=== PATIENT | female | born 1955 | race Caucasian/White ===

== ENCOUNTER → 2022-02-05 | Outpatient (CLI) | payer MEDICARE, OTHER, SELFPAY ==
--- NOTE | 2022-02-05 16:38 | CT_ITS ---
EXAM: CT CHEST WITHOUT INTRAVENOUS CONTRAST CLINICAL INDICATION: COUGH TECHNIQUE: Helically acquired images were obtained of the chest without intravenous contrast. This CT exam was performed using one or more of the following dose reduction techniques: automated exposure control, adjustment of the mA and/or kV according to patient size, and/or use of iterative reconstruction technique. This report was created using [employer] report generation technology. RADIATION DOSE: Total DLP: 237.13 mGy-cm. COMPARISON: None. FINDINGS: LUNGS AND PLEURAL SPACES: Minimal biapical pleuroparenchymal scarring. Linear scarring or atelectasis within the azygous-esophageal recess. No pulmonary interstitial thickening. No patchy pneumonia. Anteriorly within the right middle lobe is a 6 x 3 x 3 mm ovoid circumscribed noncalcified subpleural nodule. HEART: Minimal coronary artery calcification. No significant pericardial effusion. MEDIASTINUM: Unremarkable. No mediastinal adenopathy. Esophagus is unremarkable. No hiatal hernia. THYROID: Visualized thyroid is unremarkable. No thyroid lesions. BONES/JOINTS: No lytic or blastic osseous lesion. Midthoracic degenerative spurring. Multiple thoracic Schmorl''s nodes. Prominent Schmorl''s node or old central compression deformity of the L1 and L2 superior endplates. SOFT TISSUES: Findings of prior bilateral mastectomy. Surgical clips within the right anterior chest wall. VASCULATURE: Minimal fusiform dilatation of the ascending thoracic aorta which measures 3.7 cm in transverse diameter, as can be seen with aortic valvular disease. Aortic arch and descending thoracic aorta are minimally calcific and normal in caliber. LYMPH NODES: No mediastinal adenopathy. No axillary adenopathy. UPPER ABDOMEN: Visualized portions of the liver, gallbladder, pancreas, spleen, adrenal glands and renal upper poles are unremarkable. No pneumoperitoneum is noted. CT/Chest without Contrast IMPRESSION: No pneumonia or findings of bronchitis. 6 x 3 x 3 mm circumscribed noncalcified subpleural nodule in the right middle lobe, probably benign; Fleischner Society Guidelines for low-risk patients recommend follow-up chest CT at 6-12 months. If unchanged consider an additional follow-up CT at 18-24 months. For high-risk patients (smoking history or other known risk factors) initial follow-up chest CT at 6-12 months and if unchanged, 18-24 months. Electronically Signed: Robert Tamayo MD at 3:55 EDT ,
== END | disposition home or self-care (01) ==
LOC: CT 16:36
PROVIDERS: PCP Internal Medicine; Visit Provider Internal Medicine Pulmonary Disease
DX: R05.9 Cough, unspecified (principal); R91.1 Solitary pulmonary nodule
CPT/HCPCS: 71250

== ENCOUNTER 2022-11-11 07:21 | Day surgery (SDC) | payer MEDICARE, SELFPAY ==
[2022-11-11] VITALS (7 sets, daily range): BP systolic 98–115; BP diastolic 68–89; PULSE 63–78; RESP 16–17; TEMP 36.2–36.4; O2SAT 95–100; BMI 19.8
[2022-11-11] MEDS: Lactated Ringers 1,000 ML 15 ML IV (07:46)
--- NOTE | 2022-11-11 08:30 | EGD_PTH ---
PATIENT: MANNY REINOSO LOC: EN U#:[id number] AGE/SX: 67/F ROOM: RE11/11/[address]: Dr. Homero Chou DO : 1955 BED: DIS: 11/11/2022 SPEC #: [id number] RECD: 11/11/22 10:13 STATUS: DELFINA RELang #: [id number] KAHLIL: 11/11/22 08:[address]: Homero Chou DEPT: SURGICAL PATHOLOGY RECD BY: Edwige Henderson ENTERED: 11/11/22 13:02 SP TYPE: EGD BIOPSY OT DR: Dr. Drea Kingston MD Tissues: Esophagus, NOS Procedures: Surgery Specimen Level IV HEADER OPERATION: EGD ([facility] [place], [place]) with PH probe placement, biopsy PRE-OP DIAGNOSIS: GERD TISSUE SUBMITTED: Random esophagus biopsy MICROSCOPIC DIAGNOSIS Esophagus, random biopsy: Fragments of squamous mucosa with minimal chronic inflammation. SJ:diego 11/12/2022 MICROSCOPIC DESCRIPTION Slides are reviewed. GROSS DESCRIPTION Received in fixative is one container labeled with the patient's name and designated random esophagus biopsy. The specimen consists of two irregular fragments of light suarez soft tissue that in aggregate measure 0.6 x 0.3 x 0.1 cm. The specimen is totally submitted in one cassette. / BENJAMIN:diego 11/11/2022 TC:3 CPT: 58129
--- NOTE | 2022-11-11 08:48 | OP.EGD_ITS ---
Patient Name: Izzy Rosenthal Procedure Date: 11/11/2022 8:28 AM Date of : 1955 Age: 67 Procedure: Upper GI endoscopy Indications: Suspected esophageal reflux Providers: Homero Chou DO Referring MD: Homero Chou DO Medicines: Monitored Anesthesia Care Patient Profile: This is a 67 year old female. Refer to note in patient chart for documentation of history and physical. Patient has symptoms of chronic cough. Complications: No immediate complications. Procedure: Pre-Anesthesia Assessment: - Prior to the procedure, a History and Physical was performed, and patient medications and allergies were reviewed. The risks and benefits of the procedure and the sedation options and risks were discussed with the patient. All questions were answered and informed consent was obtained. Patient identification and proposed procedure were verified by the physician in the pre-procedure area. Mental Status Examination: alert and oriented. Respiratory Examination: clear to auscultation. CV Examination: normal. Prophylactic Antibiotics: The patient does not require prophylactic antibiotics. Prior Anticoagulants: The patient has taken no previous anticoagulant or antiplatelet agents. After reviewing the risks and benefits, the patient was deemed in satisfactory condition to undergo the procedure. The anesthesia plan was to use monitored anesthesia care (MAC). Immediately prior to administration of medications, the patient was re-assessed for adequacy to receive sedatives. The heart rate, respiratory rate, oxygen saturations, blood pressure, adequacy of pulmonary ventilation, and response to care were monitored throughout the procedure. The physical status of the patient was re-assessed after the procedure. After obtaining informed consent, the endoscope was passed under direct vision. Throughout the procedure, the patient's blood pressure, pulse, and oxygen saturations were monitored continuously. The gastroscope was introduced through the mouth, and advanced to the second part of duodenum. The upper GI endoscopy was accomplished without difficulty. The patient tolerated the procedure well. Scope In: 8:39:33 AM Scope Out: 8:43:46 AM Total Procedure Duration Time 0 hours 4 minutes 13 seconds Findings: The examined esophagus was normal. Biopsies were obtained from the proximal and distal esophagus with cold forceps for histology of suspected eosinophilic esophagitis. The MCCOLLUM capsule with delivery system was introduced through the mouth and advanced into the esophagus, such that the MCCOLLUM pH capsule was positioned 40 cm from the incisors, which was 6 cm proximal to the GE junction. Suction was applied to the well of the MCCOLLUM pH capsule to suck in the adjacent mucosa of the esophagus using the external vacuum pump set at a minimum vacuum pressure of 550 mmHg for 30 seconds. The MCCOLLUM pH capsule was then deployed by depressing the plunger on top of the handle to advance the locking pin into the mucosa, thereby attaching the capsule to the esophagus. The plunger was then rotated a quarter turn clockwise to release the capsule from the delivery system. The delivery system was then withdrawn. Endoscopy was utilized for probe placement and diagnostic evaluation. The entire examined stomach was normal. A small hiatal hernia was present. The second portion of the duodenum was normal. Impression: - Normal esophagus. Biopsied. - Normal stomach. - Small hiatal hernia. - Normal second portion of the duodenum. - The MCCOLLUM pH capsule was positioned 40 cm from the incisors, which was 6 cm proximal to the GE junction. Recommendation: - Discharge patient to home. - Resume previous diet. - Continue present medications. - Await pathology results. Procedure Code(s): --- Professional --- 45823, Esophagogastroduodenoscopy, flexible, transoral; with biopsy, single or multiple CPT copyright 2017 [employer] [place] [employer]. All rights reserved. The codes documented in this report are preliminary and upon beveler review may be revised to meet current compliance requirements. Homero Chou DO 11/11/2022 8:48:16 AM This report has been signed electronically. Number of Addenda: 0 Note Initiated On: 11/11/2022 8:28 AM
--- NOTE | 2022-11-11 08:49 | OP.CCLET_ITS ---
11/11/2022 Drea Kingston [address] [place] [address] Re : Upper GI endoscopy procedure for Izzy Rosenthal Dear Dr. Kingston This procedure was performed on Friday, November 11, 2022. My impressions and recommendations are as follows: Impressions : - Normal esophagus. Biopsied. - Normal stomach. - Small hiatal hernia. - Normal second portion of the duodenum. - The MCCOLLUM pH capsule was positioned 40 cm from the incisors, which was 6 cm proximal to the GE junction. Recommendations : - Discharge patient to home. - Resume previous diet. - Continue present medications. - Await pathology results. My findings are described in the full procedure note, which is enclosed. If I can be of further assistance, please feel free to contact me at . Sincerely, Homero Chou, 11/11/2022 8:48:16 AM This report has been signed electronically.
--- NOTE | 2022-11-13 09:50 | HP.PCM_ITS ---
History and Physical Date of Admission: 11/11/22 67 F who presents to the office today to establish with GI for chronic cough that began greater than 10 yrs ago. She is referred by [employer] [facility] Dr Thomson for pH probe. Per Dr Sams's note, her Allergies are controlled with Claritin- D, nasacort, astelin, and singulair; no relief of cough with recent pulse of oral steroids; PRASANTH and ESR are normal, they were checked due to concern for possible endobronchial sarcoid; asthma controlled with Breo. She has rectal prolapse, needs surgery for it, but needs to get cough controlled first. She was followed by GI Dr Coto in [place] previously, had EGD and colonoscopy a couple of years ago, treated for the cough with amitriptyline but no relief and she was zombie on it, also tried gabapentin. Taking pantoprazole 20 mg daily, doesn't think it helps with the cough. No dysphagia. No nausea, vomiting. No heartburn or acid reflux. Cough can be worse when the temperature changes. Increased phlegm with milk products. Carbonated drinks cause her to lose her voice. Saw a food rn transition recently, he recommended Creon--no improvement to cough, allergic to tomato, potato, salmon, tuna. [place] and tuna were the only fish/meat that she ate. Follows a mostly plant-based diet due to 's heart health issues. Less bloating on gluten-free diet, but no change in cough. Tends to have lots of gas, even before vegan diet. BMs are good, no diarrhea or constipation, no melena or hematochezia. PMH: breast cancer s/p bilateral mastectomy, allergies, asthma ROS Const Constitutional: No fatigue ENT ENT: No difficulty swallowing Gastro GI: No abdominal pain, belching, bloating, change in bowel habits, change in stool character, coffee ground emesis, constipation, cramping, diarrhea, heartburn, difficulty swallowing, feeling full early, excessive flatus, incontinent of stools, Vomiting blood/hematemesis, Blood in stool, loose stools, Black,tarry stools, nausea/dyspepsia, pain with swallowing, vomiting or other Musc Musculoskeletal: No joint pain Skin Skin: No yellowing of the eye or itchy eyes Psych Psychiatric: No anxiety and No depression Endo Endocrine: No fatigue Aller/Imm Allergy/Immunologic: No itchy eyes Micheal/Lymp Hematologic/Lymphatic: No easy bleeding or easy bruising Exam Const General: cooperative and healthy appearing Nutritional Appearance: average body habitus Orientation: alert, awake and oriented x3 HENMT Head: normal to inspection Eyes Sclera: sclerae normal Resp Effort & Inspection: normal respiratory effort Other: coughed repeatedly when first arrived to appt GI Inspection: normal to inspection Assessment and Plan Assessment and Plan (1) Chronic cough: Status: Chronic Plan: 67 yr old female with chronic dry cough. Allergies and asthma are controlled. Consider EOE. No improvement in cough with PPI, gluten-free, Creon (per rn transition). EGD with Treviño pH probe, she will d/c pantoprazole one wk prior. Could consider esophageal manometry. Records release for GI Dr Coto. F/u 2 wks after EGD. I have examined the patient and the H&P has been reviewed. There are no clinical changes since date of exam.
--- NOTE | 2024-12-06 08:32 | PCM.PRE.AN2 ---
ASA Classification* ASA Classification ASA Classification: 2 Assessment & Plan Anesthesia* Anesthesia Assessment Anesthesia Assessment: Discussed sedation and/or anesthesia options, risks, benefits, and alternatives with patient/parents/legal guardian/POA. Questions invited. The patient/parents/legal guardian/POA seems to understand and agrees to proceed with anesthesia plan. Reviewed the physical assessment, medical history, allergy history and patient home medications list prior to surgery/procedure/anesthetic and documented any changes. Performed airway and anesthesia risk assessments. Anesthesia Type Anesthesia Type: MAC Anesthesia Focused Assessment* Temperature: 97.1 F Pulse Rate: 63 Blood Pressure: 115/76 Respiratory Rate: 16 Pulse Ox: 97 Oxygen Delivery Method: Room Air Airway Assessment Mouth opens: >3 cm Mallampati Score: I Teeth Condition: Intact Neck Range of motion (ROM): Full ROM Labs Anesthesia Preop lab: CBC WBC 4.0 K/mm3 (4.4-11.0) L 11/27/22 10:53 11/27/22 RBC 4.40 M/mm3 (4.2-5.4) 11/27/22 10:53 11/27/22 Hgb 13.5 g/dL (12.0-15.0) 11/27/22 10:53 11/27/22 Hct 41.6 % (37-47) 11/27/22 10:53 11/27/22 Plt Count 246 K/mm3 (150-450) 11/27/22 10:53 11/27/22 CHEMISTRY Potassium 3.7 mmol/L (3.5-5.1) 11/27/22 10:53 11/27/22 Sodium 140 mmol/L (136-145) 11/27/22 10:53 11/27/22 BUN 10 mg/dL (7-18) 11/27/22 10:53 11/27/22 Creatinine 0.95 mg/dL (0.55-1.02) 11/27/22 10:53 11/27/22 Glucose 87 mg/dL (74-106) 11/27/22 10:53 11/27/22 COAG Pre-Assessment Diagnosis/Proposed Procedure Planned Operative Procedure(s): EGD PH PROBE Anesthesia History Anesthesia History - instructional media services technician: Anesthesia History - instructional media services technician Hx Hospitalization No 11/05/22 12:22 Any Problems With Anesthesia Yes: AL[employer]LE [employer] 11/05/22 12:22 Cholinesterase deficiency No 11/05/22 12:22 You/Your Family Experience No 11/05/22 12:22 fever (hyperthermia) with Relationship Recent Exposure to Contagious No 11/11/22 07:44 Disease Does patient have nerve No 11/05/22 12:22 stimulator Patient instructed to have device shut off --Does patient have Pacemaker No 11/11/22 07:44 or ICD? When Was Last Pacemaker Check QUESTION #4 FULL TEXT: You/Your Family Experience fever (hyperthermia) with Anesthesia Last Oral Intake Last Oral intake: Last Oral Intake NPO since 00:00 11/11/22 07:44 Meds taken in AM with sips of No 11/11/22 07:44 water? Meds patient instructed to take am of surgery PONV PONV - instructional media services technician: PONV - instructional media services technician Female Yes 11/05/22 12:22 HX of Motion Sickness No 11/05/22 12:22 HX of N/V After Surgery No 11/05/22 12:22 Non-Smoker Yes 11/05/22 12:22 Duration of Surgery greater No 11/05/22 12:22 than 60 minutes Number of Risk Factors 2 11/05/22 12:22 PONV Score Moderate Risk 11/05/22 12:22 Height & Weight Height & Weight: Anesthesia: Height & Weight Height 5 ft 5 in 11/11/22 07:44 Weight: 54 kg 11/11/22 07:44 Body Mass Index (BMI) 19.8 11/11/22 07:44 Respiratory Assessment Respiratory Assessment - instructional media services technician: Respiratory Tract Infection Hx - instructional media services technician Hx Respiratory Tract Infection No 11/05/22 12:22 STOP Sleep Apnea STOP Sleep Apnea - instructional media services technician: STOP Sleep Apnea - instructional media services technician Hx Hypertension No 11/05/22 12:22 Hx Sleep Apnea No 11/05/22 12:22 CPAP BIPAP Do you snore loudly (louder No 11/05/22 12:22 than talking or can be heard Do you often feel tired/ No 11/05/22 12:22 fatigued/ sleepy during daytime? Has anyone observed you stop No 11/05/22 12:22 breathing during sleep? STOP Results Negative 11/11/22 08:48 QUESTION #5 FULL TEXT : Do you snore loudly (louder than talking or can be heard through closed doors)? 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 Use History - instructional media services technician: Tobacco Use History - instructional media services technician Tobacco Use Smoking Status Never smoker 11/05/22 12:22 Hx Tobacco Use No 11/05/22 12:22 Years Smoking Packs Smoked per Day Smoking Cessation Date was within the last 15 years Hx Smoking Cessation Date Hx Smoking Cessation Counseling Hematologic Medial History Hematologic Hx - instructional media services technician: Hematologic Medical Hx - documentation clerk Hx of Blood Transfusion No 11/05/22 12:22 Hx of Transfusion in last 3 No 11/05/22 12:22 Months Date of Last Transfusion (if within last 3 months) Ever experience any problems No 11/05/22 12:22 with transfusion(s)? Specify any problems Hx of Preganancy in last 3 No 11/05/22 12:22 Months Nurse Filling Out Transfusion DSCHRIBER 11/05/22 12:22 & Questions: Date: 11/05/22 11/05/22 12:22 Time: 12:24 11/05/22 12:22 Patient unable to answer at this time (ie. confused, unrespo /Reproduction History /Reproductive History - instructional media services technician: /Reproductive Hx- instructional media services technician Hx Now No 11/05/22 12:22 Gestational Age (in weeks): EDC: Hx Hx Para Hx Section SAB No 11/05/22 12:22 PFSH Medical History Cancer Easy bruising History of hiatal hernia Asthma History of echocardiogram History of mitral valve prolapse Wears hearing aid Wears contact lenses Wears glasses Post-menopausal Anemia Dietary restriction History of ulceration Rectal prolapse Non-smoker Hx of fracture of wrist HX: breast cancer Osteopenia Chronic cough GERD (gastroesophageal reflux disease) Mild persistent asthma Allergic rhinitis Home Medications ?Medication ?Instructions ?Recorded ?Last Taken ?Type Saccharomyces boulardii 250 mg 5,000 mmu cells PO DAILY 05/05/22 12/04/24 History capsule (Digest Probiotic (S.boulardii)) albuterol sulfate 90 mcg/actuation 1 inh inhalation ONCE PRN 05/05/22 Unknown History aerosol inhaler (ProAir HFA) shortness of breath or wheezing azelastine 137 mcg (0.1 %) nasal 1 spray intranasal BID 05/05/22 12/04/24 History spray calcium-vit D3-ferrous fumarate 1 tab PO DAILY 05/05/22 Unknown History 600 mg-125 unit-18 mg tablet glucosamine sulfate 500 mg tablet 500 mg PO DAILY 05/05/22 Unknown History (Glucosamine) montelukast 10 mg tablet 10 mg PO DAILY 05/05/22 12/04/24 History (Singulair) multivitamin 2 tab PO DAILY 05/05/22 Unknown History pantoprazole 20 mg tablet,delayed 20 mg PO DAILY 05/05/22 12/04/24 History release (Protonix) cholecalciferol (vitamin D3) 25 25 mcg PO DAILY 11/05/22 12/04/24 History mcg (1,000 unit) capsule (Vitamin D3) loratadine-pseudoephedrine ER 10 1 tab PO DAILY 11/05/22 12/04/24 History mg-240 mg tablet,extended [id number] (Claritin-D 24 Hour) triamcinolone acetonide 55 mcg 2 spray intranasal BID 11/05/22 12/04/24 History nasal spray aerosol (Nasacort Allergy) vitamin B12 0.5 mg-folic acid 1 mg 1 tab PO DAILY 11/05/22 12/04/24 History tablet amitriptyline 10 mg tablet 10 mg PO QHS 11/30/24 12/04/24 History fluticasone furoate 200 1 inh inhalation DAILY 11/30/24 12/04/24 History mcg/actuation blister powder for inhalation (Arnuity Ellipta) Allergy/AdvReac Type Severity Reaction Status Date / Time salmon oil AdvReac Intermediate Nausea Verified 12/06/24 06:01 tuna oil AdvReac Intermediate Nausea Verified 12/06/24 06:01 erythromycin base AdvReac Mild Upset Verified 12/06/24 06:01 Stomach tomato AdvReac Mild Upset Verified 12/06/24 06:01 Stomach potato AdvReac Upset Verified 12/06/24 06:01 Stomach Surgical History History of cardiac catheterization History of surgery on wrist History of esophagogastroduodenoscopy (EGD) Hx of colonoscopy H/O bilateral mastectomy Social History Smoking Status: Never smoker Review of Systems (Anesthesia) ROS Narrative System reviewed and no additional complaints, except as documented.
--- NOTE | 2024-12-06 08:35 | PCM.POSTANE2 ---
Anesthesia Postop Eval I Sum Anesthesia Postop Eval I Summary Anesthesia Postop Eval I Summary: Anesthesia Postop Eval I: Assessment Summary Airway patent Spontaneous unlabored respirations Mental status nausea Vomiting Anesthesia Postop Eval I: Fluid Summary Crystalloid volume administer (ml) Colloids volume administered ( ml) Blood Product volume administered (ml) Total IV fluid infused Anesthesia Postop Eval I: Summary Notes Anesthesia Complication Anesthesia Complication Comment: Post-operative progress note Anesthesia: Postop Eval II Evaluation Mental status: Awake and Calm Pain Level: 0 nausea: No Vomiting: No Progress Note Post-operative progress note: Meets discharge criteria Complications Anesthesia Complication: No
== END 2022-11-11 10:24 | disposition home or self-care (01) ==
LOC: EN 07:26 → AC 07:32
PROVIDERS: PCP Internal Medicine; Referring Provider Internal Medicine; Visit Provider Internal Medicine Gastroenterology
PROC: 0DJ08ZZ Inspection of Upper Intestinal Tract, Via Natural or Artificial Opening Endoscopic (ICD-10-PCS; CPT 43235; principal; 2022-11-11 08:25)
DX: R05.3 Chronic cough (principal); K44.9 Diaphragmatic hernia without obstruction or gangrene; J45.30 Mild persistent asthma, uncomplicated; Z79.51 Long term (current) use of inhaled steroids
CPT/HCPCS: 43235; 88305; J7120; J2405

== ENCOUNTER → 2022-11-27 | Outpatient (CLI) | payer MEDICARE, SELFPAY ==
[2022-11-27 11:28] LABS: Absolute Lymphocyte Count 1.33 X10^3/uL (0.83-4.51); Absolute Neutrophil Count 2.3 X10^3/uL (2.0-7.7); Basophil# 0.02 X10^3/uL; Basophil% 0.5 % (0-1); Erythrocyte Sedimentation Rate 3 mm/hr (0-30); Hematocrit 41.6 % (37-47); Hemoglobin 13.5 g/dL (12.0-15.0); Lymphocyte # 1.33 X10^3/ul (0.83-4.51); Lymphocyte % 33.7 % (19-41); Mean Corp Hgb Conc 32.5 g/dL (32-36); Mean Corpuscular Hgb 30.7 pg (27.0-32.0); Mean Corpuscular Volume 94.5 fL (81-99); Mean Platelet Vol. 9.3 fl (6.2-12.0); Monocyte# 0.32 X10^3/uL; Monocyte% 8.1 % (0-10); NRBC Flagged by Analyzer 0 % (0-5); Neutrophil # 2.28 X10^3/uL (2.7-7.7); Neutrophil % 57.7 % (47-70); Platelet Count 246 K/mm3 (150-450); RBC Distribution Width CV 12.8 % (11.6-14.6); RBC Distribution Width SD 44.5 fl (35.1-43.9)
[2022-11-27 11:58] LABS: ALB/GLOB Ratio 1.2 RATIO (0.9-2.4); AST(SGOT) 18 U/L (15-37); Alanine Aminotransfer ALT/SGPT 27 U/L (13-56); Albumin, Serum 3.7 g/dL (3.2-5.0); Alkaline Phosphatase 62 U/L (45-117); Amylase 56 U/L (25-115); Anion Gap 3 (5-15); BUN 10 mg/dL (7-18); BUN/Creat Ratio 10.6 RATIO (10-20); CRP < 2.90 mg/L (0.0-3.0); Calcium,Total 9.7 mg/dL (8.5-10.1); Chloride 106 mmol/L (98-107); Creatinine, Serum 0.95 mg/dL (0.55-1.02); EST Glomerular Filtration Rate 63 mL/min (>60); Est Glom Filt Rate - Afr Amer 76 mL/min (>60); Glucose 87 mg/dL (74-106); Lipase 42 U/L (13-75); Potassium 3.7 mmol/L (3.5-5.1); Protein, Total 6.7 g/dL (6.4-8.2); Sodium Level 140 mmol/L (136-145)
[2022-11-30 16:14] LABS: Anti-Centromere B Ab <0.2 AI (0.0-0.9); Anti-Chromatin <0.2 AI (0.0-0.9); Anti-Jo <0.2 AI (0.0-0.9); Anti-Scleroderma-70 AB <0.2 AI (0.0-0.9); Anti-dsDNA Ab <1 IU/mL (0-9); RNP Ab <0.2 AI (0.0-0.9); SJOGREN'S Anti-SS-A test < 0.2 AI (0.0-0.9); SJOGREN'S Anti-SS-B test < 0.2 AI (0.0-0.9); Smith Ab <0.2 AI (0.0-0.9)
[2022-12-01 15:18] LABS: Angiotensin Convert Enzyme 35 U/L (14-82); Ceruloplasmin 22.9 mg/dL (19.0-39.0); Copper, Serum or Plasma 102 ug/dL (80-158); Cytoplasmic Ab (C-ANCA) <1:20 titer (Neg:<1:20); Endomysial Antibody IgA Negative (Negative); Immunoglobulin A 146 mg/dL (87-352); Immunoglobulin E 16 IU/mL (6-495); Immunoglobulin G 761 mg/dL (586-1602); Immunoglobulin M 106 mg/dL (26-217); Perinuclear Ab (P-ANCA) <1:20 titer (Neg:<1:20); t-Transglutaminase IgA <2 U/mL (0-3)
== END | disposition home or self-care (01) ==
PROVIDERS: Referring Provider Internal Medicine Gastroenterology; Visit Provider Internal Medicine Gastroenterology
DX: R05.3 Chronic cough (principal)
CPT/HCPCS: 36415; 80053; 82150; 82164; 82390; 82525; 82784; 82785; 83516; 83690; 85025; 85652; 86140; 86225; 86235; 86255; 86256

== ENCOUNTER 2024-12-06 05:33 | Day surgery (SDC) | payer MEDICARE, SELFPAY ==
--- NOTE | 2024-11-30 19:54 | PAT.ANESEVAL ---
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 When Was Last Pacemaker Check QUESTION #4 FULL TEXT: You/Your Family Experience fever (hyperthermia) with Anesthesia Last Oral Intake Last Oral intake: Last Oral Intake NPO since Meds taken in AM with sips of water? 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 Female Yes 11/30/24 15:20 HX of Motion Sickness Yes 11/30/24 15:20 HX of N/V After Surgery No 11/30/24 15:20 Non-Smoker Yes 11/30/24 15:20 Duration of Surgery greater No 11/30/24 15:20 than 60 minutes Number of Risk Factors 3 11/30/24 15:20 PONV Score Moderate Risk 11/30/24 15:20 Height & Weight Height & Weight: Anesthesia: Height & Weight Height 5 ft 5 in 11/11/22 07:44 Respiratory Assessment Respiratory Assessment - sheet metal worker supervisor: Respiratory Tract Infection Hx - sheet metal worker supervisor Hx Respiratory Tract Infection No 11/30/24 15:20 STOP Sleep Apnea STOP Sleep Apnea - sheet metal worker supervisor: STOP Sleep Apnea - sheet metal worker supervisor Hx Hypertension No 11/30/24 15:20 Hx Sleep Apnea No 11/30/24 15:20 CPAP BIPAP Do you snore loudly (louder No 11/30/24 15:20 than talking or can be heard Do you often feel tired/ No 11/30/24 15:20 fatigued/ sleepy during daytime? Has anyone observed you stop No 11/30/24 15:20 breathing during sleep? STOP Results Negative 11/30/24 15:20 QUESTION #5 FULL TEXT : Do you snore loudly (louder than talking or can be heard through closed doors)? 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 Specify any problems Hx of Preganancy in last 3 No 11/30/24 15:20 Months Nurse Filling Out Transfusion MGRIFFITH 11/30/24 15:20 & Questions: Date: 11/30/24 11/30/24 15:20 Time: 15:21 11/30/24 15:20 Patient unable to answer at this time (ie. confused, unrespo /Reproduction History /Reproductive History - sheet metal worker supervisor: /Reproductive Hx- sheet metal worker supervisor Hx Now No 11/30/24 15:20 Gestational Age (in weeks): EDC: Hx Hx Para Hx Section SAB No 11/30/24 15:20 [facility] Medical History (Updated 11/30/24 @ 15:29 by Brooke Kirkland) Cancer Easy bruising History of hiatal hernia Asthma History of echocardiogram History of mitral valve prolapse Wears hearing aid Wears contact lenses Wears glasses Post-menopausal Anemia Dietary restriction History of ulceration Rectal prolapse Non-smoker Hx of fracture of wrist HX: breast cancer Osteopenia Chronic cough GERD (gastroesophageal reflux disease) Mild persistent asthma Allergic rhinitis Home Medications ?Medication ?Instructions ?Recorded ?Last Taken ?Type Saccharomyces boulardii 250 mg 5,000 mmu cells PO DAILY 05/05/22 Unknown History capsule (Digest Probiotic (S.boulardii)) albuterol sulfate 90 mcg/actuation 1 inh inhalation ONCE PRN 05/05/22 Unknown History aerosol inhaler (ProAir HFA) shortness of breath or wheezing azelastine 137 mcg (0.1 %) nasal 1 spray intranasal BID 05/05/22 Unknown History spray calcium-vit D3-ferrous fumarate 1 tab PO DAILY 05/05/22 Unknown History 600 mg-125 unit-18 mg tablet glucosamine sulfate 500 mg tablet 500 mg PO DAILY 05/05/22 Unknown History (Glucosamine) montelukast 10 mg tablet 10 mg PO DAILY 05/05/22 Unknown History (Singulair) multivitamin 2 tab PO DAILY 05/05/22 Unknown History pantoprazole 20 mg tablet,delayed 20 mg PO DAILY 05/05/22 11/04/22 History release (Protonix) cholecalciferol (vitamin D3) 25 25 mcg PO DAILY 11/05/22 Unknown History mcg (1,000 unit) capsule (Vitamin D3) loratadine-pseudoephedrine ER 10 1 tab PO DAILY 11/05/22 Unknown History mg-240 mg tablet,extended [id number] (Claritin-D 24 Hour) triamcinolone acetonide 55 mcg 2 spray intranasal BID 11/05/22 Unknown History nasal spray aerosol (Nasacort Allergy) vitamin B12 0.5 mg-folic acid 1 mg 1 tab PO DAILY 11/05/22 Unknown History tablet amitriptyline 10 mg tablet 10 mg PO QHS 11/30/24 Unknown History fluticasone furoate 200 1 inh inhalation DAILY 11/30/24 Unknown History mcg/actuation blister powder for inhalation (Arnuity Ellipta) Allergy/AdvReac Type Severity Reaction Status Date / Time salmon oil AdvReac Intermediate Nausea Verified 11/30/24 15:13 tuna oil AdvReac Intermediate Nausea Verified 11/30/24 15:13 erythromycin base AdvReac Mild Upset Verified 11/30/24 15:13 Stomach tomato AdvReac Mild Upset Verified 11/30/24 15:13 Stomach potato AdvReac Upset Verified 11/30/24 15:13 Stomach Surgical History (Updated 11/30/24 @ 15:29 by Brooke Kirkland) History of cardiac catheterization History of surgery on wrist History of esophagogastroduodenoscopy (EGD) Hx of colonoscopy H/O bilateral mastectomy Social History Smoking Status: Never smoker Audit: Pertinent Findings Pertinent Findings Echo (EF%) pertinent findings: TTE 01/18/2024: LV with normal size and function. LVEF of 55 to 65% and without wall motion abnormalities. RV with normal size and function. Mild to moderate mitral valve regurgitation and prolapse. No aortic valve stenosis or regurgitation noted. Heart catheterization pertinent findings: 03/28/2024: No angiographic coronary artery disease identified throughout. Recommendation Anesthesia Recommendation Anesthesia recommendation: OPTIMIZED for anesthesia
[2024-12-06] VITALS (8 sets, daily range): BP systolic 96–123; BP diastolic 59–85; PULSE 57–78; RESP 16; TEMP 36.2–36.3; O2SAT 97–100; BMI 19.4
--- OUTSIDE RECORDS SUMMARY | 2024-12-06 05:36 | XMS RPT_ITS | CCD ---
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 Pamela Kingston Primary Care Provider Friend, Dr. Valentin Attending Provider Pamela Kingston MD Primary Care Provider JUAN KNOX DO Primary Care Physician [phone] JUAN KNOX DO Attending Unavailable JUAN KNOX DO Primary Care Unavailable JUAN KNOX DO Attending Unavailable ABILIO HERNANDEZ, JUAN Primary Care Unavailable HALTEODORA HERNANDEZ, JUAN Primary Care Unavailable YENI JULIEN PA-C Attending Unavailable ABILIO HERNANDEZ, JUAN Primary Care Unavailable DR SOPHIE COHN MD Attending Unav ailable JUAN KNOX DO Primary Care Unavailable YENI JULIEN PA-C Attending Unavailable JUAN KNOX DO Primary Care Unavailable DR SOPHIE COHN MD Attending Unav ailable Maryam Yanez PA-C Unavailable 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 READING 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.Leticia JORDAN Unavailable Sallie Pollock PA-C Unavailable Unavailable Primary Care Provider UnavailPAMELA Juan Primary Care Unavailable LETICIA HARPER Attending Unavailable Care Physician, No Primary Primary Care Provider Unavailable Care Physician, No Primary Referring Provider Un available Mia Carlisle Attending Provider JUAN KNOX DO Primary Care Unavailable JUAN KNOX DO Attending Unavailable BABAKJUAN ARAIZA DO Primary Care Unavailable BABAKJUAN ARAIZA DO Attending Unavailable BABAKJUAN ARAIZA DO Primary Care Unavailable GUY WATSON MD, DR BARRIOS Attending Unav ailable JUAN KNOX DO Primary Care Unavailable JUAN KNOX DO Attending Unavailable Mia Whalen Attending Unavailable Care Physician, No Primary Referring Unava ilable Care Physician, No Primary Primary Care Unava ilable FriendHomero Attending Unavailable Juan Knox Referring Unavailable BabakJuan araiza Primary Care Unavailable Allergies Allergy Classification Reported Allergen(s) Allergy Type Date of Onset Reaction(s) Facility (20 sources) Erythromycin; Translations: [ERYTHROMYCIN BASE] Drug Allergy 2 GI Upset, Stomach ache (finding) [facility] Work Phone: (10 sources) potato allergenic extract; Translations: [POTATO] Drug Allergy 3 GI Upset [facility] (10 sources) tomato allergenic extract; Translations: [TOMATO] Drug Allergy 3 GI Upset [facility] (1 source) EES Propensity to adverse reactions 3 Upset Stomach [facility] (6 sources) SALMON Propensity to adverse reactions 3 Stomach ache (finding) [facility] (1 source) TUNA Propensity to adverse reactions 3 Upset Stomach [facility] (8 sources) salmon oil; Translations: [SALMON OIL] Drug Allergy 3 GI Upset [facility] (9 sources) Tuna Oil; Translations: [TUNA OIL] Drug Allergy 3 GI Upset [facility] (5 sources) Tuna fish Food allergy Stomach ache (finding) [facility] (5 sources) Tomatoes Food allergy Stomach ache (finding) [facility] (5 sources) Potatoes Food allergy Stomach ache (finding) [facility] (1 source) Erythromycin Drug Allergy 5 [facility] Repository (1 source) potato allergenic extract Drug Allergy 5 [facility] Repository (1 source) salmon oil Drug Allergy 5 [facility] Repository (1 source) tomato allergenic extract Drug Allergy 5 [facility] Repository Medications Current Medications Medication Drug Class(es) Dates Sig (Normalized) Sig (Original) [id number] 200 actuat albuterol 0.09 mg/actuat metered dose inhaler (9 sources) beta2-Adrenergic Agonist Start: 05-05-2022 albuterol HFA (PROVENTIL HFA, VENTOLIN HFA) 90 mcg/actuation inhaler Inhale as instructed. 05/05/2022 Active Start: 05-05-2022 Albuterol Sulf ate (Proair Hfa) 90 mcg/actuation HFA aerosol inhaler Active 1 NMA INHALATION ONCE May 05, 2022 1:00am Start: 05-05-2022 Albuterol Sulf ate (Proair Hfa) 90 mcg/actuation HFA aerosol inhaler Active 1 INH INHALATION ONCE May 05, 2022 1:00am Comment on above: Inhale as instructed . amoxicillin 875 mg / clavulanate 125 mg oral tablet (1 source) Penicillin-class Antibacterial Start: 2 End: 2 take 1 tablet by mouth twice daily amoxicillin-clavul anic acid (AUGMENTIN) 875-125 mg per tablet Take 1 tablet by mouth twice daily for 5 days. 10 tablet 0 03/19/2022 03/24/2022 Active Comment on above: Take 1 tablet by rina twice daily for 5 days. aspirin 325 mg oral tablet (2 sources) Platelet Aggregation Inhibitor, Nonsteroidal Anti-inflammatory Drug Start: 4 aspirin 325 mg oral tablet Dose : 325 mg = 1 tab(s), Oral, Once, 0 Refill(s) Start Date: 03/28/24 Status: Ordered azelastine hydrochloride 0.137 mg/actuat metered dose nasal spray (20 sources) Histamine-1 Receptor Antagonist Start: 4 azelastine 137 mcg/inh (0.1%) nasal spray 274 mcg Dose = 2 spray(s), Intranasal, BID, # 30 mL, 0 Refill(s) Start Date: 12/13/23 Status: Ordered Start: 05-05-2022 take 1 spray(s) nasa l route twice daily Azelastine Active 1 SPRAY INTRANASAL TWICE A DAY May 05, 2022 1:00am administer into each nostril Start: 06-04-2021 take 1 spray(s) nasa l route twice daily azelastine (ASTELIN) 0.1% nasal spray Use 1 [place] in each nostril twice daily. 06/04/2021 Active Comment on above: Use 1 [place] in each nostril twice daily. benzonatate 100 mg oral capsule (11 sources) Non-narcotic Antitussive Start: 2021 End: 2022 take 1 capsule by mouth three times daily as needed for cough benzonatate (TESSALON PERLES) 100 mg capsule Indications: Acute non-recurrent maxillary sinusitis , Acute cough Take 1 capsule by mouth three times a day as needed for cough. 18 capsule 02/08/2023 Active Comment on above: Take 1 capsule by mo [facility] three times daily as needed for cough. Take 1 capsule by mo [facility] three times a day as needed for cough. Breo Ellipta 200 mcg-25 mcg/inh inhalation powder (5 sources) Start: 2023 take 1 dose by inhalation once daily Breo Ellipta 200 mcg-25 mcg/inh inhalation powder Dose = 1 puff(s), Inhalation, Daily, # 1 EA, 0 Refill(s) Start Date: 12/13/23 Status: Ordered calcium carbonate 625 mg / cholecalciferol 125 unt oral tablet (16 sources) Vitamin D Start: 2016 take 1 tablet by mouth once daily calcium-cholecalc iferol, D3, (OSCAL+D 250) 250-125 mg-unit per tablet Indications: Annual physical exam Take 1 tablet by mouth once daily. 0 12/15/2016 Active Comment on above: Take 1 tablet by [facility] once daily. Calcium with Magnesium, Vitamins D and K oral tablet (5 sources) Start: 2023 take 1 tablet by mouth twice daily Calcium with Magnesium, Vitamins D and K oral tablet Dose = 2 tab(s), Oral, BID, # 360 tab(s), 0 Refill(s) Start Date: 12/13/23 Status: Ordered Uszftrh-Tryz2-Jxphkgm Fumarate 600-125-18 mg-unit-mg tablet (1 source) Start: 2021 Bkgqxdh-Srtf7-Mfz cynthia Fumarate 600-125-18 mg-unit-mg tablet Active 1 {tbl} PO DAILY May 05, 2022 1:00am cephalexin 500 mg oral capsule (1 source) Cephalosporin Antibacterial Start: 2022 End: 2022 take 1 capsule by mouth four times daily cephALEXin (KEFLEX) 500 mg capsule Indications: Recurrent UTI (urinary tract infection) Take 1 capsule by mouth four times daily for 10 days. 40 capsule 0 07/08/2022 07/18/2022 Active Comment on above: Take 1 capsule by [facility] four times daily for 10 days. cholecalciferol 0.025 mg oral capsule (9 sources) Vitamin D Start: 2022 Cholecalciferol, Vitamin D3, 25 mcg (1,000 unit) cap Take by mouth. 11/05/2022 Active Comment on above: Take by mouth. chondroitin sulfates 400 mg / glucosamine hydrochloride 500 mg / methylsulfonylmethane 83 mg oral tablet (5 sources) Start: 2023 take 3 tablets by mouth once daily at mealtime chondroitin/gluco samine/methylsulf onylmethane 400 mg-500 mg-83 mg oral tablet 3 tab, Oral, Daily, with food, # 150 tab(s), 0 Refill(s) Start Date: 12/13/23 Status: Ordered COMPOUNDED PRESCRIPTION (16 sources) Start: 2016 COMPOUNDED PRESCRIPTION Indications: Annual physical exam Takes Replenex 3 pills daily 0 12/15/2016 Active Comment on above: Takes Replenex 3 pil ls daily 30 actuat fluticasone furoate 0.2 mg/actuat dry powder inhaler (10 sources) Corticosteroid Start: 2024 take 1 puff(s) by mouth once daily ARNUITY ELLIPTA 200 mcg/actuation inhaler ONE PUFF DAILY FOLLOWED BY [facility] 08/02/2024 Active Start: 09-23-2020 End: 02-08-2023 take 1 puff(s) by mouth once daily ARNUITY ELLIPTA 200 mcg/actuation 1 PUFF DAILY WITH GOOD [facility]AL [facility] 09/23/2020 02/08/2023 Discontinued Comment on above: 1 PUFF DAILY WITH GO OD ORAL CARE folic acid 1 mg / vitamin b12 0.5 mg oral tablet (9 sources) Vitamin B12 Start: 11-05-2022 Vitamin W07-Odjdx Acid 0.5-1 mg tab Take by mouth. 11/05/2022 Active Start: 11-05-2022 Vitamin B12-Fo lic Acid 0.5-1 mg tablet Active 1 {tbl} PO DAILY November 05, 2022 12:00am Start: 11-05-2022 take 1 tablet by rina th once daily Vitamin O23-Zkmot Acid Active 1 TABLET PO DAILY November 05, 2022 12:00am Comment on above: Take by mouth. fumarate (1 source) Start: 05-05-2022 take 1 tablet by mouth once daily Qarbpfj-Mztr9-Xjzcmgj Fumarate Active 1 TABLET PO DAILY May 05, 2022 1:00am glucosamine sulfate 500 mg oral tablet (2 sources) Start: 05-05-2022 take 1 tablet by mouth once daily Glucosamine Sulfate (Glucosamine) 500 mg tablet Active 500 mg PO DAILY May 05, 2022 1:00am administer with a meal lactobacillus comb no.10 (PROBIOTIC) 20 billion cell cap (7 sources) Start: 07-09-2019 lactobacillus comb no.10 (PROBIOTIC) 20 billion cell cap 07/09/2019 Active Start: 07-09-2019 lactobacillus comb no.10 (PROBIOTIC) 20 billion cell cap 24 hr loratadine 10 mg / pseudoephedrine sulfate 240 mg extended release oral tablet (20 sources) alpha-Adrenergic Agonist Start: 03-28-2024 take 1 tablet by mouth once daily Claritin-D 24 Hour oral tablet, extended release Dose = 1 tab(s), Oral, Daily, # 7 tab(s), 0 Refill(s) Start Date: 03/28/24 Status: Ordered Start: 12-13-2023 take 1 tablet by rina th every twelve hours as needed for congestion Claritin-D 12 Hour oral tablet, extended release tab(s), Oral, q12h, PRN as needed for congestion, 0 Refill(s) Start Date: 12/13/23 Status: Ordered Start: 11-05-2022 take 1 tablet by rina th every twenty-four hours Loratadine-Pseudoephedrine (Claritin-D 24 Hour) 10-240 mg tablet extended release 24 hr Active 1 {tbl} PO DAILY November 05, 2022 12:00am Start: 11-05-2022 take 1 tablet by rina th once daily, then take 1 tablet by mouth every twenty-four hours Loratadine-Pseudoephedrine (Claritin-D 24 Hour) 10-240 mg tablet extended release 24 hr Active 1 TABLET PO DAILY November 05, 2022 12:00am Start: 05-27-2018 take 1 tablet by mouth once da monet loratadine-pseudoephedrine ER (CLARITIN-D 12 HOUR) 5-120 mg per tablet Indications: Sinusitis, unspecified chronicity, unspecified location Take 1 tablet by mouth once daily. 05/27/2018 Active Comment on above: Take 1 tablet by rina th once daily. Misc Medication (2 sources) Start: 03-28-20 Misc Medication Oral, qDay, 0 Refill(s), 52.8 Start Date: 03/28/24 Status: Ordered montelukast 10 mg oral tablet (20 sources) Leukotriene Receptor Antagonist Start: 03-04-20 take 1 tablet by mouth once daily montelukast (SINGULAIR) 10 mg tablet Take 10 mg by mouth once daily. 03/04/2022 Active Comment on above: Take 10 mg by mouth once daily. Multivitamin preparation (1 source) Start: 05-05-20 take 1 tablet by mouth once daily Multivitamin Active 1 TABLET PO DAILY May 05, 2022 1:00am Multivitamin tablet (1 source) Start: 05-05-20 Multivitamin tablet Active 1 {tbl} PO DAILY May 05, 2022 1:00am multivitamins(DAILY MULTIVITAMIN TAB) (16 sources) Start: 05-09-20 multivitamins(DAILY MULTIVITAMIN TAB) Take one(1) tablet daily. 0 05/09/2008 Active Comment on above: Take one(1) tablet d aily. nitrofurantoin, macrocrystals 25 mg / nitrofurantoin, monohydrate 75 mg oral capsule (2 sources) Nitrofuran Antibacterial Start: 08-29-19 End: 09-05-19 take 1 capsule by mouth twice daily nitrofurantoin monohydrate and macrocrystal (MACROBID) 100 mg capsule Indications: Dysuria Take 1 capsule by mouth two times a day for 7 days. 14 capsule 08/28/2024 09/04/2024 Active Start: 06-26-2022 End: 07-01-2022 take 1 capsule by mouth twice daily nitrofurantoin monohydrate and macrocrystal (MACROBID) 100 mg capsule Indications: UTI symptoms Take 1 capsule by mouth twice daily for 5 days. 10 capsule 0 06/26/2022 07/01/2022 Active Comment on above: Take 1 capsule by mo [facility] twice daily for 5 days. pantoprazole 40 mg delayed release oral tablet (20 sources) Proton Pump Inhibitor Start: 12-13-2023 End: 06-10-2024 pantoprazole 40 mg oral enteric coated tablet Dose : 40 mg = 1 tab(s), Oral, BID, # 180 tab(s), 1 Refill(s), Pharmacy: [facility]/pharmacy #[id number], 165, cm, 12/13/23 13:07:00 EDT, Height, kg, 12/13/23 13:07:00 EDT, Dosing Weight Start Date: 12/13/23 Stop Date: 06/10/24 Status: Ordered Start: 05-05-2022 take 1 tablet by [facility] once daily Pantoprazole (Protonix) 20 mg tablet,delayed release (DR/EC) Active 20 mg PO DAILY May 05, 2022 1:00am pantoprazole sod ium (PROTONIX ORAL) Take by mouth. Active pantoprazole sod ium (PROTONIX ORAL) Take by mouth. 0 Active Comment on above: Take by mouth. predniSONE 10 mg oral tablet (6 sources) Start: 11-15-2023 End: 11-24-2023 predniSONE (DELTASONE) 10 mg tablet Indications: Dermatitis due to plants, including poison isis, sumac, and oak Take 4 tabs daily for 3 days, then 2 tabs daily for 3 days, then 1 tab daily for 3 days with food. 21 tablet 0 11/15/2023 11/24/2023 Active Start: 03-11-2022 End: 02-08-2023 predniSONE (DELTASONE) 10 mg tablet TAKE 4 TABLETS BY MOUTH FOR 4 DAYS, TAKE 3 TABLETS FOR 4 DAYS, TAKE 2 TABLETS FOR 4 DAYS, then TAKE 1 TABLET BY MOUTH FOR 4 DAYS. 0 03/11/2022 02/08/2023 Discontinued Start: 10-15-2021 End: 10-27-2021 predniSONE (DELTASONE) 10 mg tablet Take 6 tabs for 3 days, then 4 tabs for 3 days, then 2 tabs for 3 days then 1 tab for 3 days with food. 39 tablet 0 10/15/2021 10/27/2021 Active Comment on above: Take 6 tabs for 3 da ys, then 4 tabs for 3 days, then 2 tabs for 3 days then 1 tab for 3 days with food. TAKE 4 TABLETS BY MO UTH FOR 4 DAYS, TAKE 3 TABLETS FOR 4 DAYS, TAKE 2 TABLETS FOR 4 DAYS, then TAKE 1 TABLET BY MOUTH FOR 4 DAYS. Probiotic (5 sources) Start: Probiotic 0 Refill(s) Start Date: 12/13/23 Status: Ordered saccharomyces boulardii 250 mg oral capsule (2 sources) Start: take 1 capsule by mouth once daily Saccharomyces Boulardii (Digest Probiotic (S.Boulardii)) 250 mg capsule Active 5000 NMA PO DAILY May 05, 2022 1:00am tamsulosin hydrochloride 0.4 mg oral capsule (1 source) alpha-Adrenergic Thao Start: Flomax 0.4 mg oral capsule Dose : 0.4 mg = 1 cap(s), Oral, qDay, # 30 cap(s), 0 Refill(s), Pharmacy: [facility]/pharmacy #[id number], 166.4, cm, 03/28/24 10:58:00 EST, Height, kg, 03/28/24 10:58:00 EST, Dosing Weight Start Date: 04/17/24 Status: Ordered Therapeutic Multivitamins with Minerals, Folic Acid, and Essential Fatty Acids oral capsule (5 sources) Start: take 1 capsule by mouth once daily at mealtime Therapeutic Multivitamins with Minerals, Folic Acid, and Essential Fatty Acids oral capsule Dose = 1 cap(s), Oral, qDay, with plenty of water. Take with food., # 60 cap(s), 0 Refill(s) Start Date: 12/13/23 Status: Ordered triamcinolone acetonide 0.055 mg/actuat metered dose nasal spray (19 sources) Corticosteroid Start: Nasacort Allergy 24HR 55 mcg/inh nasal spray 110 mcg Dose = 2 spray(s), Nostril, each, qDay, # 16.9 mL, 0 Refill(s) Start Date: 12/13/23 Status: Ordered Start: 11-15-2023 triamcinolone (KENALOG) 0.025 % cream Indications: Dermatitis due to plants, including poison isis, sumac, and oak Apply 1 application to affected area two times a day. 30 g 11/15/2023 Active Start: 11-05-2022 Triamcinolone Acetonide (Nasacort Allergy) 55 mcg aerosol,spray Active 1 NMA INTRANASAL DAILY November 05, 2022 12:00am administer into each nostril Start: 11-05-2022 take 1 spray(s) nasa l route once daily Triamcinolone Acetonide (Nasacort Allergy) 55 mcg aerosol,spray Active 1 SPRAY INTRANASAL DAILY November 05, 2022 12:00am administer into each nostril triamcinolone ac etonide (NASACORT ALLERGY NASAL) Use in the nose. Active triamcinolone ac etonide (NASACORT ALLERGY NASAL) Use in the nose. 0 Active Comment on above: Use in the nose. Vitamin B Complex 100 (5 sources) Start: 12-13-2023 Vitamin B Comp vaishnavi 100 0 Refill(s) Start Date: 12/13/23 Status: Ordered Vitamin D3 50 mcg (2000 intl units) oral capsule (5 sources) Start: 12-13-2023 Vitamin D3 50 mcg (2000 intl units) oral capsule Dose : 50 mcg = 1 cap(s), Oral, qDay, # 60 cap(s), 0 Refill(s) Start Date: 12/13/23 Status: Ordered Completed/Discontinued Medications Medication Drug Class(es) Dates Sig (Normalized) Sig (Original) amylase 313593 unt / lipase 50373 unt / protease [id number] unt delayed release oral capsule (8 sources) Start: 06-24-2022 End: 08-28-2024 CREON 36,000-114,000- 180,000 unit delayed release capsule 06/24/2022 08/28/2024 Discontinued B infantis/B ani/B tanner/B bifid (PROBIOTIC 4X ORAL) (15 sources) End: 08-28-2024 B infantis/B ani/B tanner/B bifid (PROBIOTIC 4X ORAL) Take by mouth. 08/28/2024 Discontinued B infantis/B ani /B tanner/B bifid (PROBIOTIC 4X ORAL) Take by mouth. Active B infantis/B ani /B tanner/B bifid (PROBIOTIC 4X ORAL) Take by mouth. 0 Active Comment on above: Take by mouth. doxycycline monohydrate 100 mg oral tablet (1 source) Tetracycline-clas s Drug Start: 03-19-2022 End: 03-19-2022 take 1 tablet by mouth twice daily doxycycline monohydrate 100 mg tablet Take 1 tablet by mouth twice daily for 5 days. 10 tablet 0 03/19/2022 03/19/2022 Discontinued Comment on above: Take 1 tablet by rina twice daily for 5 days. 30 actuat fluticasone furoate 0.2 mg/actuat / vilanterol 0.025 mg/actuat dry powder inhaler (18 sources) Corticosteroid, beta2-Adrenergic Agonist Start: 05-05-2022 End: 10-05-2024 Fluticasone Furoate-Vilanterol (Breo Ellipta) 200-25 mcg/dose blister with device Discontinued 1 NMA INHALATION DAILY May 05, 2022 1:00am October 05, 2024 7:33am Start: 05-05-2022 Fluticasone Fu roate-Vilanterol (Breo Ellipta) 200-25 mcg/dose blister with device Active 1 INH INHALATION DAILY May 05, 2022 1:00am Comment on above: Inhale 1 Inhalation as instructed once daily. Taking 100 instead of 200 sulfamethoxazole 800 mg / trimethoprim 160 mg oral tablet (1 source) Dihydrofolate Reductase Inhibitor Antibacterial, Sulfonamide Antimicrobial Start: 2 End: 2 take 1 tablet by mouth twice daily sulfamethoxazol e-trimethoprim (BACTRIM DS) 800-160 mg per tablet Indications: Dysuria Take 1 tablet by mouth twice daily for 5 days. 10 tablet 05/20/2021 05/25/2021 Problems Active Problems Problem Classification Problem Date Documented Date Episodic/Chronic Abdominal hernia (5 sources) Hernia of anterior abdominal wall 12-13-2023 Episodic Allergic reactions (2 sources) Contact dermatitis due to plants; Translations: [Unspecified contact dermatitis due to plants, except food] Episodic Asthma (20 sources) Mild intermittent asthma; Translations: [Mild intermittent asthma, uncomplicated] Onset: 5 05-05-2021 Chronic Cancer of breast (17 sources) Malignant neoplasm of female breast; Translations: [Malignant neoplasm of unspecified site of unspecified female breast] Onset: 2 05-05-2021 Chronic Cancer of breast (8 sources) History of malignant neoplasm of breast; Translations: [Personal history of malignant neoplasm of breast] 07-09-2022 Episodic Comment on above: ductal carcinoma, s/ p bilateral masectomies 2001, 2003; no chemo/radiation/tamoxifen Disorders of teeth and jaw (5 sources) Temporomandibular joint disorder 12-13-2023 Episodic Esophageal disorders (10 sources) Gastroesophageal reflux disease without esophagitis; Translations: [Laryngopharyngeal reflux] 12-13-2023 Chronic Genitourinary symptoms and ill-defined conditions (7 sources) Urinary symptoms ; Translations: [Unspecified symptoms and signs involving the genitourinary system] Onset: 4 Episodic Heart valve disorders (3 sources) Mitral valve regurgitation 02-01-2024 Chronic Menopausal disorders (18 sources) Atrophic vaginitis; Translations: [Postmenopausal atrophic vaginitis] Onset: 4 08-01-2013 Chronic Nutritional deficiencies (1 source) Vitamin D deficiency, unspecified; Translations: [Avitaminosis D] Onset: 3 Chronic Osteoarthritis (5 sources) Osteoarthritis 12-13-2023 Chronic Osteoporosis (6 sources) Age-related osteoporosis without current pathological fracture; Translations: [Osteoporosis] Onset: 3 12-13-2023 Chronic Other bone disease and musculoskeletal deformities (2 sources) Osteopenia; Translations: [Other specified disorders of bone density and structure, unspecified site] 07-09-2022 Episodic Other circulatory disease (2 sources) H/O: heart disorder 12-13-2023 Episodic Other female genital disorders (1 source) Disorder of skin of vulva; Translations: [Other specified noninflammatory disorders of vulva and perineum] Episodic Other inflammatory condition of skin (1 source) Pruritus of vulva; Translations: [Pruritus vulvae] Episodic Other lower respiratory disease (9 sources) Chronic cough; Translations: [Chronic cough] Onset: 5 07-09-2022 Episodic Other lower respiratory disease (5 sources) Orthopnea 12-13-2023 Episodic Other nutritional; endocrine; and metabolic disorders (5 sources) Body mass index less than 20 12-13-2023 Episodic Other screening for suspected conditions (not mental disorders or infectious disease) (18 sources) Patient encounter status; Translations: [Encounter for screening for osteoporosis] Onset: 2 Resolved: 4 Episodic Other upper respiratory disease (5 sources) Seasonal allergy 12-13-2023 Chronic Other upper respiratory infections (2 sources) Acute upper respiratory infection; Translations: [Acute upper respiratory infection, unspecified] Episodic Residual codes; unclassified (2 sources) Postmenopausal state; Translations: [Asymptomatic menopausal state] Episodic Residual codes; unclassified (5 sources) Screening due 12-13-2023 Episodic Screening and history of mental health and substance abuse codes (5 sources) Tobacco use and exposure - finding 12-13-2023 Chronic Secondary malignancies (1 source) Secondary and unspecified malignant neoplasm of axilla and upper limb lymph nodes; Translations: [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) (HCC)] Onset: 3 Chronic Unclassified (5 sources) Patient encounter status 12-13-2023 Viral infection (2 sources) Viral disease; Translations: [Viral infection, unspecified] Episodic Past or Other Problems Problem Classification Problem Date Documented Da te Episodic/Chronic Anal and rectal conditions (20 sources) Rectal prolapse; Translations: [Rectal prolapse] Onset: 0 11-28-2019 Episodic Fracture of upper limb (20 sources) Closed fracture of distal end of right radius; Translations: [Unspecified fracture of the lower end of right radius, initial encounter for closed fracture] Onset: 8 01-27-2018 Episodic Intestinal obstruction without hernia (16 sources) Obstructive defecation syndrome; Translations: [Fecal impaction] Onset: 0 12-11-2019 Episodic Other gastrointestinal disorders (16 sources) History of gastroesophageal reflux disease; Translations: [Personal history of other diseases of the digestive system] Onset: 4 05-05-2021 Episodic Other gastrointestinal disorders (16 sources) Irregular bowel habits; Translations: [Other specified symptoms and signs involving the digestive system and abdomen] Onset: 0 11-28-2019 Episodic Urinary tract infections (17 sources) Urinary tract infectious disease; Translations: [Urinary tract infection, site not specified] Onset: 0 11-28-2019 Episodic Results Test Name Value Interpretation Reference Range Facility MR/[place]enn 11-30-2024 MR/[facility] Medical Records Department [address] [place] [address] PAT - Anesthesia 11/30/241953 MR#: [id number] Acct: [id number] Name: IZZY ROSENTHAL Rep #: [id number] : 1955 69 From: Franc Yeager MD PCP: Dr. Juan Knox, DO Status:PRE SDC Y Race: C Location: EN Pre-Assessment Diagnosis/Proposed Procedure Planned Operative Procedure(s): COLONOSCOPY Anesthesia History Anesthesia History - conveyor monitor: Anesthesia History - conveyor monitor Hx Hospitalization No 11/30/24 15:20 Any Problems With Anesthesia No 11/30/24 15:20 Cholinesterase deficiency No 11/30/24 15:20 You/Your Family Experience No 11/30/24 15:20 fever (hyperthermia) with Relationship Recent Exposure to Contagious No 11/11/22 07:44 Disease Does patient have nerve No 11/30/24 15:20 stimulator Patient instructed to have device shut off --Does patient have Pacemaker or ICD? When Was Last Pacemaker Check QUESTION #4 FULL TEXT: You/Your Family Experience fever (hyperthermia) with Anesthesia Last Oral Intake Last Oral intake: Last Oral Intake NPO since Meds taken in AM with sips of water? Meds patient instructed to take am of surgery PONV PONV - conveyor monitor: PONV - conveyor monitor Female Yes 11/30/24 15:20 HX of Motion Sickness Yes 11/30/24 15:20 HX of N/V After Surgery No 11/30/24 15:20 Non-Smoker Yes 11/30/24 15:20 Duration of Surgery greater No 11/30/24 15:20 than 60 minutes Number of Risk Factors 3 11/30/24 15:20 PONV Score Moderate Risk 11/30/24 15:20 Height Weight Height Weight: Anesthesia: Height Weight Height 5 ft 5 in 11/11/22 07:44 Respiratory Assessment Respiratory Assessment - conveyor monitor: Respiratory Tract Infection Hx - conveyor monitor Hx Respiratory Tract Infection No 11/30/24 15:20 STOP Sleep Apnea STOP Sleep Apnea - conveyor monitor: STOP Sleep Apnea - conveyor monitor Hx Hypertension No 11/30/24 15:20 Hx Sleep Apnea No 11/30/24 15:20 CPAP BIPAP Do you snore loudly (louder No 11/30/24 15:20 than talking or can be heard Do you often feel tired/ No 11/30/24 15:20 fatigued/ sleepy during daytime? Has anyone observed you stop No 11/30/24 15:20 breathing during sleep? STOP Results Negative 11/30/24 15:20 QUESTION #5 FULL TEXT : Do you snore loudly (louder than talking or can be heard through closed doors)? 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 Specify any problems Hx of Preganancy in last 3 No 11/30/24 15:20 Months Nurse Filling Out Transfusion WALKER 11/30/24 15:20 Questions: Date: 11/30/24 11/30/24 15:20 Time: 15:21 11/30/24 15:20 Patient unable to answer at this time (ie. confused, unrespo /Reproduction History /Reproductive History - conveyor monitor: /Reproductive Hx- conveyor monitor Hx Now No 11/30/24 15:20 Gestational Age (in weeks): EDC: Hx Hx Para Hx Section SAB No 11/30/24 15:20 PFSH Medical History (Updated 11/30/24 @ 15:29 by Brooke Kirkland) Cancer Easy bruising History of hiatal hernia Asthma History of echocardiogram History of mitral valve prolapse Wears hearing aid Wears contact lenses Wears glasses Post-menopausal Anemia Dietary restriction History of ulceration Rectal prolapse Non-smoker Hx of fracture of wrist HX: breast cancer Osteopenia Chronic cough GERD (gastroesophageal reflux disease) Mild persistent asthma Allergic rhinitis Home Medications ???Medication ???Instructions ???Recorded ???Last Taken ???Type Saccharomyces boulardii 250 mg 5,000 mmu cells PO DAILY 05/05/22 Unknown History capsule (Digest Probiotic (S.boulardii)) albuterol sulfate 90 mcg/actuation 1 inh inhalation ONCE PRN Unknown History aerosol inhaler (ProAir HFA) shortness of breath or wheezing azelastine 137 mcg (0.1 %) nasal 1 spray intranasal BID 05/05/22 Un known History spray (more content not included)... Normal [facility] Gastroenterology Visit Repor ton 10-05-2024 Gastroenterology Visit Report [facility] Gastroenterology [address] [place] [address] OFFICE VISIT Date of Service: 10/05/24 MR#: [id number] Acct: [id number] Name: IZZY ROSENTHAL Rep #: [id number] : 1955 Provider: BOBBY Burnett Age/Sex: 69/F Location: [facility] Status: Signed Intake Vital Signs 11/11/22 07:44 Height 5 ft 5 in Intake Visit Reasons: Pre colon Chief Complaint: chronic cough Allergies erythromycin base Adverse Reaction (Mild, Verified 11/11/22 07:47) Upset Stomach tomato Adverse Reaction (Mild, Verified 11/11/22 07:31) Upset Stomach potato Adverse Reaction (Verified 11/11/22 07:31) Upset Stomach Medications ???Medication ???Instructions ???Recorded ???Confirmed ???Type Saccharomyces boulardii 250 mg 5,000 mmu cells PO DAILY 05/05/22 11/27/22 History capsule (Digest Probiotic (S.boulardii)) albuterol sulfate 90 mcg/actuation 1 inh inhalation ONCE 05/05/22 0 11/27/22 History aerosol inhaler (ProAir HFA) azelastine 137 mcg (0.1 %) nasal 1 spray intranasal BID 05/05/22 History spray calcium-vit D3-ferrous fumarate 1 tab PO DAILY 05/05/22 11/27/22 H istory 600 mg-125 unit-18 mg tablet glucosamine sulfate 500 mg tablet 500 mg PO DAILY 05/05/22 11/27/22 History (Glucosamine) montelukast 10 mg tablet 10 mg PO DAILY 05/05/22 11/27/22 H istory (Singulair) multivitamin 1 tab PO DAILY 05/05/22 11/27/22 H istory pantoprazole 20 mg tablet,delayed 20 mg PO DAILY 05/05/22 10/05/24 History release (Protonix) cholecalciferol (vitamin D3) 25 25 mcg PO DAILY 11/05/22 11/27/22 History mcg (1,000 unit) capsule (Vitamin D3) loratadine-pseudoephedrine ER 10 1 tab PO DAILY 11/05/22 11/27/22 H istory mg-240 mg tablet,extended [id number] (Claritin-D 24 Hour) triamcinolone acetonide 55 mcg 1 spray intranasal DAILY 11/05/22 11/27/22 History nasal spray aerosol (Nasacort Allergy) vitamin B12 0.5 mg-folic acid 1 mg 1 tab PO DAILY 11/05/22 11/27/22 History tablet Have you fallen in the past year?: No Nurse's Note: OV 10/05/24 Pt here for a f/u and reports indigestion. Pt taking pantoprazole daily. Denies n/v/d/c and bloody stools. PFSH Medical History Allergic rhinitis Anemia Chronic cough Dietary restriction GERD (gastroesophageal reflux disease) History of ulceration Hx of fracture of wrist HX: breast cancer Mild persistent asthma Non-smoker Osteopenia Post-menopausal Rectal prolapse Wears contact lenses Wears glasses Wears hearing aid Surgical History H/O bilateral mastectomy History of esophagogastroduodenoscopy (EGD) Hx of colonoscopy Social History Smoking Status: Never smoker HPI HPI Chief Complaint: chronic cough Details: IZZY ROSENTHAL, is a 69 F who presents to the office today for f/u. BGI established in 2022 with chronic cough. Pt previously seeing GI who treated symptoms with amitriptyline which was ineffective. EGD 11.11.22 small hiatal hernia; Treviño placed Treviño total DeMeester 6.7. Day 1 8.1 with upright position>supine. Day 2 total 1.6 with upright>supine Last OV 11.27.22 Continues chronic cough. On PPI Biochemical work up 11.27.22; CBC, CMP, Copper, immunologic all wnl OV 5.29.25 Pt here today to be scheduled for screening colonoscopy. last colonoscopy was 7 years ago. She continues with dry cough. She is taking Protonix however the only thing that has helped is cough drops. It is not worse with eating and she does not have difficulty with swallowing. ROS Const Constitutional: No fatigue, fever(s) or weight change ENT ENT: No difficulty swallowing Gastro GI: Positive for bloating and excessive flatus; No abdominal pain, belching, change in bowel habits, change in stool character, coffee ground emesis, constipation, cramping, diarrhea, heartburn, difficulty swallowing, feeling full early, inc ontinent of stools, Vomiting blood/hematemesis, Blood in stool, loose stools, Black,tarry stools, nausea/dyspepsia, pain with swallowing, vomiting or other Musc Musculoskeletal: No joint pain Skin Skin: No yellowing of the eye or itchy eyes Psych Psychiatric: No anxiety and No depression Endo Endocrine: No fatigue or weight change Aller/Imm Allergy/Immunologic: No itchy eyes Micheal/Lymp Hematologic/Lymphatic: Positive for easy bruising; No easy bleeding Exam Const General: healthy appearing and comfortable Nutritional Appearance: thin Chest Chest palpation inspection: normal inspection of the chest Resp Effort Inspection: normal respiratory effort Auscultation: Bilateral: Clear to Auscultation Cardio R (more content not included)... Normal [facility] BD BONE DENSITY DEXA AXIAL S [facility] 10-03-2024 BD BONE DENSITY DEXA AXIAL S[place]TON ORIGINAL EXAMINATION: BONE DENSITOMETRY 09/29/2024 2:38 pm TECHNIQUE: A bone density dual x-ray absorptiometry (DEXA) scan was performed of the axial (e.g. hips, spine) and/or appendicular (e.g. radius) skeleton as appropriate. COMPARISON: None. HISTORY: Reason for Exam: Osteoporosis Screening FINDINGS: BMD (g/cm2) Lumbar Spine: 0.759. T Score Lumbar Spine: -2.6 BMD (g/cm2) Left Femoral Neck: 0.614. T Score Left Femoral Neck: -2.1 BMD (g/cm2) Left Hip: 0.694. T Score Left Hip: -2.0 FRAX: 10 year fracture risk assessment Major osteoporotic fracture: 10% Hip fracture: 2% The BHOF f/k/a NOF recommends that FDA-approved medical therapies be considered in post-menopausal women and men age >/= 50 years with a: * Hip or vertebral fracture, or * T-score of /= 20% for major osteoporotic fractures or * >/= 3% for hip fractures All treatment decisions require clinical judgement and consideration of individual patient factors, including patient preferences, comorbidities, previous drug use, risk factors not captured in the FRAX registered model (e.g., frailty, falls, vitamin D deficiency, increased bone turnover, interval significant decline in bone density) and possible under- or over-estimation of fracture risk by FRAX. IMPRESSION: Osteoporosis. I have personally reviewed the images of this examination and agree with the resident's findings and interpretation. Interpreted by: Cyril Gramajo MD Preliminary Report By: Miguel Jimenez Electronically signed By Cyril Gramajo MD Dictated Date: 10/03/2024 8:44:08 AM Prelim Date: 10/03/2024 5:27:29 PM Sign Date: 10/03/2024 5:27:29 PM Ordering Provider: JUAN Perez [facility] Bacteria Ur Culton Bacteria identified Cx Nom (U) ORGANISM ID: 1 50,000-<100,000 CFU/ml Escherichia coli ORGANISM ID: 1 (ESCHERICHIA COLI) ------ ANTIBIOTIC INTERPRETATION [place]IE STATUS REFERENCE RANGE ------ Ampicillin S <=2 F Susceptible <=8 , Intermediate >8 , Resistant >16 Cefazolin S <=4 F Susceptible 0-16 , Intermediate <0 or >16 , Resistant >16 For uncomplicated urinary tract infections, cefazolin results can be used to predict susceptibility or resistance to cephalexin. Ceftriaxone S <=1 F Susceptible <=1 , Intermediate >1 , Resistant >=4 Cefepime S <=1 F Susceptible <=2 , Susceptible-Dose Dependent >2 , Resistant >=16 Ertapenem S <=0.5 F Susceptible <=0.5 , Intermediate >.5 , Resistant >1 Meropenem S <=0.25 F Susceptible <=1 , Intermediate >1 , Resistant >2 Ampicillin/Sulbact S <=2 F Susceptible <=8 , Intermediate >8 , Resistant >16 Piperacillin/Tazobac S <=4 F Susceptible <16 , Susceptible-Dose Dependent >=16 , Resistant >=32 Gentamicin S <=1 F Susceptible <=2 , Intermediate >2 , Resistant >=8 Tobramycin S <=1 F Susceptible <4 , Intermediate >=4 , Resistant >=8 Trimeth sulfameth S <=20 F Susceptible <=40 , Resistant >40 Ciprofloxacin S <=0.25 F Susceptible <0.5 , Intermediate >=.5 , Resistant >=1 Nitrofurantoin S <=16 F Susceptible <=32 , Intermediate >32 , Resistant >64 Abnormal [facility] Comment on above: Performed By: #### 6 30-4 #### [facility] CLIA [id number] [address] [place] [address] [place] Zaira 08-28-2024 YESENIA Office Visit (WALKWA ) IZZY ROSENTHAL ([id number]) 1955 [place] Date Time Provider Department 08/28/24 6:30 PM LETICIA HARPER During your visit today, we recorded the following information about you: Temperature Pulse Respiration Blood pressure 97 degrees 99/minute 16/minute 120/67 Weight 54.1 kg Leticia Harper APRN.[facility] 08/28/2024 6:52 PM Signed PATIENT NAME: Izzy Rosenthal DATE OF : 1955 TODAYS' DATE: 08/28/2024 Recording using ambient Exper[employer] software for draft documentation of the visit was discussed with the patient/authorized sales representative trainee; all questions welcomed and answered. Patient/authorized sales representative trainee agreed to proceed Subjective: The patient is a 69-year-old female with a history of frequent UTIs, presenting with dysuria and increased urinary frequency. History of Present Illness: Urinary Symptoms: - Onset midweek. - Dysuria and increased urinary frequency. - Increased fluid intake to flush it out, leading to more frequent urination. - Recent swimming and hot tub use. - Denies nausea, emesis, or fever. - History of frequent UTIs. Allergies: - Allergic to erythromycin. Review of Systems: Allergies: Allergies: Erythromycin Base GI Upset Comment:Severe abd pain. No diarrhea or emesis. Potato GI Upset [place] Oil GI Upset Tomato GI Upset Tuna Oil GI Upset Past Medical History: PAST MEDICAL HISTORY Diagnosis Date Chiu esophagus Ciro Coto MD. EGD. Elimination diet successful. Carcinoma in situ of breast Bilateral mastectomy 2001,2003 Gastric ulcer Rectal prolapse Unspecified asthma(493.90) Past Surgical History: PAST SURGICAL HISTORY Procedure Laterality Date COLONOSCOPY SCREENING 2018 5-7 year interval ESOPHAGOGASTRODUODENOSCOPY_* FL 12/20/2018 with biopsies MASTECTOMY,SIMPLE 01/10/2002 left simple mastectomy with sentinel lymph node bx. MASTECTOMY,SIMPLE 09/04/2003 right side REPAIR WRIST FRACTURE Right Family History: FAMILY HISTORY Problem Relation Age of Onset COPD Mother former smoker Graves Disease Mother other (Other) Father Stomach rotted out. COPD Father Breast Cancer Sister Allergies Brother Breast Cancer Maternal Grandmother 65 Asthma Maternal Grandmother Ovarian cancer Paternal cousin 65 Breast Cancer Paternal cousin 50's Tobacco History: Tobacco Use: Never Medications: Current Outpatient Medications Medication Sig Dispense Refill ARNUITY ELLIPTA 200 mcg/actuation inhaler ONE PUFF DAILY FOLLOWED BY [facility] albuterol HFA (PROVENTIL HFA, VENTOLIN HFA) 90 mcg/actuation inhaler Inhale as instructed. lactobacillus comb no.10 (PROBIOTIC) 20 billion cell cap loratadine-pseudoephedrine ER (CLARITIN-D 12 HOUR) 5-120 mg per tablet Take 1 tablet by mouth once daily. triamcinolone (KENALOG) 0.025 % cream Apply 1 application to affected area two times a day. 30 g 0 Vitamin [id number] Acid 0.5-1 mg tab Take by mouth. Cholecalciferol, Vitamin D3, 25 mcg (1,000 unit) cap Take by mouth. triamcinolone acetonide (NASACORT ALLERGY NASAL) Use in the nose. benzonatate (TESSALON PERLES) 100 mg capsule Take 1 capsule by mouth three times a day as needed for cough. 18 capsule 0 montelukast (SINGULAIR) 10 mg tablet Take 10 mg by mouth once daily. azelastine (ASTELIN) 0.1% nasal spray Use 1 [place] in each nostril twice daily. fluticasone-vilanterol (BREO ELLIPTA) 200-25 mcg/dose inhaler Inhale 1 Inhalation as instructed once daily. Taking 100 instead of 200 pantoprazole sodium (PROTONIX ORAL) Take by mouth. calcium-cholecalciferol, D3, (OSCAL+D 250) 250-125 mg-unit per tablet Take 1 tablet by mouth once daily. 0 COMPOUNDED PRESCRIPTION Takes Replenex 3 pills daily 0 multivitamins(DAILY MULTIVITAMIN TAB) Take one(1) tablet daily. 0 No current facility-administered medications for this visit. Vitals: BP 120/67 Pulse 99 Temp 36.1 ?C (97 ?F) Resp 16 Wt 54.1 kg (119 lb 2.5 oz) LMP 06/10/2006 SpO2 100% BMI 20.45 kg/m? Physical Exam: Physical Exam Vitals reviewed. Constitutional: General: She is not in acute distress. Appearance: She is not ill-appearing, toxic-appearing or diaphoretic. Pulmonary: Effort: Pulmonary effort is normal. Abdominal: Palpations: Abdomen is soft. Tenderness: There is no abdominal tenderness. There is no right CVA tenderness, left CVA tenderness, guarding or rebound. Neurological: Mental Status: She is alert. ASSESSMENT/PLAN: (R30.0) Dysuria (primary encounter diagnosis) Plan: nitrofurantoin monohydrate and macrocrystal (MACROBID) 100 mg capsule UA positive for leukocytes and blood. Will start macrobid and send culture. -Increase fluids. Focus on clears. -Decrease sugary drink intake. Minimize caffeine. -Wipe front to back. No tight clothing. No bubble baths. -Results will be released to [facility] unless there is a need f (more content not included)... Normal [facility] UA DIP, URINE (POC)on 2024 BILIRUBIN UA (POCT) Negative Negative [facility] CLARITY UA (POCT) Cloudy [facility] COLOR UA (POCT) Yellow [facility] GLUCOSE UA (POCT) Negative Negative mg/dL [facility] Hemoglobin Ql (U) Moderate Abnormal Negative [facility] Interpretation and review of laboratory results Abnormal [facility] KETONE UA (POCT) Negative Negative mg/dL [facility] LEUKOCYTES UA (POCT) Moderate Abnormal Negative [facility] NITRITE UA (POCT) Negative Negative [facility] PH UA (POCT) 6 4.5 - 8.0 [facility] Protein Ql (U) >=300 Abnormal Negative mg/dL [facility] SPECIFIC GRAVITY UA (POCT) >=1.030 1.005 - 1.030 [facility] UROBILINOGEN UA (POCT) 0.2 Normal E.U./dL [facility] Location:[facility] edical Office, [address] [place] [address], [address] [place] [address] POINT OF CARE [facility] XR ABDOMEN APon 04-19-2024 XR ABDOMEN AP ORIGINAL EXAMINATION: ONE SUPINE XRAY VIEW(S) OF THE ABDOMEN 04/17/2024 5:03 pm COMPARISON: None. HISTORY: ORDERING SYSTEM PROVIDED HISTORY: Reason for Exam: back pain, rule out kidney stone FINDINGS: The bowel gas pattern is nonobstructive. There is moderate fecal retention scattered throughout the colon. No dilated loops of intestine are present. There is no abnormal gas collection. No urinary tract stones are detected. There are no pathologic calcifications. Skeletal structures are unremarkable. IMPRESSION: Moderate fecal retention in the colon without evidence of intestinal obstruction. No urinary tract calculi detected. Interpreted by: Tomas Crawford MD Preliminary Report By: Tomas Crawford MD Electronically signed By Tomas Crawford MD Dictated Date: 04/19/2024 6:06:31 AM Prelim Date: 04/19/2024 6:07:53 AM Sign Date: 04/19/2024 6:07:53 AM Ordering Provider: JUAN Perez [facility] .Auto Diffon 04-17-2024 Basophil, Absolute 0.0 10 3/mcL Normal 0.0-0.2 [facility] Comment on above: Performed By: #### A [place], ADIFF, GFR, CBC, CMP #### [address] [address] Basophils/100 WBC (Bld) 0.4 % Normal 0.0-2.5 [facility] Comment on above: Performed By: #### A [place], ADIFF, GFR, CBC, CMP #### [address] [address] Eosinophil, Absolute 0.0 10 3/mcL Normal 0.0-0.7 [facility] Comment on above: Performed By: #### [place], ADIFF, GFR, CBC, CMP #### [address] [address] Eosinophils/100 WBC (Bld) 0.6 % Normal 0.0-7.0 [facility] Comment on above: Performed By: #### A [place], ADIFF, GFR, CBC, CMP #### [address] [address] Lymphocyte, Absolute 1.4 10 3/mcL Normal 0.9-4.3 [facility] Comment on above: Performed By: #### [place], ADIFF, GFR, CBC, CMP #### [address] [address] Lymphocytes/100 WBC (Bld) 21.1 % Normal 20.0-40.0 [facility] Comment on above: Performed By: #### [place], ADIFF, GFR, CBC, CMP #### [address] [address] Monocyte, Absolute 0.3 10 3/mcL Normal 0.1-1.4 [facility] Comment on above: Performed By: #### [place], ADIFF, GFR, CBC, CMP #### [address] [address] Monocytes/100 WBC (Bld) 5.3 % Normal 2.0-13.0 [facility] Comment on above: Performed By: #### [place], ADIFF, GFR, CBC, CMP #### [address] [address] Neutrophils/100 WBC (Bld) 72.6 % Normal 50.0-75.0 [facility] Comment on above: Performed By: #### [place], ADIFF, GFR, CBC, CMP #### [address] [address] .GFRon 04-17-2024 GFR 67 ml/min/1.73sqm Normal [facility] Comment on above: Result Comment: GFR Population mean for , Non- Americans Ages 20-29 = 116 mL/min/1.73 sq.m. Ages 30-39 = 107 mL/min/1.73 sq.m. Ages 40-49 = 99 mL/min/1.73 sq.m. Ages 50-59 = 93 mL/min/1.73 sq.m. Ages 60-69 = 85 mL/min/1.73 sq.m. Ages 70+ = 75 mL/min/1.73 sq.m. Chronic Kidney Disease: Less than 60 mL/min/1.73 square meters End Stage Renal Disease: Less than 15 mL/min/1.73 square meters Performed By: #### [place], ADIFF, GFR, CBC, CMP #### [address] [address] GFR Non- 55 ml/min/1.73sqm Normal [facility] Comment on above: Result Comment: GFR Population mean for , Non- Americans Ages 20-29 = 116 mL/min/1.73 sq.m. Ages 30-39 = 107 mL/min/1.73 sq.m. Ages 40-49 = 99 mL/min/1.73 sq.m. Ages 50-59 = 93 mL/min/1.73 sq.m. Ages 60-69 = 85 mL/min/1.73 sq.m. Ages 70+ = 75 mL/min/1.73 sq.m. Chronic Kidney Disease: Less than 60 mL/min/1.73 square meters End Stage Renal Disease: Less than 15 mL/min/1.73 square meters Performed By: #### A [place], ADIFF, GFR, CBC, CMP #### [place] [address] .NEUABSon 04-17-2024 Neutrophil, Absolute 4.8 10 3/mcL Normal 2.3-8.1 [facility] Comment on above: Performed By: #### [place], ADIFF, GFR, CBC, CMP #### [place] [address] .Urinalysis Microscopic (AO) on 04-17-2024 UA RBC 0-[address] [facility] Comment on above: Performed By: #### U A, UAMICAO #### [place] [address] UA Squam Epithelial 0-5 Abnormal None Seen [facility] Comment on above: Performed By: #### U A, UAMICAO #### [place] [address] UA WBC 0-[address] [facility] Comment on above: Performed By: #### U A, UAMICAO #### [place] [address] CBCon 04-17-2024 Erythrocyte distribution width (RBC) [Ratio] 13.7 % Normal 11.5-15.5 [facility] Comment on above: Performed By: #### A [place], ADIFF, GFR, CBC, CMP #### [place] [address] Hematocrit (Bld) [Volume fraction] 40.4 % Normal 34.0-46.0 [facility] Comment on above: Performed By: #### [place], ADIFF, GFR, CBC, CMP #### [address] [address] Hgb 13.7 G/dL Normal 12.0-16.0 [facility] Comment on above: Performed By: #### [place], ADIFF, GFR, CBC, CMP #### [place] [address] MCH (RBC) [Entitic mass] 31.9 pg Normal 27.0-33.0 [facility] Comment on above: Performed By: #### A [place], ADIFF, GFR, CBC, CMP #### [place] [address] MCHC 33.8 G/dL Normal 32.0-36.0 [facility] Comment on above: Performed By: #### [place], ADIFF, GFR, CBC, CMP #### [address] [address] MCV (RBC) [Entitic vol] 94.5 fL Normal 80.0-99.0 [facility] Comment on above: Performed By: #### [place], ADIFF, GFR, CBC, CMP #### [address] [address] Platelet 296 10 3/mcL Normal 150-450 [facility] Comment on above: Performed By: #### [place], ADIFF, GFR, CBC, CMP #### [address] [address] Platelet mean volume (Bld) [Entitic vol] 7.3 fL Normal 6.6-10.5 [facility] Comment on above: Performed By: #### [place], ADIFF, GFR, CBC, CMP #### [address] [address] RBC 4.27 10 6/mcL Normal 4.10-5.30 [facility] Comment on above: Performed By: #### [place], ADIFF, GFR, CBC, CMP #### [address] [address] WBC 6.5 10 3/mcL Normal 4.5-10.8 [facility] Comment on above: Performed By: #### [place], ADIFF, GFR, CBC, CMP #### [address] [address] CMPon 04-17-2024 Albumin Level 3.8 G/dL Normal 3.4-4.8 [facility] Comment on above: Performed By: #### [place], ADIFF, GFR, CBC, CMP #### [place] [address] Albumin/Globulin [Mass ratio] 1.3 {ratio} Normal 1.1-2.5 [facility] Comment on above: Performed By: #### A [place], ADIFF, GFR, CBC, CMP #### [place] [address] ALP [Catalytic activity/Vol] 93 U/L Normal 40-135 [facility] Comment on above: Performed By: #### A [place], ADIFF, GFR, CBC, CMP #### [place] [id number] ALT [Catalytic activity/Vol] 23 U/L Normal 14-59 [facility] Comment on above: Performed By: #### A [place], ADIFF, GFR, CBC, CMP #### [place] [id number] AST [Catalytic activity/Vol] 16 U/L Normal 10-40 [facility] Comment on above: Performed By: #### A [place], ADIFF, GFR, CBC, CMP #### [place] [address] Bili Total 0.4 mg/dL Normal 0.2-1.0 [facility] Comment on above: Result Comment: Use of this assay is not recommended for patients undergoing treatment with eltrombopag due to the potential for falsely elevated results. Performed By: #### [place], ADIFF, GFR, CBC, CMP #### [address] [address] BUN/Creatinine Ratio 17 ratio Normal 7-27 [facility] Comment on above: Performed By: #### [place], ADIFF, GFR, CBC, CMP #### [address] [address] Calcium [Mass/Vol] 9.9 mg/dL Normal 8.4-10.2 [facility] Comment on above: Performed By: #### [place], ADIFF, GFR, CBC, CMP #### [address] [address] Chloride [Moles/Vol] 103 mmol/L Normal 98-107 [facility] Comment on above: Performed By: #### [place], ADIFF, GFR, CBC, CMP #### [place] [address] CO2 [Moles/Vol] 29 mmol/L Normal 23-31 [facility] Comment on above: Performed By: #### [place], ADIFF, GFR, CBC, CMP #### [place] [address] Creatinine [Mass/Vol] 1.00 mg/dL Normal 0.55-1.02 [facility] Comment on above: Result Comment: Test ing performed on [employer] Dimension EXL analyzer using a modified kinetic Lynn technique. Performed By: #### [place], ADIFF, GFR, CBC, CMP #### [address] [address] Electrolyte Balance 9.0 mEq/L Normal 4.0-15.0 [facility] Comment on above: Performed By: #### [place], ADIFF, GFR, CBC, CMP #### [place] [address] Globulin 2.9 G/dL Normal [facility] Comment on above: Performed By: #### [place], ADIFF, GFR, CBC, CMP #### [place] [address] Glucose [Mass/Vol] 80 mg/dL Normal 80-115 [facility] Comment on above: Performed By: #### [place], ADIFF, GFR, CBC, CMP #### [address] [address] Potassium [Moles/Vol] 4.4 mmol/L Normal 3.5-5.1 [facility] Comment on above: Performed By: #### [place], ADIFF, GFR, CBC, CMP #### [address] [address] Sodium [Moles/Vol] 141 mmol/L Normal 136-145 [facility] Comment on above: Performed By: #### [place], ADIFF, GFR, CBC, CMP #### [address] [address] Total Protein 6.7 G/dL Normal 6.4-8.2 [facility] Comment on above: Performed By: #### [place], ADIFF, GFR, CBC, CMP #### [address] [address] Urea nitrogen [Mass/Vol] 17 mg/dL Normal 7-18 [facility] Comment on above: Performed By: #### [place], ADIFF, GFR, CBC, CMP #### [address] [address] LABORATORYOrdered By: Praful gregory on 04-17-2024 Appearance (U) Clear (04/17/24 4:54 PM) Normal Clear AO Auto Urine SS Bilirubin Ql (U) Negative (04/17/24 4:54 PM) Normal Negative AO Auto Urine SS Color (U) Yellow (04/17/24 4:54 PM) Normal AO Auto Urine SS Glucose Test strip (U) [Mass/Vol] Negative Normal Negative AO Auto Urine SS Hemoglobin Auto test strip (U) [Mass/Vol] Negative (04/17/24 4:54 PM) Normal Negative AO Auto Urine SS Ketones Ql (U) Negative Normal Negative AO Auto Urine SS UA Leuk Est Trace *ABN* (04/17/24 4:54 PM) Invalid Interpretation Code Negative AO Auto Urine SS UA Nitrite Negative (04/17/24 4:54 PM) Normal Negative AO Auto Urine SS UA pH 7.0 (04/17/24 4:54 PM) Normal 5.0 - 8.0 AO Auto Urine SS UA Protein Negative Normal Negative AO Auto Urine SS UA RBC 0-5 /HPF Invalid Interpretation Code None Seen AO Auto Urine SS UA Spec Grav 1.020 (04/17/24 4:54 PM) Normal 1.015-1.025 AO Auto Urine SS UA Specimen Type Clean Catch (04/17/24 4:54 PM) Normal AO Auto Urine SS UA Squam Epithelial 0-5 /HPF Invalid Interpretation Code None Seen AO Auto Urine SS UA Urobilinogen 0.2 E.U./dL Normal 0.2-1.0 AO Auto Urine SS WBC LM.HPF (Urine sed) [#/Area] 0-5 /HPF Invalid Interpretation Code None Seen AO Auto Urine SS LABORATORYOrdered By: SYSTEM SYSTEM on 04-17-2024 Albumin BCP dye [Mass/Vol] 3.8 G/dL Normal 3.4 - 4.8 G/dL AO ADM SS Albumin/Globulin [Mass ratio] 1.3 {ratio} Normal 1.1 - 2.5 ratio AO ADM SS ALP [Catalytic activity/Vol] 93 U/L Normal 40 - 135 U/L AO ADM SS ALT With P-5'-P [Catalytic activity/Vol] 23 U/L Normal 14 - 59 U/L AO ADM SS AST With P-5'-P [Catalytic activity/Vol] 16 U/L Normal 10 - 40 U/L AO ADM SS Basophils (Bld) [#/Vol] 0.0 103/mcL Normal 0.0 - 0.2 10^3/mcL AO Workflow SS Basophils/100 WBC (Bld) 0.4 % Normal 0.0 - 2.5 % AO Workflow SS Bilirubin [Mass/Vol] 0.4 mg/dL Normal 0.2 - 1.0 mg/dL AO ADM SS Comment on above: Interpretive Data: U se of this assay is not recommended for patients undergoing treatment with eltrombopag due to the potential for falsely elevated results. Calcium [Mass/Vol] 9.9 mg/dL Normal 8.4 - 10. 2 mg/dL AO ADM SS Chloride [Moles/Vol] 103 mmol/L Normal 98 - 107 mmol/L AO ADM SS CO2 [Moles/Vol] 29 mmol/L Normal 23 - 31 mmol/L AO ADM SS Creatinine [Mass/Vol] 1.00 mg/dL Normal 0.55 - 1.02 mg/dL AO ADM SS Comment on above: Interpretive Data: T esting performed on [employer] Dimension EXL analyzer using a modified kinetic Lynn technique. Electrolyte Balance 9.0 mEq/L Normal 4.0 - 15 .0 mEq/L AO ADM SS Eosinophil, Absolute 0.0 103/mcL Normal 0.0 - 0.7 10^3/mcL AO Workflow SS Eosinophils/100 WBC (Bld) 0.6 % Normal 0.0 - 7.0 % AO Workflow SS Erythrocyte distribution width (RBC) [Ratio] 13.7 % Normal 11.5 - 15.5 % AO Workflow SS GFR/1.73 sq M.predicted among blacks MDRD (S/P/Bld) [Vol rate/Area] 67 ml/min/1.73sqm Invalid Interpretation Code AO Chemistry S Comment on above: Interpretive Data: GFR Population mean for , Non- Americans Ages 20-29 = 116 mL/min/1.73 sq.m. Ages 30-39 = 107 mL/min/1.73 sq.m. Ages 40-49 = 99 mL/min/1.73 sq.m. Ages 50-59 = 93 mL/min/1.73 sq.m. Ages 60-69 = 85 mL/min/1.73 sq.m. Ages 70+ = 75 mL/min/1.73 sq.m. Chronic Kidney Disease: Less than 60 mL/min/1.73 square meters End Stage Renal Disease: Less than 15 mL/min/1.73 square meters GFR/1.73 sq M.predicted among non-blacks MDRD (S/P/Bld) [Vol rate/Area] 55 ml/min/1.73sqm Invalid Interpretation Code AO Chemistry S Comment on above: Interpretive Data: GFR Population mean for , Non- Americans Ages 20-29 = 116 mL/min/1.73 sq.m. Ages 30-39 = 107 mL/min/1.73 sq.m. Ages 40-49 = 99 mL/min/1.73 sq.m. Ages 50-59 = 93 mL/min/1.73 sq.m. Ages 60-69 = 85 mL/min/1.73 sq.m. Ages 70+ = 75 mL/min/1.73 sq.m. Chronic Kidney Disease: Less than 60 mL/min/1.73 square meters End Stage Renal Disease: Less than 15 mL/min/1.73 square meters Globulin 2.9 G/dL Invalid Interpretation Code AO ADM SS Glucose [Mass/Vol] 80 mg/dL Normal 80 - 115 mg/dL AO ADM SS Hematocrit (Bld) [Volume fraction] 40.4 % Normal 34.0 - 46.0 % AO Workflow SS Hemoglobin (Bld) [Mass/Vol] 13.7 G/dL Normal 12.0 - 16.0 G/dL AO Workflow SS Lymphocytes (Bld) [#/Vol] 1.4 103/mcL Normal 0.9 - 4.3 10^3/mcL AO Workflow SS Lymphocytes/100 WBC (Bld) 21.1 % Normal 20.0 - 40.0 % AO Workflow SS MCH (RBC) [Entitic mass] 31.9 pg Normal 27.0 - 33.0 pg AO Workflow SS MCHC 33.8 G/dL Normal 32.0 - 36.0 G/dL AO Workflow SS MCV (RBC) [Entitic vol] 94.5 fL Normal 80.0 - 99.0 fL AO Workflow SS Monocytes (Bld) [#/Vol] 0.3 103/mcL Normal 0.1 - 1.4 10^3/mcL AO Workflow SS Monocytes/100 WBC (Bld) 5.3 % Normal 2.0 - 13.0 % AO Workflow SS Neutrophils (Bld) [#/Vol] 4.8 103/mcL Normal 2.3 - 8.1 10^3/mcL AO Workflow SS Neutrophils/100 WBC (Bld) 72.6 % Normal 50.0 - 75.0 % AO Workflow SS Platelet mean volume (Bld) [Entitic vol] 7.3 fL Normal 6.6 - 10.5 fL AO Workflow SS Platelets (Bld) [#/Vol] 296 103/mcL Normal 150 - 450 10^3/mcL AO Workflow SS Potassium [Moles/Vol] 4.4 mmol/L Normal 3.5 - 5.1 mmol/L AO ADM SS Protein [Mass/Vol] 6.7 G/dL Normal 6.4 - 8.2 G/dL AO ADM SS RBC (Bld) [#/Vol] 4.27 106/mcL Normal 4.10 - 5.3 0 10^6/mcL AO Workflow SS Sodium [Moles/Vol] 141 mmol/L Normal 136 - 145 mmol/L AO ADM SS Urea nitrogen [Mass/Vol] 17 mg/dL Normal 7 - 18 mg/dL AO ADM SS Urea nitrogen/Creatinine [Mass ratio] 17 ratio Normal 7 - 27 ratio AO ADM SS WBC (Bld) [#/Vol] 6.5 103/mcL Normal 4.5 - 10.8 10^3/mcL AO Workflow SS UAon 04-17-2024 Color (U) Yellow Normal [facility] Comment on above: Performed By: #### U A, UAMICAO #### [place] [address] Glucose (U) [Mass/Vol] Negative Normal Negative [facility] Comment on above: Performed By: #### U A, UAMICAO #### [place] [address] Ketones Ql (U) Negative Normal Negative [facility] Comment on above: Performed By: #### U A, UAMICAO #### [place] [address] UA Appear Clear Normal Clear [facility] Comment on above: Performed By: #### U A, UAMICAO #### [place] [address] UA Blood Negative Normal Negative [facility] Comment on above: Performed By: #### U A, UAMICAO #### [place] [address] UA Leuk Est Trace Abnormal Negative [facility] Comment on above: Performed By: #### U A, UAMICAO #### [place] [address] UA Nitrite Negative Normal Negative [facility] Comment on above: Performed By: #### U A, UAMICAO #### [place] [address] UA pH 7.0 Normal 5.0 - 8.0 [facility] Comment on above: Performed By: #### U Pattie UAMICAO #### [address] [address] UA Protein Negative Normal Negative [facility] Comment on above: Performed By: #### U Pattie [place]AM[place]O #### [address] [address] UA Spec Grav 1.020 Normal 1.015-1.025 [facility] Comment on above: Performed By: #### U Pattie [place] #### [address] [address] UA Specimen Type Clean Catch Normal [facility] Comment on above: Performed By: #### Hanna Blankenship UAMICAO #### [address] [address] UA Urobilinogen 0.2 E.U./dL Normal 0.2-1.0 [facility] Comment on above: Performed By: #### Hanna Blankenship [place]O #### [address] [address] Urobilinogen (U) [Mass/Vol] Negative Normal Negative [facility] Comment on above: Performed By: #### U Pattie UAM[place]O #### [address] [address] .Auto Diffon 03-23-2024 Basophil, Absolute 0.0 10 3/mcL Normal 0.0-0.3 [facility] Comment on above: Performed By: #### A DIFF, CBC, GFR, BMP, ANEU, PBNP #### [facility] [address] [place] [address] Basophils/100 WBC (Bld) 0.3 % Normal 0.0-2.5 [facility] Comment on above: Performed By: #### A DIFF, CBC, GFR, BMP, ANEU, PBNP #### [facility] [address] [place] [address] Eosinophil, Absolute 0.1 10 3/mcL Normal 0.0-0.7 [facility] Comment on above: Performed By: #### A DIFF, CBC, GFR, BMP, ANEU, PBNP #### [address] [address] Eosinophils/100 WBC (Bld) 0.9 % Normal 0.0-6.0 [facility] Comment on above: Performed By: #### A DIFF, CBC, GFR, BMP, ANEU, PBNP #### [address] [address] Lymphocyte, Absolute 1.2 10 3/mcL Normal 0.9-4.3 [facility] Comment on above: Performed By: #### A DIFF, CBC, GFR, BMP, ANEU, PBNP #### [address] [address] Lymphocytes/100 WBC (Bld) 17.3 % Low 20.0-40.0 [facility] Comment on above: Performed By: #### A DIFF, CBC, GFR, BMP, ANEU, PBNP #### [address] [address] Monocyte, Absolute 0.4 10 3/mcL Normal 0.1-1.4 [facility] Comment on above: Performed By: #### A DIFF, CBC, GFR, BMP, ANEU, PBNP #### [address] [address] Monocytes/100 WBC (Bld) 6.0 % Normal 2.0-13.0 [facility] Comment on above: Performed By: #### A DIFF, CBC, GFR, BMP, ANEU, PBNP #### [address] [address] Neutrophils/100 WBC (Bld) 75.5 % High 50.0-75.0 [facility] Comment on above: Performed By: #### A DIFF, CBC, GFR, BMP, ANEU, PBNP #### [address] [address] .GFRon 03-23-2024 GFR >60 Normal [facility] Comment on above: Result Comment: GFR Population mean for , Non- Americans Ages 20-29 = 116 mL/min/1.73 sq.m. Ages 30-39 = 107 mL/min/1.73 sq.m. Ages 40-49 = 99 mL/min/1.73 sq.m. Ages 50-59 = 93 mL/min/1.73 sq.m. Ages 60-69 = 85 mL/min/1.73 sq.m. Ages 70+ = 75 mL/min/1.73 sq.m. Chronic Kidney Disease: Less than 60 mL/min/1.73 square meters End Stage Renal Disease: Less than 15 mL/min/1.73 square meters Performed By: #### A DIFF, CBC, GFR, BMP, ANEU, PBNP #### [address] [address] GFR Non- 55 ml/min/1.73sqm Normal [facility] Comment on above: Result Comment: GFR Population mean for , Non- Americans Ages 20-29 = 116 mL/min/1.73 sq.m. Ages 30-39 = 107 mL/min/1.73 sq.m. Ages 40-49 = 99 mL/min/1.73 sq.m. Ages 50-59 = 93 mL/min/1.73 sq.m. Ages 60-69 = 85 mL/min/1.73 sq.m. Ages 70+ = 75 mL/min/1.73 sq.m. Chronic Kidney Disease: Less than 60 mL/min/1.73 square meters End Stage Renal Disease: Less than 15 mL/min/1.73 square meters Performed By: #### A DIFF, CBC, GFR, BMP, ANEU, PBNP #### [address] [address] .NEUABSon 03-23-2024 Neutrophil, Absolute 5.1 10 3/mcL Normal 2.3-8.1 [facility] Comment on above: Performed By: #### A DIFF, CBC, GFR, BMP, ANEU, PBNP #### [address] [address] BMPon 03-23-2024 BUN/Creatinine Ratio 19.0 ratio Normal 10.0-22.0 [facility] Comment on above: Performed By: #### A DIFF, CBC, GFR, BMP, ANEU, PBNP #### [address] [address] Calcium [Mass/Vol] 10.0 mg/dL Normal 8.7-10.4 [facility] Comment on above: Performed By: #### A DIFF, CBC, GFR, BMP, ANEU, PBNP #### [address] [address] Chloride [Moles/Vol] 106 mmol/L Normal 98-110 [facility] Comment on above: Performed By: #### A DIFF, CBC, GFR, BMP, ANEU, PBNP #### [address] [address] CO2 [Moles/Vol] 29 mmol/L Normal 22-32 [facility] Comment on above: Performed By: #### A DIFF, CBC, GFR, BMP, ANEU, PBNP #### [address] [address] Creatinine [Mass/Vol] 1.00 mg/dL Normal 0.50-1.20 [facility] Comment on above: Result Comment: Test ing performed on [employer] analyzer using enzymatic creatinine methodology. Performed By: #### A DIFF, CBC, GFR, BMP, ANEU, PBNP #### [address] [address] Electrolyte Balance 9.0 mEq/L Normal 4.0-15.0 [facility] Comment on above: Performed By: #### A DIFF, CBC, GFR, BMP, ANEU, PBNP #### [address] [address] Glucose [Mass/Vol] 83 mg/dL Normal 82-115 [facility] Comment on above: Performed By: #### A DIFF, CBC, GFR, BMP, ANEU, PBNP #### [address] [address] Potassium [Moles/Vol] 3.9 mmol/L Normal 3.5-5.0 [facility] Comment on above: Performed By: #### A DIFF, CBC, GFR, BMP, ANEU, PBNP #### [address] [address] Sodium [Moles/Vol] 144 mmol/L Normal 136-145 [facility] Comment on above: Performed By: #### A DIFF, CBC, GFR, BMP, ANEU, PBNP #### [place] [address] Urea nitrogen [Mass/Vol] 19.0 mg/dL Normal 8.0-22.0 [facility] Comment on above: Performed By: #### A DIFF, CBC, GFR, BMP, ANEU, PBNP #### [place] [id number] CBCon 03-23-2024 Erythrocyte distribution width (RBC) [Ratio] 13.3 % Normal 11.5-15.5 [facility] Comment on above: Performed By: #### A DIFF, CBC, GFR, BMP, ANEU, PBNP #### [place] [address] Hematocrit (Bld) [Volume fraction] 44.9 % Normal 34.0-46.0 [facility] Comment on above: Performed By: #### A DIFF, CBC, GFR, BMP, ANEU, PBNP #### [place] [address] Hgb 15.0 G/dL Normal 12.0-16.0 [facility] Comment on above: Performed By: #### A DIFF, CBC, GFR, BMP, ANEU, PBNP #### [place] [id number] MCH (RBC) [Entitic mass] 31.7 pg Normal 27.0-33.0 [facility] Comment on above: Performed By: #### A DIFF, CBC, GFR, BMP, ANEU, PBNP #### [place] [address] MCHC 33.3 G/dL Normal 32.0-36.0 [facility] Comment on above: Performed By: #### A DIFF, CBC, GFR, BMP, ANEU, PBNP #### [place] [address] MCV (RBC) [Entitic vol] 95.0 fL Normal 80.0-99.0 [facility] Comment on above: Performed By: #### A DIFF, CBC, GFR, BMP, ANEU, PBNP #### [address] [address] Platelet 264 10 3/mcL Normal 150-450 [facility] Comment on above: Performed By: #### A DIFF, CBC, GFR, BMP, ANEU, PBNP #### [facility] [address] [place] [address] Platelet mean volume (Bld) [Entitic vol] 8.0 fL Normal 6.6-10.5 [facility] Comment on above: Performed By: #### A DIFF, CBC, GFR, BMP, ANEU, PBNP #### [place] [address] RBC 4.73 10 6/mcL Normal 4.10-5.30 [facility] Comment on above: Performed By: #### A DIFF, CBC, GFR, BMP, ANEU, PBNP #### [place] [id number] WBC 6.8 10 3/mcL Normal 4.5-10.8 [facility] Comment on above: Performed By: #### A DIFF, CBC, GFR, BMP, ANEU, PBNP #### [address] [address] LABORATORYOrdered By: SYSTEM SYSTEM on 03-23-2024 Basophils (Bld) [#/Vol] 0.0 103/mcL Normal 0.0 - 0.3 10^3/mcL AH Workflow SS Basophils/100 WBC (Bld) 0.3 % Normal 0.0 - 2.5 % Workflow SS Calcium [Mass/Vol] 10.0 mg/dL Normal 8.7 - 10. 4 mg/dL ADM SS Chloride [Moles/Vol] 106 mmol/L Normal 98 - 110 mEq/L AH ADM SS CO2 [Moles/Vol] 29 mmol/L Normal 22 - 32 mEq/L ADM SS Creatinine [Mass/Vol] 1.00 mg/dL Normal 0.50 - 1.20 mg/dL ADM SS Comment on above: Interpretive Data: T esting performed on [employer] analyzer using enzymatic creatinine methodology. Electrolyte Balance 9.0 mEq/L Normal 4.0 - 15 .0 mEq/L ADM SS Eosinophils (Bld) [#/Vol] 0.1 103/mcL Normal 0.0 - 0.7 10^3/mcL Workflow SS Eosinophils/100 WBC (Bld) 0.9 % Normal 0.0 - 6.0 % Workflow SS Erythrocyte distribution width (RBC) [Ratio] 13.3 % Normal 11.5 - 15.5 % Workflow SS GFR/1.73 sq M.predicted among blacks MDRD (S/P/Bld) [Vol rate/Area] ml/min/1.73sqm Invalid Interpretation Code [employer] Chemistry S Comment on above: Interpretive Data: GFR Population mean for , Non- Americans Ages 20-29 = 116 mL/min/1.73 sq.m. Ages 30-39 = 107 mL/min/1.73 sq.m. Ages 40-49 = 99 mL/min/1.73 sq.m. Ages 50-59 = 93 mL/min/1.73 sq.m. Ages 60-69 = 85 mL/min/1.73 sq.m. Ages 70+ = 75 mL/min/1.73 sq.m. Chronic Kidney Disease: Less than 60 mL/min/1.73 square meters End Stage Renal Disease: Less than 15 mL/min/1.73 square meters GFR/1.73 sq M.predicted among non-blacks MDRD (S/P/Bld) [Vol rate/Area] 55 ml/min/1.73sqm Invalid Interpretation Code [employer] Chemistry S Comment on above: Interpretive Data: GFR Population mean for , Non- Americans Ages 20-29 = 116 mL/min/1.73 sq.m. Ages 30-39 = 107 mL/min/1.73 sq.m. Ages 40-49 = 99 mL/min/1.73 sq.m. Ages 50-59 = 93 mL/min/1.73 sq.m. Ages 60-69 = 85 mL/min/1.73 sq.m. Ages 70+ = 75 mL/min/1.73 sq.m. Chronic Kidney Disease: Less than 60 mL/min/1.73 square meters End Stage Renal Disease: Less than 15 mL/min/1.73 square meters Glucose [Mass/Vol] 83 mg/dL Normal 82 - 115 mg/dL ADM SS Hematocrit (Bld) [Volume fraction] 44.9 % Normal 34.0 - 46.0 % Workflow SS Hemoglobin (Bld) [Mass/Vol] 15.0 G/dL Normal 12.0 - 16.0 G/dL AH Workflow SS Lymphocytes (Bld) [#/Vol] 1.2 103/mcL Normal 0.9 - 4.3 10^3/mcL AH Workflow SS Lymphocytes/100 WBC (Bld) 17.3 % Low 20.0 - 40.0 % AH Workflow SS MCH (RBC) [Entitic mass] 31.7 pg Normal 27.0 - 33.0 pg AH Workflow SS MCHC 33.3 G/dL Normal 32.0 - 36.0 G/dL Workflow SS MCV (RBC) [Entitic vol] 95.0 fL Normal 80.0 - 99.0 fL Workflow SS Monocytes (Bld) [#/Vol] 0.4 103/mcL Normal 0.1 - 1.4 10^3/mcL AH Workflow SS Monocytes/100 WBC (Bld) 6.0 % Normal 2.0 - 13.0 % AH Workflow SS Natriuretic peptide.B prohormone N-Terminal IA [Mass/Vol] 917 pg/mL High 0 - 900 pg/mL ADM SS Neutrophils (Bld) [#/Vol] 5.1 103/mcL Normal 2.3 - 8.1 10^3/mcL AH Workflow SS Neutrophils/100 WBC (Bld) 75.5 % High 50.0 - 75.0 % AH Workflow SS Platelet mean volume (Bld) [Entitic vol] 8.0 fL Normal 6.6 - 10.5 fL Workflow SS Platelets (Bld) [#/Vol] 264 103/mcL Normal 150 - 450 10^3/mcL AH Workflow SS Potassium [Moles/Vol] 3.9 mmol/L Normal 3.5 - 5.0 mEq/L AH ADM SS RBC (Bld) [#/Vol] 4.73 106/mcL Normal 4.10 - 5.3 0 10^6/mcL AH Workflow SS Sodium [Moles/Vol] 144 mmol/L Normal 136 - 145 mEq/L ADM SS Urea nitrogen [Mass/Vol] 19.0 mg/dL Normal 8.0 - 22.0 mg/dL ADM SS Urea nitrogen/Creatinine [Mass ratio] 19.0 ratio Normal 10.0 - 22.0 ratio AH ADM SS WBC (Bld) [#/Vol] 6.8 103/mcL Normal 4.5 - 10.8 10^3/mcL AH Workflow SS PBNPon 03-23-2024 Natriuretic peptide B (Bld) [Mass/Vol] 917 pg/mL High 0-900 [facility] Comment on above: Performed By: #### A DIFF, CBC, GFR, BMP, ANEU, PBNP #### [address] [address] .Auto Diffon 01-01-2024 Basophil, Absolute 0.0 10 3/mcL Normal 0.0-0.2 [facility] ([place]) Comment on above: Performed By: #### C MP, ANEU, CBC, ADIFF, TSH, FT4, LIPID, GFR, PBNP #### [address] [address] Basophils/100 WBC (Bld) 0.8 % Normal 0.0-2.5 [facility] ([place]) Comment on above: Performed By: #### C MP, ANEU, CBC, ADIFF, TSH, FT4, LIPID, GFR, PBNP #### [address] [address] Eosinophil, Absolute 0.1 10 3/mcL Normal 0.0-0.4 [facility] ([place]) Comment on above: Performed By: #### C MP, ANEU, CBC, ADIFF, TSH, FT4, LIPID, GFR, PBNP #### [address] [address] Eosinophils/100 WBC (Bld) 2.1 % Normal 0.0-7.0 [facility] ([place]) Comment on above: Performed By: #### C MP, ANEU, CBC, ADIFF, TSH, FT4, LIPID, GFR, PBNP #### [address] [address] Lymphocyte, Absolute 1.3 10 3/mcL Normal 0.8-3.9 [facility] ([place]) Comment on above: Performed By: #### C MP, ANEU, CBC, ADIFF, TSH, FT4, LIPID, GFR, PBNP #### [address] [address] Lymphocytes/100 WBC (Bld) 30.4 % Normal 10.0-50.0 [facility] ([place]) Comment on above: Performed By: #### C MP, ANEU, CBC, ADIFF, TSH, FT4, LIPID, GFR, PBNP #### [address] [address] Monocyte, Absolute 0.3 10 3/mcL Normal 0.2-1.0 [facility] ([place]) Comment on above: Performed By: #### C MP, ANEU, CBC, ADIFF, TSH, FT4, LIPID, GFR, PBNP #### [address] [address] Monocytes/100 WBC (Bld) 6.2 % Normal 1.7-13.0 [facility] ([place]) Comment on above: Performed By: #### C MP, ANEU, CBC, ADIFF, TSH, FT4, LIPID, GFR, PBNP #### [address] [address] Neutrophils/100 WBC (Bld) 60.5 % Normal 37.0-80.0 [facility] ([place]) Comment on above: Performed By: #### C MP, ANEU, CBC, ADIFF, TSH, FT4, LIPID, GFR, PBNP #### [address] [address] .GFRon 01-01-2024 GFR 66 ml/min/1.73sqm Normal [facility] ([place]) Comment on above: Result Comment: GFR Population mean for , Non- Americans Ages 20-29 = 116 mL/min/1.73 sq.m. Ages 30-39 = 107 mL/min/1.73 sq.m. Ages 40-49 = 99 mL/min/1.73 sq.m. Ages 50-59 = 93 mL/min/1.73 sq.m. Ages 60-69 = 85 mL/min/1.73 sq.m. Ages 70+ = 75 mL/min/1.73 sq.m. Chronic Kidney Disease: Less than 60 mL/min/1.73 square meters End Stage Renal Disease: Less than 15 mL/min/1.73 square meters Performed By: #### C MP, ANEU, CBC, ADIFF, TSH, FT4, LIPID, GFR, PBNP #### [address] [address] GFR Non- 55 ml/min/1.73sqm Normal [facility] ([place]) Comment on above: Result Comment: GFR Population mean for , Non- Americans Ages 20-29 = 116 mL/min/1.73 sq.m. Ages 30-39 = 107 mL/min/1.73 sq.m. Ages 40-49 = 99 mL/min/1.73 sq.m. Ages 50-59 = 93 mL/min/1.73 sq.m. Ages 60-69 = 85 mL/min/1.73 sq.m. Ages 70+ = 75 mL/min/1.73 sq.m. Chronic Kidney Disease: Less than 60 mL/min/1.73 square meters End Stage Renal Disease: Less than 15 mL/min/1.73 square meters Performed By: #### C MP, ANEU, CBC, ADIFF, TSH, FT4, LIPID, GFR, PBNP #### [address] [id number] .NEUABSon 01-01-2024 Neutrophil, Absolute 2.6 10 3/mcL Low 2.9-6.2 [facility] ([place]) Comment on above: Performed By: #### C MP, ANEU, CBC, ADIFF, TSH, FT4, LIPID, GFR, PBNP #### [address] [id number] CBCon 01-01-2024 Erythrocyte distribution width (RBC) [Ratio] 14.0 % Normal 11.5-14.5 [facility] ([place]) Comment on above: Performed By: #### C MP, ANEU, CBC, ADIFF, TSH, FT4, LIPID, GFR, PBNP #### [address] [address] [address] Hematocrit (Bld) [Volume fraction] 41.2 % Normal 37.0-47.0 [facility] ([place]) Comment on above: Performed By: #### C MP, ANEU, CBC, ADIFF, TSH, FT4, LIPID, GFR, PBNP #### [address] [address] Hgb 13.7 G/dL Normal 12.0-16.0 [facility] ([place]) Comment on above: Performed By: #### C MP, ANEU, CBC, ADIFF, TSH, FT4, LIPID, GFR, PBNP #### [address] [address] MCH (RBC) [Entitic mass] 31.4 pg High 27.0-31.2 [facility] ([place]) Comment on above: Performed By: #### C MP, ANEU, CBC, ADIFF, TSH, FT4, LIPID, GFR, PBNP #### [address] [address] MCHC 33.1 G/dL Normal 33.0-37.0 [facility] ([place] Comment on above: Performed By: #### C MP, ANEU, CBC, ADIFF, TSH, FT4, LIPID, GFR, PBNP #### [address] [address] MCV (RBC) [Entitic vol] 94.7 fL High 80.0-94.0 [facility] ([place] Comment on above: Performed By: #### C MP, ANEU, CBC, ADIFF, TSH, FT4, LIPID, GFR, PBNP #### [address] [address] Platelet 227 10 3/mcL Normal 130-400 [facility] ([place]) Comment on above: Performed By: #### C MP, ANEU, CBC, ADIFF, TSH, FT4, LIPID, GFR, PBNP #### [address] [address] Platelet mean volume (Bld) [Entitic vol] 7.6 fL Normal 7.4-10.4 [facility] ([place] Comment on above: Performed By: #### C MP, ANEU, CBC, ADIFF, TSH, FT4, LIPID, GFR, PBNP #### [address] [address] RBC 4.36 10 6/mcL Normal 4.20-5.40 [facility] ([place]) Comment on above: Performed By: #### C MP, ANEU, CBC, ADIFF, TSH, FT4, LIPID, GFR, PBNP #### [address] [address] WBC 4.4 10 3/mcL Low 4.6-10.8 [facility] ([place] Comment on above: Performed By: #### C MP, ANEU, CBC, ADIFF, TSH, FT4, LIPID, GFR, PBNP #### [address] [address] CMPon 01-01-2024 Albumin Level 3.8 G/dL Normal 3.4-4.8 [facility] ([place] Comment on above: Performed By: #### C MP, ANEU, CBC, ADIFF, TSH, FT4, LIPID, GFR, PBNP #### [address] [address] Albumin/Globulin [Mass ratio] 1.5 {ratio} Normal 1.1-2.5 [facility] ([place] Comment on above: Performed By: #### C MP, ANEU, CBC, ADIFF, TSH, FT4, LIPID, GFR, PBNP #### [address] [address] ALP [Catalytic activity/Vol] 66 U/L Normal 40-135 [facility] ([place] Comment on above: Performed By: #### C MP, ANEU, CBC, ADIFF, TSH, FT4, LIPID, GFR, PBNP #### [address] [address] ALT [Catalytic activity/Vol] 27 U/L Normal 14-59 [facility] ([place] Comment on above: Performed By: #### C MP, ANEU, CBC, ADIFF, TSH, FT4, LIPID, GFR, PBNP #### [address] [address] AST [Catalytic activity/Vol] 16 U/L Normal 10-40 [facility] ([place] Comment on above: Performed By: #### C MP, ANEU, CBC, ADIFF, TSH, FT4, LIPID, GFR, PBNP #### [address] [address] Bili Total 0.5 mg/dL Normal 0.2-1.0 [facility] ([place]) Comment on above: Result Comment: Use of this assay is not recommended for patients undergoing treatment with eltrombopag due to the potential for falsely elevated results. Performed By: #### C MP, ANEU, CBC, ADIFF, TSH, FT4, LIPID, GFR, PBNP #### [place] [address] BUN/Creatinine Ratio 14 ratio Normal 7-27 [facility] ([place]) Comment on above: Performed By: #### C MP, ANEU, CBC, ADIFF, TSH, FT4, LIPID, GFR, PBNP #### [address] [address] Calcium [Mass/Vol] 8.7 mg/dL Normal 8.4-10.2 [facility] ([place]) Comment on above: Performed By: #### C MP, ANEU, CBC, ADIFF, TSH, FT4, LIPID, GFR, PBNP #### [address] [address] Chloride [Moles/Vol] 106 mmol/L Normal 98-107 [facility] ([place] Comment on above: Performed By: #### C MP, ANEU, CBC, ADIFF, TSH, FT4, LIPID, GFR, PBNP #### [address] [address] CO2 [Moles/Vol] 30 mmol/L Normal 23-31 [facility] ([place] Comment on above: Performed By: #### C MP, ANEU, CBC, ADIFF, TSH, FT4, LIPID, GFR, PBNP #### [address] [address] Creatinine [Mass/Vol] 1.01 mg/dL Normal 0.55-1.02 [facility] ([place]) Comment on above: Performed By: #### C MP, ANEU, CBC, ADIFF, TSH, FT4, LIPID, GFR, PBNP #### [address] [address] Electrolyte Balance 5.0 mEq/L Normal 4.0-15.0 [facility] ([place]) Comment on above: Performed By: #### C MP, ANEU, CBC, ADIFF, TSH, FT4, LIPID, GFR, PBNP #### [address] [address] Globulin 2.5 G/dL Normal [facility] ([place]) Comment on above: Performed By: #### C MP, ANEU, CBC, ADIFF, TSH, FT4, LIPID, GFR, PBNP #### [address] [address] Glucose [Mass/Vol] 81 mg/dL Normal 80-115 [facility] ([place]) Comment on above: Performed By: #### C MP, ANEU, CBC, ADIFF, TSH, FT4, LIPID, GFR, PBNP #### [address] [address] Potassium [Moles/Vol] 4.1 mmol/L Normal 3.5-5.1 [facility] ([place]) Comment on above: Performed By: #### C MP, ANEU, CBC, ADIFF, TSH, FT4, LIPID, GFR, PBNP #### [address] [address] Sodium [Moles/Vol] 141 mmol/L Normal 136-145 [facility] ([place]) Comment on above: Performed By: #### C MP, ANEU, CBC, ADIFF, TSH, FT4, LIPID, GFR, PBNP #### [address] [address] Total Protein 6.3 G/dL Low 6.4-8.2 [facility] ([place]) Comment on above: Performed By: #### C MP, ANEU, CBC, ADIFF, TSH, FT4, LIPID, GFR, PBNP #### [address] [address] Urea nitrogen [Mass/Vol] 14 mg/dL Normal 7-18 [facility] ([place]) Comment on above: Performed By: #### C MP, ANEU, CBC, ADIFF, TSH, FT4, LIPID, GFR, PBNP #### [address] [address] FT4on 01-01-2024 Free T4 [Mass/Vol] 1.03 ng/dL Normal 0.76-1.46 [facility] ([place]) Comment on above: Performed By: #### C MP, ANEU, CBC, ADIFF, TSH, FT4, LIPID, GFR, PBNP #### [place] [address] LABORATORYOrdered By: SYSTEM SYSTEM on 01-01-2024 Albumin BCP dye [Mass/Vol] 3.8 G/dL Normal 3.4 - 4.8 G/dL AO ADM SS Albumin/Globulin [Mass ratio] 1.5 {ratio} Normal 1.1 - 2.5 ratio AO ADM SS ALP [Catalytic activity/Vol] 66 U/L Normal 40 - 135 U/L AO ADM SS ALT With P-5'-P [Catalytic activity/Vol] 27 U/L Normal 14 - 59 U/L AO ADM SS AST With P-5'-P [Catalytic activity/Vol] 16 U/L Normal 10 - 40 U/L AO ADM SS Basophil, Absolute 0.0 103/mcL Normal 0.0 - 0.2 10^3/mcL AO Workflow SS Basophils/100 WBC (Bld) 0.8 % Normal 0.0 - 2.5 % AO Workflow SS Bilirubin [Mass/Vol] 0.5 mg/dL Normal 0.2 - 1.0 mg/dL AO ADM SS Comment on above: Interpretive Data: U se of this assay is not recommended for patients undergoing treatment with eltrombopag due to the potential for falsely elevated results. Calcium [Mass/Vol] 8.7 mg/dL Normal 8.4 - 10. 2 mg/dL AO ADM SS Chloride [Moles/Vol] 106 mmol/L Normal 98 - 107 mmol/L AO ADM SS CO2 [Moles/Vol] 30 mmol/L Normal 23 - 31 mmol/L AO ADM SS Creatinine [Mass/Vol] 1.01 mg/dL Normal 0.55 - 1.02 mg/dL AO ADM SS Electrolyte Balance 5.0 mEq/L Normal 4.0 - 15 .0 mEq/L AO ADM SS Eosinophil, Absolute 0.1 103/mcL Normal 0.0 - 0.4 10^3/mcL AO Workflow SS Eosinophils/100 WBC (Bld) 2.1 % Normal 0.0 - 7.0 % AO Workflow SS Erythrocyte distribution width (RBC) [Ratio] 14.0 % Normal 11.5 - 14.5 % AO Workflow SS Free T4 [Mass/Vol] 1.03 ng/dL Normal 0.76 - 1. 46 ng/dL AO ADM SS GFR/1.73 sq M.predicted among blacks MDRD (S/P/Bld) [Vol rate/Area] 66 ml/min/1.73sqm Invalid Interpretation Code AO Chemistry S Comment on above: Interpretive Data: GFR Population mean for , Non- Americans Ages 20-29 = 116 mL/min/1.73 sq.m. Ages 30-39 = 107 mL/min/1.73 sq.m. Ages 40-49 = 99 mL/min/1.73 sq.m. Ages 50-59 = 93 mL/min/1.73 sq.m. Ages 60-69 = 85 mL/min/1.73 sq.m. Ages 70+ = 75 mL/min/1.73 sq.m. Chronic Kidney Disease: Less than 60 mL/min/1.73 square meters End Stage Renal Disease: Less than 15 mL/min/1.73 square meters GFR/1.73 sq M.predicted among non-blacks MDRD (S/P/Bld) [Vol rate/Area] 55 ml/min/1.73sqm Invalid Interpretation Code AO Chemistry S Comment on above: Interpretive Data: GFR Population mean for , Non- Americans Ages 20-29 = 116 mL/min/1.73 sq.m. Ages 30-39 = 107 mL/min/1.73 sq.m. Ages 40-49 = 99 mL/min/1.73 sq.m. Ages 50-59 = 93 mL/min/1.73 sq.m. Ages 60-69 = 85 mL/min/1.73 sq.m. Ages 70+ = 75 mL/min/1.73 sq.m. Chronic Kidney Disease: Less than 60 mL/min/1.73 square meters End Stage Renal Disease: Less than 15 mL/min/1.73 square meters Globulin 2.5 G/dL Invalid Interpretation Code AO ADM SS Glucose [Mass/Vol] 81 mg/dL Normal 80 - 115 mg/dL AO ADM SS Hematocrit (Bld) [Volume fraction] 41.2 % Normal 37.0 - 47.0 % AO Workflow SS Hemoglobin (Bld) [Mass/Vol] 13.7 G/dL Normal 12.0 - 16.0 G/dL AO Workflow SS Lymphocyte, Absolute 1.3 103/mcL Normal 0.8 - 3.9 10^3/mcL AO Workflow SS Lymphocytes/100 WBC (Bld) 30.4 % Normal 10.0 - 50.0 % AO Workflow SS MCH (RBC) [Entitic mass] 31.4 pg High 27.0 - 31.2 pg AO Workflow SS MCHC 33.1 G/dL Normal 33.0 - 37.0 G/dL AO Workflow SS MCV (RBC) [Entitic vol] 94.7 fL High 80.0 - 94.0 fL AO Workflow SS Monocyte, Absolute 0.3 103/mcL Normal 0.2 - 1.0 10^3/mcL AO Workflow SS Monocytes/100 WBC (Bld) 6.2 % Normal 1.7 - 13.0 % AO Workflow SS Natriuretic peptide.B prohormone N-Terminal [Mass/Vol] 345 pg/mL High 0 - 125 pg/mL AO ADM SS Comment on above: Interpretive Data: N T-proBNP results of less than 300 pg/mL effectively rules out acute congestive heart failure with 99% negative predictive value. Neutrophil, Absolute 2.6 103/mcL Low 2.9 - 6.2 10^3/mcL AO Workflow SS Neutrophils/100 WBC (Bld) 60.5 % Normal 37.0 - 80.0 % AO Workflow SS Platelet mean volume (Bld) [Entitic vol] 7.6 fL Normal 7.4 - 10.4 fL AO Workflow SS Platelets (Bld) [#/Vol] 227 103/mcL Normal 130 - 400 10^3/mcL AO Workflow SS Potassium [Moles/Vol] 4.1 mmol/L Normal 3.5 - 5.1 mmol/L AO ADM SS Protein [Mass/Vol] 6.3 G/dL Low 6.4 - 8.2 G/dL AO ADM SS RBC (Bld) [#/Vol] 4.36 106/mcL Normal 4.20 - 5.4 0 10^6/mcL AO Workflow SS Sodium [Moles/Vol] 141 mmol/L Normal 136 - 145 mmol/L AO ADM SS TSH Qn 0.73 m[IU]/L Normal 0.36 - 3.74 mcIU/mL AO ADM SS Urea nitrogen [Mass/Vol] 14 mg/dL Normal 7 - 18 mg/dL AO ADM SS Urea nitrogen/Creatinine [Mass ratio] 14 ratio Normal 7 - 27 ratio AO ADM SS WBC (Bld) [#/Vol] 4.4 103/mcL Low 4.6 - 10.8 10^3/mcL AO Workflow SS LABORATORYOrdered By: Emani Wagner on 01-01-2024 Cholesterol [Mass/Vol] 204 mg/dL High 0 - 200 mg/dL AO ADM SS Comment on above: Interpretive Data: C holesterol Reference Interval: Less than 200 Desirable 200-239 Borderline high risk 240 and above High risk Cholesterol in HDL [Mass/Vol] 71 mg/dL High 40 - 60 mg/dL AO ADM SS Cholesterol in LDL [Mass/Vol] 121 mg/dL Normal 0 - 130 mg/dL AO ADM SS Triglyceride [Mass/Vol] 62 mg/dL Normal 0 - 150 mg/dL AO ADM SS Comment on above: Interpretive Data: T riglyceride Reference Interval: Less than 150 Normal 150-199 Borderline high risk 200-499 High risk 500 or higher Very high risk LIPIDon 01-01-2024 Cholesterol [Mass/Vol] 204 mg/dL High 0-200 [facility] ([place]) Comment on above: Result Comment: Chol esterol Reference Interval: Less than 200 Desirable 200-239 Borderline high risk 240 and above High risk Performed By: #### C MP, ANEU, CBC, ADIFF, TSH, FT4, LIPID, GFR, PBNP #### [address] [address] Cholesterol in HDL [Mass/Vol] 71 mg/dL High 40-60 [facility] ([place]) Comment on above: Performed By: #### C MP, ANEU, CBC, ADIFF, TSH, FT4, LIPID, GFR, PBNP #### [address] [address] Cholesterol in LDL [Mass/Vol] 121 mg/dL Normal 0-130 [facility] ([place]) Comment on above: Performed By: #### C MP, ANEU, CBC, ADIFF, TSH, FT4, LIPID, GFR, PBNP #### [address] [address] Triglyceride [Mass/Vol] 62 mg/dL Normal 0-150 [facility] ([place]) Comment on above: Result Comment: Trig lyceride Reference Interval: Less than 150 Normal 150-199 Borderline high risk 200-499 High risk 500 or higher Very high risk Performed By: #### C MP, ANEU, CBC, ADIFF, TSH, FT4, LIPID, GFR, PBNP #### [address] [address] PBNPon 01-01-2024 Natriuretic peptide B (Bld) [Mass/Vol] 345 pg/mL High 0-125 [facility] ([place]) Comment on above: Result Comment: NT-p roBNP results of less than 300 pg/mL effectively rules out acute congestive heart failure with 99% negative predictive value. Performed By: #### C MP, ANEU, CBC, ADIFF, TSH, FT4, LIPID, GFR, PBNP #### [address] [address] TSHon 01-01-2024 TSH Qn 0.73 m[IU]/L Normal 0.36-3.74 [facility] ([place]) Comment on above: Performed By: #### C MP, ANEU, CBC, ADIFF, TSH, FT4, LIPID, GFR, PBNP #### [address] [address] CNOVon 11-15-2023 CNOV Office Visit ([facility] ) IZZY ROSENTHAL ([id number]) 1955 F [place] Date Time Provider Department 11/15/23 12:45 PM AMITA MANDUJANO [facility] During your visit today, we recorded the following information about you: Temperature Pulse Respiration Blood pressure 97.9 degrees 60/minute 16/minute 104/60 Weight 53 kg Amita Mandujano APRN.CNP 11/15/2023 12:52 PM Signed ASSESSMENT/PLAN: 1. Dermatitis due to plants, including poison isis, sumac, and oak - ICD9: 692.6, ICD10: L25.5 - Oral Steriod tx -Prednisone taper - Topical steriod tx with Rx for steriod cream/ointment- see orders - discussed skin care of rash - follow up if symptoms persist or worsen. - PREDNISONE 10 MG TABLET - TRIAMCINOLONE ACETONIDE 0.025 % TOPICAL CREAM - Follow-up with your PCP in 3-5 days if symptoms have not improved or sooner if symptoms worsen - Discussed red flags and need for immediate medical evaluation if any occur. - Discussed supportive care treatment with fluids, rest and analgesia. - Discussed expected course of illness Amita Mandujano APRN.CNP [facility] PATIENT INFO POISON ISIS INTRODUCTION When the skin comes in direct contact with an irritating or allergy-causing substance, contact dermatitis can develop. Exposure to poison isis, poison oak, and poison sumac cause more cases of allergic contact dermatitis than all other plant families combined. People of all ethnicities and skin types are at risk for developing poison isis dermatitis. The severity of the reaction tends to decrease with age, especially in people who have had mild reactions in the past. People in occupations such as firefighting, forestry, and farming are at a higher risk of poison isis dermatitis because of repeated exposure to toxic plants. POISON ISIS CAUSES Poison isis, poison oak, and poison sumac plants all contain a compound called urushiol, which is a light, colorless oil that is found on the fruit, leaves, stem, root, and sap of the plant. When urushiol is exposed to air, it turns brown and the plant leaves develop small black spots. There are several ways that you can be exposed to urushiol: By touching the sap or rubbing against the leaves of the toxic plant By touching something that has urushiol on it, such as animal fur or garden tools By breathing in smoke when toxic plants are burned Ginkgo fruit and the skin of mangoes also contain urushiol and can produce symptoms similar to poison isis dermatitis. IDENTIFYING POISON ISIS Leaves of three, let them be is a phrase often used to identify plants that cause poison isis dermatitis. Generally, poison isis and poison oak have three leaves with flowering branches on a single stem. Poison sumac has five, seven, or more leaves that angle upward toward the top of the stem. Some types of poison isis produce a green or off-white fruit in [place], and in some cases, black dots form on the plants' leaves. It is not always possible to identify the plant by the leaves alone since the appearance can vary depending upon the season, growth cycle, region, and climate. Poison isis, oak, and sumac plants grow in many areas across the [facility] and throughout the world. [place] of the [facility], poison isis commonly grows as a climbing vine. In the [place] area and west, poison isis tends to grow low to the ground as a shrub. Poison oak most often grows west of the [facility], and poison sumac inhabits boggy areas in the southeastern part of the [facility]. The plants are not usually found in areas at high elevations or in desert climates. POISON ISIS SIGNS AND SYMPTOMS After contact with urushiol, approximately 50 percent of people develop signs and symptoms of poison isis dermatitis. The symptoms and severity differ from person to person. The most common signs and symptoms of poison isis dermatitis are: Intense itching Skin swelling Skin redness These symptoms usually develop within four hours to four days after exposure to the urushiol. After the initial symptoms, you will develop fluid-filled blisters in a line or streak-like pattern. The symptoms are worst within 1 to 14 days after touching the plant, but can develop up to 21 days later if you have never been exposed to urushiol before. The blisters can occur at different times in different people; blisters can develop on the arms several days after blisters on the hands developed. This does not mean that the reaction is spreading from one area of the body to the other. The fluid that leaks from blisters does not cause symptoms. Poison isis dermatitis is not contagious and cannot be passed from person to person. However, urushiol can be carried under fingernails and on clothes; if another person comes in contact with the urushiol, they can develop poison isis dermatitis. POISON ISIS DIAGNOSIS Poison (more content not included)... Normal [facility] UA DIP, URINE (POC)on 2022 BILIRUBIN UA (POCT) Negative Negative [facility] CLARITY UA (POCT) Slightly Cloudy Cl [facility] COLOR UA (POCT) Dark yellow [facility] GLUCOSE UA (POCT) Negative Negative mg/dL [facility] HEMOGLOBIN/BLOOD UA (POCT) Small Abnormal Negative [facility] KETONE UA (POCT) 15 mg/dL Abnormal Negative mg/dL [facility] LEUKOCYTES UA (POCT) Small Abnormal Negative [facility] NITRITE UA (POCT) Negative Negative [facility] PH UA (POCT) 5.5 4.5 - 8.0 [facility] Protein Ql (U) Trace Abnormal Negative mg/dL [facility] SPECIFIC GRAVITY UA (POCT) >=1.030 1.005 - 1.030 [facility] UROBILINOGEN UA (POCT) 0.2 E.U./dL Normal E.U./dL [facility] UA DIP, URINE (POC)on 2022 BILIRUBIN UA (POCT) Negative Negative [facility] CLARITY UA (POCT) Clear [facility] COLOR UA (POCT) Yellow [facility] GLUCOSE UA (POCT) Negative Negative mg/dL [facility] HEMOGLOBIN/BLOOD UA (POCT) Moderate Abnormal Negative [facility] KETONE UA (POCT) Trace Negative mg/dL [facility] LEUKOCYTES UA (POCT) Small Abnormal Negative [facility] NITRITE UA (POCT) Negative Negative [facility] PH UA (POCT) 6.0 4.5 - 8.0 [facility] Protein Ql (U) Negative Negative mg/dL [facility] SPECIFIC GRAVITY UA (POCT) 1.025 1.005 - 1.030 [facility] UROBILINOGEN UA (POCT) 0.2 E.U./dL Normal E.U./dL [facility] 25(OH)D3 SerPl-ncon 2022 25-hydroxyvitamin D3 [Mass/Vol] 59.7 ng/mL Normal >=30.0 [facility] Comment on above: Order Comment: Carmelita rm Type: BLOOD SPECIMEN Ordering Facility: External Submitter Address: , , Result Comment: Clas sification of 25 [place] Vitamin D status: Deficiency: <= 20.0 ng/ml. Insufficiency: 21.0-29.0 ng/ml. Sufficiency: >= 30.0 ng/ml. Performed By: #### 1 989-3 #### [facility] CLIA [id number] [address] [facility] Calcium [Mass/Vol] 10.1 mg/dL Normal 8.5-10.2 [facility] Comment on above: Order Comment: [facility] Type: BLOOD SPECIMEN Ordering Facility: External Submitter Address: , , Performed By: #### 3 016-3, 81845-2 #### [facility] CLIA [id number] [address] TSH SerPl-aCncon 05-13-2022 TSH Qn 0.946 m[IU]/L Normal 0.270-4.200 [facility] Comment on above: Order Comment: [facility] Type: BLOOD SPECIMEN Ordering Facility: External Submitter Address: , , Performed By: #### 3 016-3, [id number] #### [facility] CLIA [id number] [address] [place] [address] [facility] DXA-AXIAL SKELETONon 022 [facility] XR CHEST 2V FRONTAL/LATon [facility] XR Chest PA and Lateralon IMPRESSION: No evidence of acute cardiopulmonary disease. Senior Cost Analyst: LAVERNE Transcribe Date/Time: Mar 19 2022 7:14P Dictated by : MELONIE CLIFTON MD This examination was interpreted and the report reviewed and electronically signed by: MELONIE CLIFTON MD on Mar 19 2022 7:16PM [facility] DIVISION OF RADIOLOGY * * *Final Report* * * DATE OF EXAM: Mar 19 2022 7:09PM WOX [id number] - XR CHEST 2V FRONTAL/LAT / PROCEDURE REASON: multiple diagnoses * * * * Physician Interpretation * * * * EXAMINATION: CHEST RADIOGRAPH (2 VIEW FRONTAL & LATERAL) CLINICAL HISTORY: Viral illness URI, acute MQ: XC2_6 EXAM DATE/TIME: 03/19/2022 7:09 PM COMPARISON: 05/20/2021 RESULT: Lines, tubes, and devices: None. Lungs and pleura: No consolidation. No lung mass. No pleural effusion. No pneumothorax. Cardiomediastinal silhouette: Stable cardiomediastinal silhouette. Bones and soft tissues: Visualized portions of the bony thorax appear intact. Degenerative changes and hypertrophic endplate spurring in the thoracic spine. Multiple subcutaneous soft tissue soft tissue surgical clips seen overlying the chest compatible with prior mastectomies. DIVISION OF RADIOLOGY Provider, [facility] - 03/19/2022 * * *Final Report* * * DATE OF EXAM: Mar 19 2022 7:09PM WOX [id number] - XR CHEST 2V FRONTAL/LAT / PROCEDURE REASON: multiple diagnoses * * * * Physician Interpretation * * * * EXAMINATION: CHEST RADIOGRAPH (2 VIEW FRONTAL & LATERAL) CLINICAL HISTORY: Viral illness URI, acute MQ: XC2_6 EXAM DATE/TIME: 03/19/2022 7:09 PM COMPARISON: 05/20/2021 RESULT: Lines, tubes, and devices: None. Lungs and pleura: No consolidation. No lung mass. No pleural effusion. No pneumothorax. Cardiomediastinal silhouette: Stable cardiomediastinal silhouette. Bones and soft tissues: Visualized portions of the bony thorax appear intact. Degenerative changes and hypertrophic endplate spurring in the thoracic spine. Multiple subcutaneous soft tissue soft tissue surgical clips seen overlying the chest compatible with prior mastectomies. IMPRESSION IMPRESSION: No evidence of acute cardiopulmonary disease. Senior Cost Analyst: LAVERNE Transcribe Date/Time: Mar 19 2022 7:14P Dictated by : MELONIE CLIFTON MD This examination was interpreted and the report reviewed and electronically signed by: MELONIE CLIFTON MD on Mar 19 2022 7:16PM [facility] Radiology Study observation (narrative) [facility] XR Chest PA and LateralOrder ed By: [facility] Provider on 03-19-2022 [facility] XR Chest PA and Lateralon IMPRESSION: 1. No acute cardiopulmonary abnormalities. 2. Status post bilateral mastectomies presumably. 3. Focal density overlying right lower lung likely callus formation related to a healed or healing fracture in the anterior right sixth rib. Clinical correlation needed. Oblique views could be obtained for confirmation. Senior Cost Analyst: PSCB Transcribe Date/Time: May 20 2021 8:02P Dictated by : ADRIÁN FORREST MD This examination was interpreted and the report reviewed and electronically signed by: ADRIÁN FORREST MD on May 20 2021 8:08PM EST DIVISION OF RADIOLOGY * * *Final Report* * * DATE OF EXAM: May 20 2021 7:57PM WOX [id number] - XR CHEST 2V FRONTAL/LAT / PROCEDURE REASON: cough * * * * Physician Interpretation * * * * EXAMINATION: CHEST RADIOGRAPH (2 VIEW FRONTAL & LATERAL), 05/20/2021 CLINICAL HISTORY: Cough MQ: XC2_6 EXAM DATE/TIME: 05/20/2021 7:57 PM COMPARISON: PA and lateral chest 04/25/2021. Portable chest 03/11/2017. RESULT: Lines, tubes, and devices: None. Lungs and pleura: Focal density again seen overlying the anterior right sixth rib, likely related to the rib rather than underlying pulmonary abnormality. No pulmonary infiltrates.. No pleural effusion. No pneumothorax. Cardiomediastinal silhouette: Heart size within normal limits. Tortuous aorta. Hilar structures appear normal. Bones and soft tissues: Bilateral surgical clips presumably from mastectomies. Focal density overlying the right anterior sixth rib, similar appearance to PA view 04/25/2021. Mild degenerative changes in the spine. DIVISION OF RADIOLOGY Provider, Cc Melani Carbon - 05/20/2021 * * *Final Report* * * DATE OF EXAM: May 20 2021 7:57PM WOX [id number] - XR CHEST 2V FRONTAL/LAT / PROCEDURE REASON: cough * * * * Physician Interpretation * * * * EXAMINATION: CHEST RADIOGRAPH (2 VIEW FRONTAL & LATERAL), 05/20/2021 CLINICAL HISTORY: Cough MQ: XC2_6 EXAM DATE/TIME: 05/20/2021 7:57 PM COMPARISON: PA and lateral chest 04/25/2021. Portable chest 03/11/2017. RESULT: Lines, tubes, and devices: None. Lungs and pleura: Focal density again seen overlying the anterior right sixth rib, likely related to the rib rather than underlying pulmonary abnormality. No pulmonary infiltrates.. No pleural effusion. No pneumothorax. Cardiomediastinal silhouette: Heart size within normal limits. Tortuous aorta. Hilar structures appear normal. Bones and soft tissues: Bilateral surgical clips presumably from mastectomies. Focal density overlying the right anterior sixth rib, similar appearance to PA view 04/25/2021. Mild degenerative changes in the spine. IMPRESSION IMPRESSION: 1. No acute cardiopulmonary abnormalities. 2. Status post bilateral mastectomies presumably. 3. Focal density overlying right lower lung likely callus formation related to a healed or healing fracture in the anterior right sixth rib. Clinical correlation needed. Oblique views could be obtained for confirmation. Senior Cost Analyst: LAVERNE Transcribe Date/Time: May 20 2021 8:02P Dictated by : ADRIÁN FORREST MD This examination was interpreted and the report reviewed and electronically signed by: ADRIÁN FORREST MD on May 20 2021 8:08PM EST [facility] Radiology Study observation (narrative) [facility] XR Chest PA and LateralOrder ed By: Ccf Provider on 05-20-2021 [facility] XR Chest PA and Lateralon IMPRESSION: 1 cm nodular opacity overlying the right lower lung. Consider follow-up. Senior Cost Analyst: LAVERNE Transcribe Date/Time: Apr 25 2021 2:12P Dictated by : LUISITO BATRES MD This examination was interpreted and the report reviewed and electronically signed by: LUISITO BATRES MD on Apr 25 2021 2:15PM [facility] DIVISION OF RADIOLOGY * * *Final Report* * * DATE OF EXAM: Apr 25 2021 2:09PM WOX 5291 - XR CHEST 2V FRONTAL/LAT / PROCEDURE REASON: Cough * * * * Physician Interpretation * * * * EXAMINATION: CHEST RADIOGRAPH (2 VIEW FRONTAL & LATERAL) CLINICAL HISTORY: Cough MQ: XC2_6 EXAM DATE/TIME: 04/25/2021 2:09 PM COMPARISON: No relevant prior studies available. RESULT: Lines, tubes, and devices: None. Lungs and pleura: A 1 cm nodular opacity overlying the right lower lung. A linear opacity noted overlying the mid thoracic spine on lateral view, likely representing atelectasis/scarring/pleural thickening. No consolidation. No lung mass. No pleural effusion. No pneumothorax. Cardiomediastinal silhouette: Normal cardiomediastinal silhouette. Bones and soft tissues: Unremarkable. DIVISION OF RADIOLOGY Provider, Jenny Melani [facility] - 04/25/2021 * * *Final Report* * * DATE OF EXAM: Apr 25 2021 2:09PM WOX 5291 - XR CHEST 2V FRONTAL/LAT / PROCEDURE REASON: Cough * * * * Physician Interpretation * * * * EXAMINATION: CHEST RADIOGRAPH (2 VIEW FRONTAL & LATERAL) CLINICAL HISTORY: Cough MQ: XC2_6 EXAM DATE/TIME: 04/25/2021 2:09 PM COMPARISON: No relevant prior studies available. RESULT: Lines, tubes, and devices: None. Lungs and pleura: A 1 cm nodular opacity overlying the right lower lung. A linear opacity noted overlying the mid thoracic spine on lateral view, likely representing atelectasis/scarring/pleural thickening. No consolidation. No lung mass. No pleural effusion. No pneumothorax. Cardiomediastinal silhouette: Normal cardiomediastinal silhouette. Bones and soft tissues: Unremarkable. IMPRESSION IMPRESSION: 1 cm nodular opacity overlying the right lower lung. Consider follow-up. Senior Cost Analyst: LAVERNE Transcribe Date/Time: Apr 25 2021 2:12P Dictated by : LUISITO BATRES MD This examination was interpreted and the report reviewed and electronically signed by: LUISITO BATRES MD on Apr 25 2021 2:15PM EST [facility] Radiology Study observation (narrative) [facility] XR Chest PA and LateralOrder ed By: Ccf Provider on 04-25-2021 [facility] IgEon 11-19-2019 IgE Qn 13.6 kU/L Normal <114 [facility] Comment on above: Result Comment: Perf orming Laboratory: [facility] [address] [place] [address] Performed By: #### I GEX #### [facility] [address] [place] [address] Abs. Eosinon 11-15-2019 Eosinophils (Bld) [#/Vol] 0.00 thou/cmm Normal 0.00-0.31 [facility] Comment on above: Performed By: #### E OSN #### [facility] [address] [place], [place] [address] Vital Signs Date Time Vital Sign Value Performing Clinician Facility 08-28-2024 18:34-0400 Body mass index (BMI) [Ratio] 20.45 kg/m2 Leticia Harper 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 Work Phone: [facility] 08-28-2024 18:34-0400 Body temperature 97 [degF] Leticia Harper 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 Work Phone: [facility] 08-28-2024 18:34-0400 Body weight 54.05 kg Leticia Harper 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 Work Phone: [facility] 08-28-2024 18:34-0400 Diastolic blood pressure 67 mm[Hg] Leticia Harper 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 Work Phone: [facility] 08-28-2024 18:34-0400 Heart rate 99 /min Leticia Harper 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 Work Phone: [facility] 08-28-2024 18:34-0400 Respiratory rate 16 /min Leticia Harper 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 Work Phone: [facility] 08-28-2024 18:34-0400 SaO2% (BldA) [Mass fraction] 100 % Leticia Harper 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 Work Phone: [facility] 08-28-2024 18:34-0400 Systolic blood pressure 120 mm[Hg] Leticia Harper 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 Work Phone: [facility] 03-28-2024 14:10-0500 Diastolic Blood Pressure Non-Invasive 77 mm[Hg] DR SOPHIE WATSON MD [facility] 03-28-2024 14:10-0500 Heart rate 75 /min DR SOPHIE WATSON MD [address] [place] [address] 03-28-2024 14:10-0500 Respiratory rate 18 /min DR SOPHIE WATSON MD [address] [place] [address] 03-28-2024 14:10-0500 Systolic Blood Pressure Non-Invasive 119 mm[Hg] DR SOPHIE WATSON MD [address] [place] [address] 03-28-2024 13:55-0500 Diastolic Blood Pressure Non-Invasive 70 mm[Hg] DR SOPHIE AWTSON MD [address] [place] [address] 03-28-2024 13:55-0500 Heart rate 84 /min DR SOPHIE WATSON MD [address] [place] [address] 03-28-2024 13:55-0500 Respiratory rate 18 /min DR SOPHIE WATSON MD [address] [place] [address] 03-28-2024 13:55-0500 Systolic Blood Pressure Non-Invasive 120 mm[Hg] DR SOPHIE WATSON MD [address] [place] [address] 03-28-2024 13:40-0500 Diastolic Blood Pressure Non-Invasive 72 mm[Hg] DR SOPHIE WATSON MD [address] [place] [address] 03-28-2024 13:40-0500 Heart rate 82 /min DR SOPHIE WATSON MD [address] [place] [address] 03-28-2024 13:40-0500 Respiratory rate 18 /min DR SOPHIE WATSON MD [address] [place] [address] 03-28-2024 13:40-0500 Systolic Blood Pressure Non-Invasive 115 mm[Hg] DR SOPHIE WATSON MD [address] [place] [address] 03-28-2024 11:00-0500 Body weight 19.43 kg/m2 DR SOPHIE WATSON MD [address] [place] [address] 03-28-2024 10:57-0500 Body height 166.[address] SOPHIE WATSON MD [facility] 03-28-2024 10:57-0500 Body temperature 97.88 [degF] DR SOPHIE WATSON MD [facility] 03-28-2024 10:57-0500 Body weight 53.[address] SOPHIE WATSON MD [facility] 11-15-2023 12:38-0400 Body mass index (BMI) [Ratio] 20.06 kg/m2 Amita Praisler-Wood 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 Work Phone: [facility] 11-15-2023 12:38-0400 Body temperature 97.9 [degF] Amita Praisler-Wood 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 Work Phone: [facility] 11-15-2023 12:38-0400 Body weight 53 kg Amita Praisler-Wood 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 Work Phone: [facility] 11-15-2023 12:38-0400 Diastolic blood pressure 60 mm[Hg] Amita Praisler-Wood 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 Work Phone: [facility] 11-15-2023 12:38-0400 Heart rate 60 /min Amita Praisler-Wood 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 Work Phone: [facility] 11-15-2023 12:38-0400 Respiratory rate 16 /min Amita Praisler-Wood 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 Work Phone: [facility] 11-15-2023 12:38-0400 SaO2% (BldA) [Mass fraction] 98 % Amita Praisler-Wood 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 Work Phone: [facility] 11-15-2023 12:38-0400 Systolic blood pressure 104 mm[Hg] Amita Praisler-Wood 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 Work Phone: [facility] 03-20-2023 10:39-0500 Body height 162.6 cm Mariola Ruiz APRN.GROUND OPERATIONS SUPERINTENDENT Work Phone: [facility] 03-20-2023 10:39-0500 Body weight 53.52 kg Mariola Ruiz APRN.GROUND OPERATIONS SUPERINTENDENT Work Phone: [facility] 03-20-2023 10:39-0500 Diastolic blood pressure 69 mm[Hg] Mariola Ruiz APRN.GROUND OPERATIONS SUPERINTENDENT Work Phone: [facility] 03-20-2023 10:39-0500 Systolic blood pressure 105 mm[Hg] Mariola Ruiz APRN.GROUND OPERATIONS SUPERINTENDENT Work Phone: [facility] 11-11-2022 09:05-0400 Body temperature 97.1 [degF] Dr. Pamela Kingston Work Phone: [facility] 11-11-2022 09:05-0400 Diastolic blood pressure 76 mm[Hg] Dr. Pamela Kingston Work Phone: [facility] 11-11-2022 09:05-0400 Heart rate 63 /min Dr. Pamela Kingston Work Phone: 5(172)[phone] [place] [address] 11-11-2022 09:05-0400 Respiratory rate 16 /min Dr. Pamela Kingston Work Phone: [facility] 11-11-2022 09:05-0400 SaO2% (BldA) [Mass fraction] 97 % Dr. Pamela Kingston Work Phone: [facility] 11-11-2022 09:05-0400 Systolic blood pressure 115 mm[Hg] Dr. Pamela Kingston Work Phone: 6(591)[phone] [place] [address] 11-11-2022 07:44-0400 Body height 165.[address] Pamela Kingston Work Phone: 9(213)[phone] [place] [address] 11-11-2022 07:44-0400 Body mass index (BMI) [Ratio] 19.8 kg/m2 Dr. Pamela Kingston Work Phone: 1(499)[phone] [place] [address] 11-11-2022 07:44-0400 Body weight [address] Pamela Kingston Work Phone: [facility] 07-08-2022 17:26-0500 Body height 162.6 cm Sugey Ball 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 Work Phone: [facility] 07-08-2022 17:26-0500 Body temperature 98.29 [degF] Sugey Ball 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 Work Phone: [facility] 07-08-2022 17:26-0500 Body weight 54.43 kg Sugey Ball 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 Work Phone: [facility] 07-08-2022 17:26-0500 Diastolic blood pressure 65 mm[Hg] Sugey Ball 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 Work Phone: [facility] 07-08-2022 17:26-0500 Heart rate 94 /min Sugey Ball 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 Work Phone: [facility] 07-08-2022 17:26-0500 Respiratory rate 16 /min Sugey Ball 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 Work Phone: [facility] 07-08-2022 17:26-0500 SaO2% (BldA) [Mass fraction] 97 % Sugey Ball 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 Work Phone: [facility] 07-08-2022 17:26-0500 Systolic blood pressure 117 mm[Hg] Sugey Ball 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 Work Phone: [facility] 06-26-2022 18:18-0500 Body height 162.6 cm Leticia Harper 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 Work Phone: [facility] 06-26-2022 18:18-0500 Body temperature 97.5 [degF] Leticia Harper 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 Work Phone: [facility] 06-26-2022 18:18-0500 Body weight 55.79 kg Leticia Harper 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 Work Phone: [facility] 06-26-2022 18:18-0500 Diastolic blood pressure 76 mm[Hg] Leticia Harper 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 Work Phone: [facility] 06-26-2022 18:18-0500 Heart rate 72 /min Leticia Harper 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 Work Phone: [facility] 06-26-2022 18:18-0500 Respiratory rate 18 /min Leticia Harper 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 Work Phone: [facility] 06-26-2022 18:18-0500 SaO2% (BldA) [Mass fraction] 99 % Leticia Harper 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 Work Phone: [facility] 06-26-2022 18:18-0500 Systolic blood pressure 116 mm[Hg] Leticia Harper 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 Work Phone: [facility] 03-19-2022 18:44-0500 Body temperature 98.2 [degF] Brittani May 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 Work Phone: [facility] 03-19-2022 18:44-0500 Body weight 55.43 kg Brittani May 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 Work Phone: [facility] 03-19-2022 18:44-0500 Diastolic blood pressure 82 mm[Hg] Brittani May 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 Work Phone: [facility] 03-19-2022 18:44-0500 Heart rate 76 /min Brittani May 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 Work Phone: [facility] 03-19-2022 18:44-0500 Respiratory rate 18 /min Brittani May 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 Work Phone: [facility] 03-19-2022 18:44-0500 SaO2% (BldA) [Mass fraction] 100 % Brittani May 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 Work Phone: [facility] 03-19-2022 18:44-0500 Systolic blood pressure 128 mm[Hg] Brittani May 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 Work Phone: [facility] 03-10-2022 08:13-0400 Body height 162.6 cm Mariola Ruiz 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 Work Phone: [facility] 03-10-2022 08:13-0400 Body weight 55.34 kg Mariola Ruiz 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 Work Phone: [facility] 03-10-2022 08:13-0400 Diastolic blood pressure 90 mm[Hg] Mariola Lovellie 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 Work Phone: [facility] 03-10-2022 08:13-0400 Systolic blood pressure 120 mm[Hg] Mariola Lovellie 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 Work Phone: [facility] 10-15-2021 12:56-0400 Body temperature 98.1 [degF] Brittani May 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 Work Phone: [facility] 10-15-2021 12:56-0400 Body weight 55.16 kg Brittani May 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 Work Phone: [facility] 10-15-2021 12:56-0400 Diastolic blood pressure 66 mm[Hg] Brittani May 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 Work Phone: [facility] 10-15-2021 12:56-0400 Heart rate 77 /min Brittani May 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 Work Phone: [facility] 10-15-2021 12:56-0400 Respiratory rate 20 /min Brittani May 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 Work Phone: [facility] 10-15-2021 12:56-0400 SaO2% (BldA) [Mass fraction] 98 % Brittani May 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 Work Phone: [facility] 10-15-2021 12:56-0400 Systolic blood pressure 98 mm[Hg] Brittani May 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 Work Phone: [facility] Encounters Encounter Date Encounter Type Care Provider Facility Start: 12-06-2024 ambulatory Homero Friend Facility :[facility] Start: 10-05-2024 End: 10-05-2024 Patient encounter procedure Mia ROSALES -[facility] Work Phone: Start: 10-05-2024 End: 10-05-2024 ambulatory No Primary Care Physician [facility] Work Phone: Start: 09-29-2024 End: 09-29-2024 ambulatory JUAN BABAKKO DO Facility[facility] Start: 08-30-2024 End: 10-30-2024 Follow-up encounter Viola Krueger APRN.GROUND OPERATIONS SUPERINTENDENT Work Phone: [facility] Start: 08-28-2024 End: 08-28-2024 ambulatory LETICIA HARPER Facility:[facility] Start: 08-28-2024 End: 08-28-2024 Office outpatient visit 25 minutes Leticia Harper APRN.GROUND OPERATIONS SUPERINTENDENT Work Phone: [facility] Comment on above: Dysuria (Primary Dx) Start: 05-18-2024 End: 05-18-2024 ambulatory Angie Cortez MA [facility] [place] Start: 05-18-2024 End: 05-18-2024 Patient encounter procedure Angie Cortez [facility] Comment on above: Population Health Na vigation Outreach (Cody MCKEON ) Start: 04-28-2024 ambulatory JUAN HALKO DO Facili ty:[facility] Start: 04-17-2024 End: 04-17-2024 ambulatory JUAN HALKO DO Facility:[facility] Start: 04-17-2024 End: 04-17-2024 Patient encounter procedure JUAN BABAKKO DO [facility] Start: 03-28-2024 End: 03-28-2024 ambulatory JUAN HALKO DO Facility:A Start: 03-28-2024 End: 03-28-[address] SOPHIE WATSON MD [facility] Start: 03-23-2024 End: 03-23-2024 ambulatory JUAN HALKO DO Facility:[facility] Start: 03-23-2024 End: 03-23-[address] SOPHIE WATSON MD [facility] Start: 03-02-2024 End: 03-06-2024 ambulatory JUAN KNOX DO Facility:[facility] Start: 03-02-2024 End: 03-02-2024 ambulatory JUAN AMEZCUAKO DO Facility:[facility] Start: 01-18-2024 End: 01-18-2024 ambulatory JUAN AMEZCUAKO DO [facility] Start: 01-18-2024 End: 01-18-2024 Patient encounter procedure JUAN AMEZCUAKO DO [facility] Start: 01-12-2024 ambulatory JUAN KNOX DO Facili ty:[facility] Start: 01-01-2024 End: 01-01-2024 ambulatory JUAN AMECZUAKO Facility:[facility] Start: 01-01-2024 End: 01-01-2024 Patient encounter procedure JUAN AMEZCUAKO DO [facility] Start: 12-14-2023 ambulatory Mariola Melissathao [facility] [place] Start: 12-14-2023 Patient encounter procedure Mariola Franco MA [facility] [place] Comment on above: Population Health Na vigation Outreach ([place] AWV/HCC and care gaps ) Start: 11-15-2023 End: 11-15-2023 ambulatory [facility] Facility:[facility] Start: 11-15-2023 End: 11-15-2023 Patient encounter procedure Amita Mandujano APRN.GROUND OPERATIONS SUPERINTENDENT Work Phone: [facility] Comment on above: 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, including poison isis, sumac, and oak (Primary Dx) Start: 09-23-2023 ambulatory Mariola Franco [facility] [place] Start: 09-23-2023 Patient encounter procedure Mariola Franco MA [facility] [place] Comment on above: Population Health Na vigation Outreach ([place] AWV/HCC and care gaps ) Start: 03-20-2023 End: 03-20-2023 Patient encounter procedure Mariola Ruiz 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 Work Phone: OB/Gynecology Comment on above: 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 Balaji Kingston Work Phone: [facility] Start: 11-11-2022 End: 11-11-2022 Admission to same day surgery center Dr. Pamela Kingston Work Phone: [facility] Work Phone: Start: 11-11-2022 End: 11-11-[address] Pamela Kingston Work Phone: [facility] Work Phone: Start: 07-08-2022 End: 07-08-2022 Office outpatient visit 15 minutes Sugey Gale APRN.GROUND OPERATIONS SUPERINTENDENT Work Phone: [facility] Comment on above: Recurrent UTI (urina ry tract infection) (Primary Dx) Start: 06-26-2022 End: 06-26-2022 Patient encounter procedure Leticia Harper 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 Work Phone: [facility] Comment on above: UTI symptoms (Primar y Dx) Start: 05-13-2022 End: 05-14-2022 ambulatory JUAN MIKE TANIHOPETON Facility:[facility] Start: 04-01-2022 End: 04-01-2022 Subsequent hospital visit by physician Bone Density [facility] Work Phone: Radiology Comment on above: Encounter for gyneco logic examination for high-risk patient covered by Medicare [Z91.89] Start: 03-19-2022 End: 03-19-2022 Subsequent hospital visit by physician Xr [facility] Work Phone: Radiology Comment on above: Viral illness [B34.9 ] Start: 03-19-2022 End: 03-19-2022 Patient encounter procedure Brittani May 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 Work Phone: [facility] Comment on above: Viral illness (Prima ry Dx); URI, acute Start: 03-10-2022 End: 03-10-2022 Patient encounter procedure Mariola Ruiz APRN.[facility] Work Phone: OB/Gynecology Comment on above: Encounter for gyneco logic examination for high-risk patient covered by Medicare (Primary Dx); Discoloration of vulva; Atrophy of vagina; Vulvar itching; Encounter for screening for osteoporosis; Asymptomatic postmenopausal state Start: 02-05-2022 End: 02-05-2022 ambulatory [facility] Work Phone: Start: 02-05-2022 End: 02-05-2022 Patient encounter procedure [facility], [facility] Start: 10-15-2021 End: 10-15-2021 Patient encounter procedure Brittani May APRN.[facility] Work Phone: [facility] Comment on above: Dermatitis due to pl ant (Primary Dx) Start: 05-20-2021 End: 05-20-2021 Subsequent hospital visit by physician Xr [facility] Work Phone: Radiology Start: 04-25-2021 End: 04-25-2021 Subsequent hospital visit by physician Xr [facility] Work Phone: Radiology Comment on above: Cough [R05.9] Procedures Date Procedure Procedure Detail Performing Clinician Start: 08-28-2024 Culture bacterial quanttative colony count urine Leticia Harper APRN.[facility] Work Phone: Start: 08-28-2024 Urnls dip stick/tablet rgnt auto w/o microscopy Leticia Harper APRN.[facility] Work Phone: Start: 01-18-[address] SOPHIE WATSON MD Comment on above: Summary: 1. Left ventricle: The cavity size is normal. Wall thickness is normal. Systolic function is normal. The estimated ejection fraction is 55-65%. Wall motion is normal; there are no regional wall motion abnormalities. 2. Mitral valve: The leaflets are moderately thickened with bileaflet prolapse. There is mild to moderate posteriory directed regurgitation. 3. Right atrium: The estimated right atrial pressure is 3 mm Hg. Start: 11-11-[address] Work Phone: Start: 07-08-2022 Urnls dip stick/tablet rgnt auto w/o microscopy [facility] Start: 06-26-2022 Urnls dip stick/tablet rgnt auto w/o microscopy [facility] Provider Start: 04-01-2022 Dxa bone density study 1/> sites axial daviel Mariola Ruiz 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 Work Phone: Start: 03-19-2022 Radiologic exam chest 2 views Brittani price 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 Work Phone: Start: 02-05-2022 CT of chest without contrast Start: 05-20-2021 Radiologic exam chest 2 views [facility] Start: 04-25-2021 Radiologic exam chest 2 views Jan marroquin 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 Work Phone: Start: 07-22-2018 Lipid 1996 panel - Serum or Plasma [facility] Work Phone: Start: 05-27-2018 Adult depression screening assessment Brittani May 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 Work Phone: Start: 04-29-2018 Colonoscopy Brittani May 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 Work Phone: History of bilateral mastectomy H/O bilateral mastectomy Dr. Pamela Kingston Work Phone: Comment on above: RIGHT AND THAN LEFT 2 SURGERIES/20 YRS A GO History of bilateral mastectomy S/P bilateral mastectomy JUAN KNOX DO Mastectomy of left breast [place] KRISHAN KNOX DO Mastectomy of right breast M KRAIGJANAY ABILIO DO Open fracture of low er end of radius AND ulna (disorder) JUAN KNOX DO Plan of Treatment Date Care Activity Detail Author Start: 01-24-2028 Urine microalbumin profile [facility] Start: 05-10-2024 Advance Directive Discussion Advance Directive Discussion [facility] Start: 05-10-2024 Medicare Advantage Annual Wellness Visit Medicare Advantage Annual Wellness Visit [facility] Start: 01-09-2024 Covid-19 Vaccine () Covid-19 Vaccine () [facility] Start: 01-09-2024 Influenza vaccination C [facility] Start: 10-04-2023 Covid-19 Vaccine () Covid-19 Vaccine () [facility] Start: 07-23-2023 Lipid 1996 panel - Serum or Plasma Lipid Screening [facility] Start: 07-23-2023 Lipid panel Lipid Screening [facility] Start: 07-23-2023 LIPID SCREEN LIPID SCREEN [facility] Start: 05-10-2023 Advance Directive Discussion Advance Directive Discussion [facility] Start: 05-10-2023 Behavioral Health Screening Behavioral Health Screening [facility] Start: 04-29-2023 Colonoscopy COLONOSCOPY [facility] Start: 04-29-2023 COLORECTAL CANCER SCREENING COLORECTAL CANCER SCREENING [facility] Start: 04-29-2023 Screening for malign ant neoplasm of colon [facility] Start: 01-08-2023 Covid-19 Vaccine () Covid-19 Vaccine () [facility] Start: 01-08-2023 Influenza vaccination Influenza Vacc ine (#1) [facility] Start: 11-11-2022 Patient discharge [facility] Start: 06-04-2022 ANNUAL PCP 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 CHANTAL DISEASE VISIT ANNUAL PCP TEAM CHRONIC DISEASE VISIT [facility] Start: 05-10-2022 ADVANCE DIRECTIVE DISCUSSION ADVANCE DIRECTIVE DISCUSSION [facility] Start: 05-10-2022 DEPRESSION ASSESSMENT DEPRESSION ASS ESSMENT [facility] Start: 03-19-2022 End: 04-02-2022 Influenza virus A and B RNA and SARS-CoV-2 (COVID-19) N gene panel - Respiratory specimen by LAVELLE with probe detection COVID WITH FLUA+B, ROUTINE Microbiology Routine Viral illness URI, acute Expected: 03/19/2022, Expires: 04/02/2022 [facility] Work Phone: Comment on above: Expected: 03/19/2022 , Expires: 04/02/2022 Start: 01-08-2022 Influenza vaccination C [facility] Start: 07-22-2021 DIABETES SCREEN DIABETES SCREEN [facility] Start: 07-22-2021 Diabetes Screening Diabetes Screenin g [facility] Start: 06-20-2021 COVID-19 VACCINE (4 - Booster for Pfizer series) COVID-19 VACCINE (4 - Booster for Pfizer series) [facility] Start: 05-10-2021 ADVANCE DIRECTIVE DISCUSSION ADVANCE DIRECTIVE DISCUSSION [facility] Start: 05-10-2021 DEPRESSION ASSESSMENT DEPRESSION ASS ESSMENT [facility] Start: 04-14-2021 COVID-19 VACCINE (4 - Booster for Pfizer series) COVID-19 VACCINE (4 - Booster for Pfizer series) [facility] Start: 2021 BONE DENSITY BONE DENSITY [facility] Start: 2021 Pneumococcal Vaccine : 65+ (2 of 2 - PCV) Pneumococcal Vaccine: 65+ (2 of 2 - PCV) [facility] Start: 05-27-2019 Adult depression screening assessment DEPRESSION SCREENING [facility] Start: 04-10-2016 Pneumococcal Vaccine : 50+ (2 of 2 - PCV) Pneumococcal Vaccine: 50+ (2 of 2 - PCV) [facility] Start: 04-10-2016 Pneumococcal Vaccine : 65+ (2 - PCV) Pneumococcal Vaccine: 65+ (2 - PCV) [facility] Start: 04-10-2016 PNEUMOCOCCAL: 65+ (2 - PCV) PNEUMOCOCCAL: 65+ (2 - PCV) [facility] Start: 2016 RSV Vaccine (1 - 1-d ose 60+ series) RSV Vaccine (1 - 1-dose 60+ series) [facility] Start: 2006 SHINGRIX VACCINE (1 of 2) SHINGRIX VACCINE (1 of 2) [facility] Start: 2001 COLOGUARD (FIT-DNA) COLOGUARD (FIT-D NA) [facility] Start: [address] COLONOGRAPHY [facility] Start: 2001 FECAL OCCULT BLOOD FECAL OCCULT BLOO D [facility] Start: 2001 Screening for malign ant neoplasm of colon [facility] Start: 2001 SIGMOIDOSCOPY SIGMOIDOSCOPY [facility] Start: 1975 SHINGRIX VACCINE (1 of 2) SHINGRIX VACCINE (1 of 2) [facility] Start: 1974 Anxiety Screening Anxiety Screening [facility] Start: 1974 Depression Screening Depression Scre jazmyne [facility] Start: 1974 HEPATITIS C SCREENING HEPATITIS C [facility] Start: 1974 Hepatitis C screening Hepatitis C [facility] Start: 1974 HIV SCREENING HIV SCREENING [facility] Start: 1974 SPIROMETRY SPIROMETRY [facility] Bacteria identified in Urine by Culture URINE CULTURE Microbiology Routine UTI symptoms Ordered: 06/26/2022 [facility] Work Phone: Comment on above: Ordered: 06/26/2022 Bacteria identified in Urine by Culture URINE CULTURE Microbiology Routine Recurrent UTI (urinary tract infection) 07/08/2022 5:55 PM EST [facility] Work Phone: Bacteria identified in Urine by Culture BACTERIAL CULTURE, URINE Microbiology Routine Dysuria 08/28/2024 6:54 PM EDT [facility] Work Phone: End: 04-09-2023 Dxa bone density study 1/> sites axial skel DXA-AXIAL SKELETON Radiology Routine Encounter for gynecologic examination for high-risk patient covered by Medicare Encounter for screening for osteoporosis Asymptomatic postmenopausal state 1 Occurrences starting 03/10/2022 until 04/09/2023 [facility] Work Phone: Comment on above: 1 Occurrences starti ng 03/10/2022 until 04/09/2023 Patient referral [facility] Work Phone: [facility] Immunizations Immunization Date Immunization Notes Care Provider [facility] 02-10-2024 influenza, high dose seasonal, preservative-free; Translations: [Fluad PF Prefilled Syringe ] DR SOPHIE WATSON MD [facility] 06-05-2023 influenza virus vacc ine, unspecified formulation Amita Mandujano 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 Work Phone: [facility] 02-17-2021 COVID-19 vaccine, ag e 12+ yr (PFIZER-BIONTNumascale - PURPLE TOP) Brittani May APRN.GROUND OPERATIONS SUPERINTENDENT Work Phone: [facility] 08-06-2020 COVID-19 vaccine, ag e 12+ yr (PFIZER-BIONTECH - PURPLE TOP) Brittnai May ELEMENTARY READING SPECIALIST.[facility] Work Phone: [facility] Work Phone: 07-16-2020 COVID-19 vaccine, ag e 12+ yr (PFIZER-BIONTECH - PURPLE TOP) Brittani May 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 Work Phone: [facility] 03-03-2019 influenza virus vacc ine, unspecified formulation [facility] Work Phone: [facility] 01-23-2018 tetanus toxoid, redu laura diphtheria toxoid, and acellular pertussis vaccine, adsorbed Brittani May 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 Work Phone: [facility] 04-10-2015 influenza, injectabl e, quadrivalent, contains preservative Brittani May ELEMENTARY READING SPECIALIST.[facility] Work Phone: [facility] Work Phone: 04-10-2015 pneumococcal polysaccharide vaccine, 23 valent Brittani May ELEMENTARY READING SPECIALIST.[facility] Work Phone: [facility] Work Phone: Payers Date Payer Category Payer Self-pay 2022 Medicare (Managed Care) CODY RODRIGUEZ [facility] [id number] 2022 Unknown [id number] 2021 Medicare [id number] 2021 Private Health Insurance [id number] 2021 Unknown [id number] 2021 Unknown 2016 Unknown ANTHEM BLUE CARD PPO OOS [id number] 2016-Present [phone] [address] [place] [address] PPO [id number] 1956 Unknown [id number] 1956 Unknown [id number]. 62 1956 Unknown [id number]. 62 1956 Unknown [id number]. 62 1956 Unknown [id number] 627 1956 Unknown [id number]. 62 1956 Unknown [id number]. 62 1956 Unknown [id number] 62 1956 Unknown [id number] 627 1956 Unknown [id number] 627 Medicare MEDICARE PART A B [id number] 4 [id number] Unknown [facility] [id number] Unknown [id number] 462 Unknown [id number] 462 Social History Date Type Detail Facility Start: 03-10-2022 End: 11-27-2022 Tobacco smoking status NHIS Never smoked tobacco [facility] Start: 10-15-2021 End: 11-15-2023 Alcohol intake Current drinker of alcohol (finding) [facility] Start: 11-09-2019 End: 03-10-2022 Tobacco Comment 2 parents smoked in children home. No ETS in adulthood. [facility] Start: 1955 Sex Assigned At Female [facility] Start: 11-09-2019 End: 03-10-2022 Tobacco use and exposure Smokeless tobacco non-user [facility] Work Phone: Start: 03-26-2021 End: 03-19-2022 Exposure to SARS-CoV-2 (event) Not sure [facility] Work Phone: Start: 11-05-2022 Tobacco smoking stat us NHIS Unknown if ever smoked [facility] Start: 03-19-2022 End: 03-20-2023 History of Social function [facility] Start: 03-19-2022 End: 03-20-2023 Tobacco use panel [facility] Adult Depression Screening Assessment 0 [facility] Start: 11-07-2019 Gender identity Identifies as female gender (finding) [facility] Start: 11-07-2019 Sexual orientation Heterosexual (geovanna hensley) [facility] NEGATED: Highlighted row [facility] Medical Equipment Procedure Code Equipment Code Equipment Original Text Equipment Identifier Dates EGD, with monitored anesthesia care Gastrointestinal telemetric monitoring system [id number] Start: 11-11-2022 Plate Acu-Loc 2 Standard Silver 49mm Bone 2.3mm Screw Nonsterile Radius - [id number] Start: 01-27-2018 Screw 12mm Bone Hexalobe 3.5mm Nonsterile Elbow - [id number] Start: 01-27-2018 Screw Acu-Loc 2 2.3mm Full Thread Titanium 16mm Bone Lock Nonsterile Hand - [id number] Start: 01-27-2018 Screw Acu-Loc 2 2.3mm Full Thread Gold Titanium 18mm Bone Lock Nonsterile - [id number] Start: 01-27-2018 Screw Acu-Loc 2 2.3mm Full Thread Gold Titanium 20mm Bone Lock Nonsterile - [id number] Start: 01-27-2018 Goals Date Patient Goal Desired Activity /State Functional Status Date Assessment Result Facility 03-28-2024 Functional Status Awake, Resting [facility] 03-28-2024 Functional Status [facility] 03-28-2024 Functional Status Maintained [facility] 11-23-2014 Are you deaf, or do you have serious difficulty hearing No 11/23/2014 6:16 AM Angle Fu RN No [facility] 11-23-2014 Are you blind, or do you have serious difficulty seeing, even when wearing glasses No 11/23/2014 6:16 AM Angle Fu RN No [facility] 11-23-2014 Do you have serious difficulty walking or climbing stairs No 11/23/2014 6:16 AM Angle Fu RN No [facility] 11-23-2014 Do you have difficul ty dressing or bathing No 11/23/2014 6:16 AM Angle Fu RN No [facility] 11-23-2014 Because of a physica l, mental, or emotional condition, do you have difficulty doing errands alone such as visiting a physician's office or shopping No 11/23/2014 6:16 AM Angle Fu RN No [facility] Mental Status Date Assessment Result Facility 03-28-2024 Mental Status Orientation Orie nted x 4, Follows simple commands [facility] 03-28-2024 Mental Status [facility] 11-11-2022 Cognitive function Voice/Name [facility] Work Phone: 11-23-2014 Because of a physica l, mental, or emotional condition, do you have serious difficulty concentrating, remembering, or making decisions No 11/23/2014 6:16 AM EDT Angle Collins RN No [facility] Clinical Notes 12-03-2001 to 10-05-2024 Leticia Harper APRN.NIKKI - 08/28/2024 6:38 PM EDTPatient Angie Duckworth MA - 05/18/2024 12:48 PM EST Note Date & Type Note Facility 10-05-[address] [facility] 08-28-2024 Note HNO ID: [id number] Author: LETICIA HARPER APRN.GROUND OPERATIONS SUPERINTENDENT Service: ? Author Type: Nurse Practitioner Type: Progress Notes Filed: 08/28/2024 18:52 Note Text: PATIENT NAME: Izzy Rosenthal DATE OF : 1955 TODAYS' DATE: 08/28/2024 Recording using [employer] software for draft documentation of the visit was discussed with the patient/authorized sales representative trainee; all questions welcomed and answered. Patient/authorized sales representative trainee agreed to proceed Subjective: The patient is a 69-year-old female with a history of frequent UTIs, presenting with dysuria and increased urinary frequency. History of Present Illness: Urinary Symptoms: - Onset midweek. - Dysuria and increased urinary frequency. - Increased fluid intake to flush it out, leading to more frequent urination. - Recent swimming and hot tub use. - Denies nausea, emesis, or fever. - History of frequent UTIs. Allergies: - Allergic to erythromycin. Review of Systems: Allergies: Allergies: Erythromycin Base GI Upset Comment:Severe abd pain. No diarrhea or emesis. Potato GI Upset [place] Oil GI Upset Tomato GI Upset Tuna Oil GI Upset Past Medical History: PAST MEDICAL HISTORY Diagnosis Date Chiu esophagus Ciro Coto MD. EGD. Elimination diet successful. 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 MASTECTOMY,SIMPLE 09/04/2003 right side REPAIR WRIST FRACTURE Right Family History: FAMILY HISTORY Problem Relation Age of Onset COPD Mother former smoker Graves Disease Mother other (Other) Father Stomach rotted out. COPD Father Breast Cancer Sister Allergies Brother Breast Cancer Maternal Grandmother 65 Asthma Maternal Grandmother Ovarian cancer Paternal cousin 65 Breast Cancer Paternal cousin 50's Tobacco History: Tobacco Use: Never Medications: Current Outpatient Medications Medication Sig Dispense Refill ARNUITY ELLIPTA 200 mcg/actuation inhaler ONE PUFF DAILY FOLLOWED BY [facility] albuterol HFA (PROVENTIL HFA, VENTOLIN HFA) 90 mcg/actuation inhaler Inhale as instructed. lactobacillus comb no.10 (PROBIOTIC) 20 billion cell cap loratadine-pseudoephedrine ER (CLARITIN-D 12 HOUR) 5-120 mg per tablet Take 1 tablet by mouth once daily. triamcinolone (KENALOG) 0.025 % cream Apply 1 application to affected area two times a day. 30 g 0 Vitamin F95-Lzqar Acid 0.5-1 mg tab Take by mouth. Cholecalciferol, Vitamin D3, 25 mcg (1,000 unit) cap Take by mouth. triamcinolone acetonide (NASACORT ALLERGY NASAL) Use in the nose. benzonatate (TESSALON PERLES) 100 mg capsule Take 1 capsule by mouth three times a day as needed for cough. 18 capsule 0 montelukast (SINGULAIR) 10 mg tablet Take 10 mg by mouth once daily. azelastine (ASTELIN) 0.1% nasal spray Use 1 [place] in each nostril twice daily. fluticasone-vilanterol (BREO ELLIPTA) 200-25 mcg/dose inhaler Inhale 1 Inhalation as instructed once daily. Taking 100 instead of 200 pantoprazole sodium (PROTONIX ORAL) Take by mouth. calcium-cholecalciferol, D3, (OSCAL+D 250) 250-125 mg-unit per tablet Take 1 tablet by mouth once daily. 0 COMPOUNDED PRESCRIPTION Takes Replenex 3 pills daily 0 multivitamins(DAILY MULTIVITAMIN TAB) Take one(1) tablet daily. 0 No current facility-administered medications for this visit. Vitals: BP 120/67 Pulse 99 Temp 36.1 ?C (97 ?F) Resp 16 Wt 54.1 kg (119 lb 2.5 oz) LMP 06/10/2006 SpO2 100% BMI 20.45 kg/m? Physical Exam: Physical Exam Vitals reviewed. Constitutional: General: She is not in acute distress. Appearance: She is not ill-appearing, toxic-appearing or diaphoretic. Pulmonary: Effort: Pulmonary effort is normal. Abdominal: Palpations: Abdomen is soft. Tenderness: There is no abdominal tenderness. There is no right CVA tenderness, left CVA tenderness, guarding or rebound. Neurological: Mental Status: She is alert. ASSESSMENT/PLAN: (R30.0) Dysuria (primary encounter diagnosis) Plan: nitrofurantoin monohydrate and macrocrystal (MACROBID) 100 mg capsule UA positive for leukocytes and blood. Will start macrobid and send culture. -Increase fluids. Focus on clears. -Decrease sugary drink intake. Minimize caffeine. -Wipe front to back. No tight clothing. No bubble baths. -Results will be released to [facility] unless there is a need for a change in medication. -If no improvement in 3-5 days please be re-seen by primary care. -Be seen immediately or go to the ER with worsening/warning symptoms. Warning symptoms include: chills, severe flank pain, severe abdominal/pelvic pain, fevers 101 or higher, chest pain, (more content not included)... [facility] 08-28-2024 History of Present illness Narrative Formatting of this note is different fro m the original. Images from the original note were not included. PATIENT NAME: Izzy Rosenthal DATE OF : 1955 TODAYS' DATE: 08/28/2024 Recording using [employer] software for draft documentation of the visit was discussed with the patient/authorized sales representative trainee; all questions welcomed and answered. Patient/authorized sales representative trainee agreed to proceed Subjective: The patient is a 69-year-old female with a history of frequent UTIs, presenting with dysuria and increased urinary frequency. History of Present Illness: Urinary Symptoms: - Onset midweek. - Dysuria and increased urinary frequency. - Increased fluid intake to flush it out, leading to more frequent urination. - Recent swimming and hot tub use. - Denies nausea, emesis, or fever. - History of frequent UTIs. Allergies: - Allergic to erythromycin. Review of Systems: Allergies: Allergies: Erythromycin Base GI Upset Comment:Severe abd pain. No diarrhea or emesis. Potato GI Upset [place] Oil GI Upset Tomato GI Upset Tuna Oil GI Upset Past Medical History: PAST MEDICAL HISTORY Diagnosis Date Chiu esophagus Ciro Coto MD. EGD. Elimination diet successful. 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 MASTECTOMY,SIMPLE 09/04/2003 right side REPAIR WRIST FRACTURE Right Family History: FAMILY HISTORY Problem Relation Age of Onset COPD Mother former smoker Graves Disease Mother other (Other) Father Stomach rotted out. COPD Father Breast Cancer Sister Allergies Brother Breast Cancer Maternal Grandmother 65 Asthma Maternal Grandmother Ovarian cancer Paternal cousin 65 Breast Cancer Paternal cousin 50's Tobacco History: Tobacco Use: Never Medications: Current Outpatient Medications Medication Sig Dispense Refill ARNUITY ELLIPTA 200 mcg/actuation inhaler ONE PUFF DAILY FOLLOWED BY [facility] albuterol HFA (PROVENTIL HFA, VENTOLIN HFA) 90 mcg/actuation inhaler Inhale as instructed. lactobacillus comb no.10 (PROBIOTIC) 20 billion cell cap loratadine-pseudoephedrine ER (CLARITIN-D 12 HOUR) 5-120 mg per tablet Take 1 tablet by mouth once daily. triamcinolone (KENALOG) 0.025 % cream Apply 1 application to affected area two times a day. 30 g 0 Vitamin D80-Wpfts Acid 0.5-1 mg tab Take by mouth. Cholecalciferol, Vitamin D3, 25 mcg (1,000 unit) cap Take by mouth. triamcinolone acetonide (NASACORT ALLERGY NASAL) Use in the nose. benzonatate (TESSALON PERLES) 100 mg capsule Take 1 capsule by mouth three times a day as needed for cough. 18 capsule 0 montelukast (SINGULAIR) 10 mg tablet Take 10 mg by mouth once daily. azelastine (ASTELIN) 0.1% nasal spray Use 1 [place] in each nostril twice daily. fluticasone-vilanterol (BREO ELLIPTA) 200-25 mcg/dose inhaler Inhale 1 Inhalation as instructed once daily. Taking 100 instead of 200 pantoprazole sodium (PROTONIX ORAL) Take by mouth. calcium-cholecalciferol, D3, (OSCAL+D 250) 250-125 mg-unit per tablet Take 1 tablet by mouth once daily. 0 COMPOUNDED PRESCRIPTION Takes Replenex 3 pills daily 0 multivitamins(DAILY MULTIVITAMIN TAB) Take one(1) tablet daily. 0 No current facility-administered medications for this visit. Vitals: BP 120/67 Pulse 99 Temp 36.1 C (97 F) Resp 16 Wt 54.1 kg (119 lb 2.5 oz) LMP 06/10/2006 SpO2 100% BMI 20.45 kg/m Physical Exam: Physical Exam Vitals reviewed. Constitutional: General: She is not in acute distress. Appearance: She is not ill-appearing, toxic-appearing or diaphoretic. Pulmonary: Effort: Pulmonary effort is normal. Abdominal: Palpations: Abdomen is soft. Tenderness: There is no abdominal tenderness. There is no right CVA tenderness, left CVA tenderness, guarding or rebound. Neurological: Mental Status: She is alert. ASSESSMENT/PLAN: (R30.0) Dysuria (primary encounter diagnosis) Plan: nitrofurantoin monohydrate and macrocrystal (MACROBID) 100 mg capsule UA positive for leukocytes and blood. Will start macrobid and send culture. -Increase fluids. Focus on clears. -Decrease sugary drink intake. Minimize caffeine. -Wipe front to back. No tight clothing. No bubble baths. -Results will be released to [facility] unless there is a need for a change in medication. -If no improvement in 3-5 days please be re-seen by primary care. -Be seen immediately or go to the ER with worsening/warning symptoms. Warning symptoms include: chills, severe flank pain, severe abdominal/pelvic pain, fevers 101 or higher, chest pain, and respiratory distress. - See patient instructions for further recommendations. - Pt education along with discharge instructions given to pt - Discussed Red Flag signs and when to go to ER. - Pt agreeable with plan and verbalizes understanding. - Follow up with PCP if symptoms worsen or do not improve in the next 2-3 days. Leticia Harper APRN.GROUND OPERATIONS SUPERINTENDENT 6:39 PM 08/28/24 Disposition The patient was discharged. Medical Decision Making: Level: 4 - Moderate documented in this encounter [facility] 08-28-2024 Instructions Leticia Harper APRN.NIKKI - 08/28/2024 6:38 PM EDT (R30.0) Dysuria (primary encounter diagnosis) Plan: nitrofurantoin monohydrate and macrocrystal (MACROBID) 100 mg capsule UA positive for leukocytes and blood. Will start macrobid and send culture. -Increase fluids. Focus on clears. -Decrease sugary drink intake. Minimize caffeine. -Wipe front to back. No tight clothing. No bubble baths. -Results will be released to [facility] unless there is a need for a change in medication. -If no improvement in 3-5 days please be re-seen by primary care. -Be seen immediately or go to the ER with worsening/warning symptoms. Warning symptoms include: chills, severe flank pain, severe abdominal/pelvic pain, fevers 101 or higher, chest pain, and respiratory distress. Certain foods and beverages might irritate your bladder, including: Coffee, tea and carbonated drinks, even without caffeine. Alcohol. Certain acidic fruits -- oranges, grapefruits, hunter and limes -- and fruit juices. Spicy foods. Tomato-based products. Carbonated drinks. Chocolate. documented in this encounter [facility] 05-18-2024 Note HNO ID: [id number] Author: ANGIE CORTEZ MA Service: ? Author Type: Curtain Cleaner Type: Progress Notes Filed: 05/18/2024 13:06 Note Text: POPULATION HEALTH NAVIGATION OUTREACH Action/May 18, 2024 12:49 PM Cody Avila PCSA ~JANE with Pamela Kingston MD was 2021 Follow up Health Maintenance Due: Annual Medicare Wellness Colorectal Cancer Screening due on 04/29/2023 Influenza Vaccine(1) due on 01/09/2024 Advance Directive Discussion Never done HCC related Outcome: Attempted to reach patient to assist with scheduling needs. Voicemail if full, unable to leave a message. My chart message sent Reason for Outreach Care Gap/HCC or Scheduling Wellness Visits Care Gaps due: Medicare Annual Wellness Visit Colorectal Cancer Screening Flu Vaccine Patient Contacted: Unable or unnecessary to reach patient: Unable to leave message [email or web address] message sent HCC related Navigation Signature: Angie Cortez MA May 18, 2024 12:49 PM [facility] 05-18-2024 History of Present illness Narrative Formatting of this note is different fro m the original. POPULATION HEALTH NAVIGATION OUTREACH Action/May 18, 2024 12:49 PM Cody Avila [facility] ~JANE with Pamela Kingston MD was Pedro 2021 Follow up Health Maintenance Due: Annual Medicare Wellness Colorectal Cancer Screening due on 04/29/2023 Influenza Vaccine(1) due on 01/09/2024 Advance Directive Discussion Never done HCC related Outcome: Attempted to reach patient to assist with scheduling needs. Voicemail if full, unable to leave a message. My chart message sent Reason for Outreach Care Gap/HCC or Scheduling Wellness Visits Care Gaps due: Medicare Annual Wellness Visit Colorectal Cancer Screening Flu Vaccine Patient Contacted: Unable or unnecessary to reach patient: Unable to leave message [email or web address] message sent HCC related Navigation Signature: Angie Cortez MA May 18, 2024 12:49 PM documented in this encounter [facility] 05-18-2024 Note Patient Outreach (ANISA TNAV) IZZY ROSENTHAL ([id number]) 1955 F [place] Date Time Provider Department 05/18/24 ANGIE CORTEZ During your visit today, we recorded the following information about you: Angie Cortez MA 05/18/2024 1:06 PM Signed POPULATION HEALTH NAVIGATION OUTREACH Action/FYI May 18, 2024 12:49 PM Cody Avila PCSA ~JANE with Pamela Kingston MD was Maybrenna2021 Follow up Health Maintenance Due: Annual Medicare Wellness Colorectal Cancer Screening due on 04/29/2023 Influenza Vaccine(1) due on 01/09/2024 Advance Directive Discussion Never done HCC related Outcome: Attempted to reach patient to assist with scheduling needs. Voicemail if full, unable to leave a message. My chart message sent Reason for Outreach Care Gap/HCC or Scheduling Wellness Visits Care Gaps due: Medicare Annual Wellness Visit Colorectal Cancer Screening Flu Vaccine Patient Contacted: Unable or unnecessary to reach patient: Unable to leave message [email or web address] message sent HCC related Navigation Signature: Angie Cortez MA May 18, 2024 12:49 PM Allergies As of Date: 05/18/2024 Noted Allergy Reaction ERYTHROMYCIN BASE 01/18/2002 8 - GI Upset Comments: Severe abd pain. No diarrhea or emesis. POTATO 11/11/2022 8 - GI Upset SALMON OIL 11/05/2022 8 - GI Upset TOMATO 11/11/2022 8 - GI Upset TUNA OIL 11/05/2022 8 - GI Upset Date Reviewed: 11/15/2023 Reviewed by: Eva Waterman - Fully Assessed Reason for Visit: Population Health Navigation Outreach [3910] Cmt: Cody Avila PCSA Prescriptions as of 05/18/2024 - triamcinolone (KENALOG) 0.025 % cream Apply 1 application to affected area two times a day. - albuterol HFA (PROVENTIL HFA, VENTOLIN HFA) 90 mcg/actuation inhaler Inhale as instructed. - Vitamin C29-Zxhhw Acid 0.5-1 mg tab Take by mouth. - Cholecalciferol, Vitamin D3, 25 mcg (1,000 unit) cap Take by mouth. - lactobacillus comb no.10 (PROBIOTIC) 20 billion cell cap - triamcinolone acetonide (NASACORT ALLERGY NASAL) Use in the nose. - benzonatate (TESSALON PERLES) 100 mg capsule Take 1 capsule by mouth three times a day as needed for cough. - CREON 36,000-114,000- 180,000 unit delayed release capsule - montelukast (SINGULAIR) 10 mg tablet Take 10 mg by mouth once daily. - azelastine (ASTELIN) 0.1% nasal spray Use 1 [place] in each nostril twice daily. - fluticasone-vilanterol (BREO ELLIPTA) 200-25 mcg/dose inhaler Inhale 1 Inhalation as instructed once daily. Taking 100 instead of 200 - pantoprazole sodium (PROTONIX ORAL) Take by mouth. - B infantis/B ani/B tanner/B bifid (PROBIOTIC 4X ORAL) Take by mouth. - loratadine-pseudoephedrine ER (CLARITIN-D 12 HOUR) 5-120 mg per tablet Take 1 tablet by mouth once daily. - calcium-cholecalciferol, D3, (OSCAL+D 250) 250-125 mg-unit per tablet Take 1 tablet by mouth once daily. - COMPOUNDED PRESCRIPTION Takes Replenex 3 pills daily - multivitamins(DAILY MULTIVITAMIN TAB) Take one(1) tablet daily. Problem List As Of Date 05/18/2024 Noted Resolved Nonspecific abnormal findings on radiological o*12/03/2001 08/01/2013 Malignant neoplasm of female breast (HCC) [C50.*01/19/2002 Hx of gastroesophageal reflux (GERD) [Z87.19] 08/01/2013 Postmenopausal atrophic vaginitis [N95.2] 08/01/2013 Mild intermittent asthma [J45.20] 04/10/2015 Closed fracture of right distal radius [S52.501*01/25/2018 Rectal prolapse [K62.3] 11/28/2019 Irregular bowel habits [R19.8] 11/28/2019 Urinary tract infection without hematuria [N39.*11/28/2019 Internal complete rectal prolapse with intussus*12/11/2019 Obstructive defecation [K56.41] 12/11/2019 Encounter Status:Closed by ANGIE CORTEZ on 05/18/24 [facility] 04-19-2024 Note . MICRO - Microbiology PROCEDURE: Urine Culture [*1] SOURCE: Urine BODY SITE: COLLECTED DATE/TIME: 04/17/2024 16:54 EST RECEIVED DATE/TIME: 04/17/2024 21:16 EST START DATE/TIME: 04/17/2024 21:16 EST FREE TEXT SOURCE: FINAL REPORTS Final Report [] Verified Date/Time/Personnel: 04/19/2024 07:38 EST 10,000 - 50,000 cfu/ml Multiple bacterial morphotypes present. Probable Contamination. Suggest recollection if clinically indicated. PRELIMINARY REPORTS Preliminary Report [] Verified Date/Time/Personnel: 04/18/2024 08:54 EST Culture results pending. Performing Locations *1: This test was performed at: [facility], [address] [place] [address], [facility] , [facility] 03-28-2024 Hospital Discharge instructions Patient Education 03/28/2024 13:38:58 3- Heart Cath/PCI radial (02/2018) (CUSTOM) HEART CATHETERIZATION (radial) Discharge Instructions DIET Drink plenty of fluids for the next 48 hours to help your kidneys flush the heart cath dye out of your system ACTIVITY For the next 48 hours: Do not deep bend the wrist Do not lift, push, or pull anything over 5 pounds for 5 days Do not use the hand/arm to support your weight when rising from a chair or bed Do not drive For the next 7 days: Do not submerse your procedure site in water Do not swim, wash dishes, or take tub baths You may write, eat, type, and shower WOUND CARE Tomorrow apply a Band-Aid on your procedure site for the next 3-4 days Change the Band-Aid daily or if it gets wet/soiled AFTER YOU GO HOME, CALL YOUR DOCTOR FOR: Any increase in bruising or tenderness from the procedure site Any redness, pus, or other signs of infection at the site A temperature above 100.5 Severe pain at the site DIAL 911 AND RETURN TO THE HOSPITAL FOR: Any bleeding from the procedure site. The site may be bruised or tender, but it should not be bleeding at any time. If your site begins to bleed, hold firm pressure on it and dial 911 to return to the hospital Any increase in swelling at the procedure site. An increase in swelling could mean the area is bleeding under the skin. Hold firm pressure to the site and dial 911 to return to the hospital Document Released: 04/26/2006 Document Revised: 04/12/2013 Document Reviewed: 04/27/2014 ExitCare Patient Information 2014 [employer]. This information is not intended to replace advice given to you by your health care provider. Make sure you discuss any questions you have with your health care provider. 03/28/2024 13:38:18 Moderate Conscious Sedation, Adult, Care After Moderate Conscious Sedation, Adult, Care After These instructions provide you with information about caring for yourself after your procedure. Your health care provider may also give you more specific instructions. Your treatment has been planned according to current medical practices, but problems sometimes occur. Call your health care provider if you have any problems or questions after your procedure. What can I expect after the procedure? After your procedure, it is common: To feel sleepy for several hours. To feel clumsy and have poor balance for several hours. To have poor judgment for several hours. To vomit if you eat too soon. Follow these instructions at home: For at least 24 hours after the procedure: Do not: ?Participate in activities where you could fall or become injured. ?Drive. ?Use heavy machinery. ?Drink alcohol. ?Take sleeping pills or medicines that cause drowsiness. ?Make important decisions or sign legal documents. ?Take care of children on your own. Rest. Eating and drinking Follow the diet recommended by your health care provider. If you vomit: ?Drink water, juice, or soup when you can drink without vomiting. ?Make sure you have little or no nausea before eating solid foods. General instructions Have a responsible adult stay with you until you are awake and alert. Take ywuc-xuo-puagsad and prescription medicines only as told by your health care provider. If you smoke, do not smoke without supervision. Keep all follow-up visits as told by your health care provider. This is important. Contact a health care provider if: You keep feeling nauseous or you keep vomiting. You feel light-headed. You develop a rash. You have a fever. Get help right away if: You have trouble breathing. This information is not intended to replace advice given to you by your health care provider. Make sure you discuss any questions you have with your health care provider. Document Released: 02/14/2014 Document Revised: 04/08/2018 Document Reviewed: 08/15/2016 [employer] Patient Education 2020 [employer]. Follow Up Care 03/23/2024 14:48:07 With:SOPHIE COHN MD Address: [address] [facility] [facility] [address] [place] [address]- [phone] When:04/28/2024 13:30:00 Comments:Follow-up as scheduled [facility] 03-28-2024 Summary of episode note Discharge Instructions Thank you for allowing [facility] to assist you with your healthcare needs. The following is important discharge information regarding your hospital visit. Your Care Team JUAN KNOX DO What to do next Scheduled Follow-Up Appointments Appointment Type When With Where Contact Information StatusCV OV 04/28/2024 01:30 PM EST [facility] Conf[facility] Follow Up Appointments Follow Up with SOPHIE COHN MD When:04/28/2024 01:30 PM EST Where:[address] [facility] [facility] [address] [place] [address]- [phone] Additional Information: Follow-up as scheduled The Following Activity and Diet Have Been Ordered for You Discharge Activity - Ordered -- Lifting Restricted less than 10 pounds, 03/28/24 13:15:00 EST Discharge Diet - Ordered -- Type of Diet: Cardiac, 03/28/24 13:15:00 EST Medications Please ask your primary doctor or pharmacist before taking any other medication not listed, including over the counter drugs, herbal medications, vitamins and or supplements as they may interact with your home medications. What How Much When Instructions Last Dose Unchanged aspirin (aspirin 325 mg oral tablet) 1 tab(s) by mouth Once Unchanged azelastine nasal (azelastine 137 mcg/ inh (0.1%) nasal spray) 2 spray(s) Intranasal Two (2) times a day Unchanged cholecalciferol (Vitamin D3 50 mcg (2000 intl units) oral capsule) 1 cap by mouth Once a day Unchanged chondroitin/ glucosamine/ methylsulfonylmethane (chondroitin/ glucosamine/ methylsulfonylmethane 400 mg-500 mg-83 mg oral tablet) 3 tab by mouth Every day with food Unchanged fluticasone-vilanterol (Breo Ellipta 200 mcg-25 mcg/ inh inhalation powder) 1 puff(s) by inhalation Every day Unchanged herbal/ nutritional product (Probiotic) Unchanged loratadine-pseudoephedrine (Claritin-D 24 Hour oral tablet, extended release) 1 tab(s) by mouth Every day Unchanged Misc Medication by mouth Once a day Unchanged montelukast (montelukast 10 mg oral tablet) 1 tab(s) by mouth Once a day Unchanged multivitamin (Vitamin B Complex 100) Unchanged multivitamin with minerals (Calcium with Magnesium, Vitamins D and K oral tablet) 2 tab(s) by mouth Two (2) times a day Unchanged multivitamin with minerals (Therapeutic Multivitamins with Minerals, Folic Acid, and Essential Fatty Acids oral capsule) 1 cap by mouth Once a day with plenty of water. Take with food. Unchanged pantoprazole (pantoprazole 40 mg oral enteric coated tablet) 1 tab(s) by mouth Two (2) times a day Duration: 90 Days Unchanged triamcinolone nasal (Nasacort Allergy 24HR 55 mcg/ inh nasal spray) 2 spray(s) each nostril Once a day Please take this list to your next doctor s visit. Bring all medications you take, including over the counter medications, herbals and other supplements with you to your doctor s visit. Patients and families are reminded to discard old lists and to update any records with all medication providers or retail pharmacies. Education Materials HEART CATHETERIZATION (radial) Discharge Instructions DIET Drink plenty of fluids for the next 48 hours to help your kidneys flush the heart cath dye out of your system ACTIVITY For the next 48 hours: Do not deep bend the wrist Do not lift, push, or pull anything over 5 pounds for 5 days Do not use the hand/arm to support your weight when rising from a chair or bed Do not drive For the next 7 days: Do not submerse your procedure site in water Do not swim, wash dishes, or take tub baths You may write, eat, type, and shower WOUND CARE Tomorrow apply a Band-Aid on your procedure site for the next 3-4 days Change the Band-Aid daily or if it gets wet/soiled AFTER YOU GO HOME, CALL YOUR DOCTOR FOR: Any increase in bruising or tenderness from the procedure site Any redness, pus, or other signs of infection at the site A temperature above 100.5 Severe pain at the site DIAL 911 AND RETURN TO THE HOSPITAL FOR: Any bleeding from the procedure site. The site may be bruised or tender, but it should not be bleeding at any time. If your site begins to bleed, hold firm pressure on it and dial 911 to return to the hospital Any increase in swelling at the procedure site. An increase in swelling could mean the area is bleeding under the skin. Hold firm pressure to the site and dial 911 to return to the hospital Document Released: 04/26/2006 Document Revised: 04/12/2013 Document Reviewed: 04/27/2014 ExitCare Patient Information 2015 [employer]. This information is not intended to replace advice given to you by your health care provider. Make sure you discuss any questions you have with your health care provider. Moderate Conscious Sedation, Adult, Care After These instructions provide you with information about caring for yourself after your procedure. Your health care provider may also give you more specific instructions. Your treatment has been planned according to current medical practices, but problems sometimes occur. Call your health care provider if you have any problems or questions after your procedure. What can I expect after the procedure? After your procedure, it is common: To feel sleepy for several hours. To feel clumsy and have poor balance for several hours. To have poor judgment for several hours. To vomit if you eat too soon. Follow these instructions at home: For at least 24 hours after the procedure: Do not: ? Participate in activities where you could fall or become injured. ? Drive. ? Use heavy machinery. ? Drink alcohol. ? Take sleeping pills or medicines that cause drowsiness. ? Make important decisions or sign legal documents. ? Take care of children on your own. Rest. Eating and drinking Follow the diet recommended by your health care provider. If you vomit: ? Drink water, juice, or soup when you can drink without vomiting. ? Make sure you have little or no nausea before eating solid foods. General instructions Have a responsible adult stay with you until you are awake and alert. Take mttb-nea-ljbcjiy and prescription medicines only as told by your health care provider. If you smoke, do not smoke without supervision. Keep all follow-up visits as told by your health care provider. This is important. Contact a health care provider if: You keep feeling nauseous or you keep vomiting. You feel light-headed. You develop a rash. You have a fever. Get help right away if: You have trouble breathing. This information is not intended to replace advice given to you by your health care provider. Make sure you discuss any questions you have with your health care provider. Document Released: 02/14/2014 Document Revised: 04/08/2018 Document Reviewed: 08/15/2016 Elsevier Patient Education 2020 [employer] Additional Information VACCINATE! IT SAVES LIVES! Members of the community who have not yet received the COVID-19 vaccine and would like to receive it can visit one of [facility] vaccine clinics. There are many vaccine clinic locations within the [facility]. For locations and available times, please visit https://gettheshot.coronavirus.[place].gov/. It is important to note that some COVID mobile vaccine clinics are held outdoors and may be canceled in rainy or stormy conditions. To learn more about pediatric vaccinations (ages 5-11), we invite you to visit the [employer] webpage. https://www.[facility].org/pages/2019-N hvol-Lguozddheqo-Fqpmtqnyci-Asked-Questions .html To learn more about the COVID-19 vaccine, we invite you to visit the CDC website for a list of frequently asked questions.https://www.cdc.gov/coronavirus/2 019-ncov/vaccines/faq.html [facility] Patient Portal Access Instructions: Stay connected with your healthcare team and access your personal medical information anytime with the [facility] Patient Portal. Please follow the directions below to create your [facility] account: 1.Access the email account you provided upon registration to the hospital/physician office.2.Look for an invitation email from [facility].3.Open the email and access the invitation link: Accept Invitation to [facility].4.Fill in the required hazel to create your account. To access your account, visit [email or web address]. Click the blue button labeled Access Patient Portal and then log in with the username and password that you created in the steps above. You will be able to view your test results, lab results, a summary of your visits, upcoming appointments and more. There is also a convenient messaging option where you can send secure messages to your provider. In addition, you will have the ability to download any documents or summaries to your computer and/or send the information securely to a physician. Remember that your healthcare information is confidential, so carefully consider who you will allow to register on the [facility] Patient Portal for access to your information. You can also access the [facility] on the [facility] jagjit. Simply click on Patient Portal and then log into your account. If you would like to receive a full copy of your medical records, please contact the [facility] Medical Records Department by calling [phone], Wednesday through Wednesday between 8 a.m. and 4:30 p.m. HOW TO SAFELY DISPOSE OF PRESCRIPTION MEDICATIONS Please use one of the following methods to safely dispose of your unused medications. 1.Use a drug disposal kit: the drug disposal pouch allows you to safely discard your old and unused drugs. Ask your nurse to give you one when you are discharged.2.Visit a local take-back location: Many local pharmacies and police departments have programs that collect old and unwanted prescription drugs. Call your local pharmacy or go to http://HouseTrip/3M0Kd8e to find one close to you.3.Make use of household items: Use cat litter or old coffee grounds to dispose medications if other options are not available. Mix your drugs with these household products, seal them in an airtight container and throw it into the garbage. Call [facility]: [phone] to be sure your drugs can be disposed of in this way. Some medicines may require a different approach.4.Never flush your medications down the toilet. IF YOU HAVE BEEN PRESCRIBED AN OPIOID FOR PAIN If you have been prescribed an opioid (such as hydrocodone, oxycodone or morphine), it is critical to understand the possible side effects and risks of opioid pain medications. Even when taken as directed, opioids can have several side effects including: Tolerance, meaning you might need to take more of a medication for the same pain relief. Nausea, vomiting and/or constipation. Sleepiness, dizziness, dry mouth, confusion, depression or itching. Physical dependence, meaning you have withdrawal symptoms when a medication is stopped, can develop within a few days. KNOW YOUR RESPONSIBILITIES It is important to know exactly how much and how often to take the opioid pain medications you are prescribed. Never take opioids in higher amounts or more often than prescribed. Do not combine opioids with alcohol or other drugs that cause drowsiness, such as benzodiazepines, also known as benzos, including diazepam and alprazolam, muscle relaxants or sleep aids. Never sell or share prescription opioids. This is illegal. Store opioids in a secure place and out of reach of others (including children, family, friends and visitors). The last page of this document has been signed and retained as a CHART COPY. Signatures Patient Education Materials 3- Heart Cath/PCI radial (02/2018) (CUSTOM) Moderate Conscious Sedation, Adult, Care After Medication Leaflets My discharge plan and instructions have been reviewed and explained to me and I,IZZY ROSENTHAL understand my current condition and have read and understand these discharge instructions. I have received a written copy of the plan/instructions. If I have questions, I am aware that I should contact my doctor. 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 03-28-2024 Discharge summary Date of Service 03/28/2024 Discharge Diagnosis 1. Chronic cough 2. Chronic HFpEF 3. Mild to moderate MR Hospital Course 68-year-old female with PMH of chronic cough, chronic HFpEF, mild to moderate MR presented for elective cardiac cath to rule out cardiac etiology of cough. Cardiac cath was suggestive of normal coronaries. LVEDP was 4 Medical management and follow-up as an outpatient in the clinic. Allergies Potatoes Stomach upset [place] Stomach upset Tomatoes Stomach ache Tuna fish Stomach upset erythromycin Stomach ache Consults No qualifying data available. Objective Vitals and Measurements T: 36.6 C (Oral) HR: 74 RR: 18 BP: 131/87 SpO2: 99% HT: 166.4 cm WT: 53.8 kg WT: 53.8 kg BMI: 19.43 Weight Current Weight Dosing Weight: 53.8 kg (03/28/24) Current Weight: 53.8 kg (03/28/24) General: AAOX3, NAD HEENT: Anicteric sclera, MMM Neck: Trachea midline, no JVD appreciated CVS: RRR, normal S1/S2, no murmurs/rubs/gallops Lung: CTAB, no wheezes/rhonchi/rales Abd: Soft, NT/ND Extrem: WWP, no LE edema Skin: Warm, Intact Neuro: AAOX3, spontaneous movement of all extremities Psych: Appropriate mood & affect Code Status No qualifying data available. Admission Date 03/28/2024 Discharge Date 03/28/2024 Medications Unchanged aspirin (aspirin 325 mg oral tablet)1 tab(s) by mouth once. azelastine nasal (azelastine 137 mcg/inh (0.1%) nasal spray)2 spray(s) Intranasal two (2) times a day. cholecalciferol (Vitamin D3 50 mcg (2000 intl units) oral capsule)1 cap by mouth once a day. chondroitin/glucosamine/methylsulfonylmetha ne (chondroitin/glucosamine/methylsulfonylmeth ane 400 mg-500 mg-83 mg oral tablet)3 tab by mouth every day. with food. fluticasone-vilanterol (Breo Ellipta 200 mcg-25 mcg/inh inhalation powder)1 puff(s) by inhalation every day. herbal/nutritional product (Probiotic) loratadine-pseudoephedrine (Claritin-D 24 Hour oral tablet, extended release)1 tab(s) by mouth every day. Misc Medicationby mouth once a day. montelukast (montelukast 10 mg oral tablet)1 tab(s) by mouth once a day. multivitamin (Vitamin B Complex 100) multivitamin with minerals (Calcium with Magnesium, Vitamins D and K oral tablet)by mouth two (2) times a day. multivitamin with minerals (Therapeutic Multivitamins with Minerals, Folic Acid, and Essential Fatty Acids oral capsule)1 cap by mouth once a day. with plenty of water. Take with food.. pantoprazole (pantoprazole 40 mg oral enteric coated tablet)1 tab(s) by mouth two (2) times a day for 90 Days. Refills: 1. triamcinolone nasal (Nasacort Allergy 24HR 55 mcg/inh nasal spray)2 spray(s) each nostril once a day. Follow Up Appointments No qualifying data available. Follow Up Labs/Studies Discharge Labs No Follow-up Labs Discharge Studies No Follow-up Studies Discharge Diet Discharge Diet - Ordered -- Type of Diet: Cardiac, 03/28/24 13:15:00 EST Discharge Activity Discharge Activity - Ordered -- Lifting Restricted less than 10 pounds, 03/28/24 13:15:00 EST Condition on Discharge Stable Readmission Risk/Palliative Score No qualifying data available. Discharge Disposition Home Digitally Signed by JASMINA FRANKLIN MD on 03/28/2024 01:17 PM Digitally Signed by SOPHIE COHN MD [facility] 03-04-2024 Note . MICRO - Microbiology PROCEDURE: Urine Culture [*1] SOURCE: Urine, Clean Catch BODY SITE: COLLECTED DATE/TIME: 03/02/2024 12:00 EDT RECEIVED DATE/TIME: 03/03/2024 07:54 EDT START DATE/TIME: 03/03/2024 07:55 EDT FREE TEXT SOURCE: FINAL REPORTS Final Report [] Verified Date/Time/Personnel: 03/04/2024 12:08 EDT <10,000 cfu/ml. No Significant growth. Sensitivity not indicated. Performing Locations *1: This test was performed at: [facility], [address] [place] [address], [phone] , [facility] 01-18-2024 Note Exam Date Time Procedure Performing Provider Status 01/18/24 8:26 AM Echocardiogram, Adult - CV Auth (Verified) [facility] 08-06-2024 NoteHNO ID: [id number] Author: MARIOLA FRANCO MA Service: ? Author Type: Curtain Cleaner Type: Progress Notes Filed: 12/14/2023 12:57 Note Text: POPULATION HEALTH NAVIGATION OUTREACH Action/FYI Spoke to patient about scheduling AWV and HCC gaps. Patient is at school but will call back to schedule. Sent My chart with my direct number Reason for Outreach Care Gap/HCC or Scheduling Wellness Visits Care Gaps due: Annual Wellness Exam Colorectal Cancer Screening Advance DIrectives Patient Contacted: Spoke to patient/parent/or legal guardian Patient identified by name and : Yes Care Gap/HCC/Scheduling Wellness actions taken: Patient declined: Patient requested call back / will call back (MyChart Sent) Navigation Signature: Mariola Franco MA December 14, 2023 12:56 [facility]08-06-2024 History of Present illness Narrative* Mariola Franco MA - 12/14/2023 12:55 PM EDT POPULATION HEALTH NAVIGATION OUTREACH Action/FYI Spoke to patient about scheduling AWV and HCC gaps. Patient is at school but will call back to schedule. Sent My chart with my direct number Reason for Outreach Care Gap/HCC or Scheduling Wellness Visits Care Gaps due: Annual Wellness Exam Colorectal Cancer Screening Advance DIrectives Patient Contacted: Spoke to patient/parent/or legal guardian Patient identified by name and : Yes Care Gap/HCC/Scheduling Wellness actions taken: Patient declined: Patient requested call back / will call back (MyChart Sent) Navigation Signature: Mariola Franco MA December 14, 2023 12:56 PM [facility] NotePatient Outreach (NETNAV) IZZY ROSENTHAL ([id number]) 1955 [facility] Date Time Provider Department 12/14/23 MARIOLA FRANCO During your visit today, we recorded the following information about you: Mariola Franco MA 12/14/2023 12:57 PM Signed POPULATION HEALTH NAVIGATION OUTREACH Action/FYI Spoke to patient about scheduling AWV and HCC gaps. Patient is at school but will call back to schedule. Sent My chart with my direct number Reason for Outreach Care Gap/HCC or Scheduling Wellness Visits Care Gaps due: Annual Wellness Exam Colorectal Cancer Screening Advance DIrectives Patient Contacted: Spoke to patient/parent/or legal guardian Patient identified by name and : Yes Care Gap/HCC/Scheduling Wellness actions taken: Patient declined: Patient requested call back / will call back (MyChart Sent) Navigation Signature: Mariola Franco MA December 14, 2023 12:56 PM Allergies As of Date: 12/14/2023 Noted Allergy Reaction ERYTHROMYCIN BASE 01/18/2002 8 - GI Upset Comments: Severe abd pain. No diarrhea or emesis. POTATO 11/11/2022 8 - GI Upset SALMON OIL 11/05/2022 8 - GI Upset TOMATO 11/11/2022 8 - GI Upset TUNA OIL 11/05/2022 8 - GI Upset Date Reviewed: 11/15/2023 Reviewed by: Eva Waterman - Fully Assessed Reason for Visit: Population Health Navigation Outreach [3910] Cmt: Cody AWV/HCC and care gaps Prescriptions as of 12/14/2023 - triamcinolone (KENALOG) 0.025 % cream Apply 1 application to affected area two times a day. - albuterol HFA (PROVENTIL HFA, VENTOLIN HFA) 90 mcg/actuation inhaler Inhale as instructed. - Vitamin H16-Dtufh Acid 0.5-1 mg tab Take by mouth. - Cholecalciferol, Vitamin D3, 25 mcg (1,000 unit) cap Take by mouth. - lactobacillus comb no.10 (PROBIOTIC) 20 billion cell cap - triamcinolone acetonide (NASACORT ALLERGY NASAL) Use in the nose. - benzonatate (TESSALON PERLES) 100 mg capsule Take 1 capsule by mouth three times a day as needed for cough. - CREON 36,000-114,000- 180,000 unit delayed release capsule - montelukast (SINGULAIR) 10 mg tablet Take 10 mg by mouth once daily. - azelastine (ASTELIN) 0.1% nasal spray Use 1 [place] in each nostril twice daily. - fluticasone-vilanterol (BREO ELLIPTA) 200-25 mcg/dose inhaler Inhale 1 Inhalation as instructed once daily. Taking 100 instead of 200 - pantoprazole sodium (PROTONIX ORAL) Take by mouth. - B infantis/B ani/B tanner/B bifid (PROBIOTIC 4X ORAL) Take by mouth. - loratadine-pseudoephedrine ER (CLARITIN-D 12 HOUR) 5-120 mg per tablet Take 1 tablet by mouth once daily. - calcium-cholecalciferol, D3, (OSCAL+D 250) 250-125 mg-unit per tablet Take 1 tablet by mouth once daily. - COMPOUNDED PRESCRIPTION Takes Replenex 3 pills daily - multivitamins(DAILY MULTIVITAMIN TAB) Take one(1) tablet daily. Problem List As Of Date 12/14/2023 Noted Resolved Nonspecific abnormal findings on radiological o*12/03/2001 08/01/2013 Malignant neoplasm of female breast (HCC) [C50.*01/19/2002 Hx of gastroesophageal reflux (GERD) [Z87.19] 08/01/2013 Postmenopausal atrophic vaginitis [N95.2] 08/01/2013 Mild intermittent asthma [J45.20] 04/10/2015 Closed fracture of right distal radius [S52.501*01/25/2018 Rectal prolapse [K62.3] 11/28/2019 Irregular bowel habits [R19.8] 11/28/2019 Urinary tract infection without hematuria [N39.*11/28/2019 Internal complete rectal prolapse with intussus*12/11/2019 Obstructive defecation [K56.41] 12/11/2019 Encounter Status:Closed by MARIOLA FRANCO on 12/14/23[facility] 11-15-2023 NoteHNO ID: [id number] Author: AMITA MANDUJANO APRN.GROUND [employer]PERATIONS SUPERINTENDENT Service: ? Author Type: Nurse Practitioner Type: Progress Notes Filed: 11/15/2023 12:56 Note Text: Subjective Rash Pertinent negatives include no congestion, cough, fever, shortness of breath or sore throat. Izzy Rosenthal is a 68 year old female who presents with poison isis on her hands and face and neck for the past 3 days. She was exposed to poison isis while picking blueberries with her daughter. She has used isis dry at home which helps but she is still having spread of rash. She denies pain or fever. She denies any respiratory symptoms, sore throat, shortness of breath. Review of Systems Constitutional: Negative for chills and fever. HENT: Negative for congestion and sore throat. Respiratory: Negative for cough, shortness of breath and wheezing. Cardiovascular: Negative. Skin: Positive for itching and rash. BP 104/60 Pulse 60 Temp 36.6 ?C (97.9 ?F) Resp 16 Wt 53 kg (116 lb 13.5 oz) LMP 06/10/2006 SpO2 98% BMI 20.06 kg/m? PAST MEDICAL HISTORY Diagnosis Date Chiu esophagus Ciro Coto MD. EGD. Elimination diet successful. 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 MASTECTOMY,SIMPLE 09/04/2003 right side REPAIR WRIST FRACTURE Right ALLERGIES Erythromycin Base, Potato, [place] Oil, Tomato, and Tuna Oil MEDICATIONS albuterol HFA (PROVENTIL HFA, VENTOLIN HFA) 90 mcg/actuation inhaler Inhale as instructed. Vitamin H14-Vtgal Acid 0.5-1 mg tab Take by mouth. Cholecalciferol, Vitamin D3, 25 mcg (1,000 unit) cap Take by mouth. lactobacillus comb no.10 (PROBIOTIC) 20 billion cell cap triamcinolone acetonide (NASACORT ALLERGY NASAL) Use in the nose. CREON 36,000-114,000- 180,000 unit delayed release capsule montelukast (SINGULAIR) 10 mg tablet Take 10 mg by mouth once daily. azelastine (ASTELIN) 0.1% nasal spray Use 1 [place] in each nostril twice daily. fluticasone-vilanterol (BREO ELLIPTA) 200-25 mcg/dose inhaler Inhale 1 Inhalation as instructed once daily. Taking 100 instead of 200 pantoprazole sodium (PROTONIX ORAL) Take by mouth. loratadine-pseudoephedrine ER (CLARITIN-D 12 HOUR) 5-120 mg per tablet Take 1 tablet by mouth once daily. calcium-cholecalciferol, D3, (OSCAL+D 250) 250-125 mg-unit per tablet Take 1 tablet by mouth once daily. COMPOUNDED PRESCRIPTION Takes Replenex 3 pills daily multivitamins(DAILY MULTIVITAMIN TAB) Take one(1) tablet daily. predniSONE (DELTASONE) 10 mg tablet Take 4 tabs daily for 3 days, then 2 tabs daily for 3 days, then 1 tab daily for 3 days with food. triamcinolone (KENALOG) 0.025 % cream Apply 1 application to affected area two times a day. benzonatate (TESSALON PERLES) 100 mg capsule Take 1 capsule by mouth three times a day as needed for cough. B infantis/B ani/B tanner/B bifid (PROBIOTIC 4X ORAL) Take by mouth. (Patient not taking: Reported on 03/20/2023) FAMILY HISTORY Problem Relation Age of Onset COPD Mother former smoker Graves Disease Mother other (Other) Father Stomach rotted out. COPD Father Breast Cancer Sister Allergies Brother Breast Cancer Maternal Grandmother 65 Asthma Maternal Grandmother Ovarian cancer Paternal cousin 65 Breast Cancer Paternal cousin 50's Social History Tobacco Use Smoking status: Never Smokeless tobacco: Never Tobacco comments: 2 parents smoked in children home. No ETS in adulthood. Vaping Use Vaping Use: Never used Substance Use Topics Alcohol use: Yes Comment: rare Drug use: No Objective Physical Exam Vitals and nursing note reviewed. Constitutional: Appearance: Normal appearance. Cardiovascular: Rate and Rhythm: Normal rate and regular rhythm. Heart sounds: Normal heart sounds. Pulmonary: Effort: Pulmonary effort is normal. No respiratory distress. Breath sounds: Normal breath sounds. No wheezing or rales. Skin: General: Skin is warm and dry. Findings: Erythema and rash present. Neurological: Mental Status: She is alert. ASSESSMENT/PLAN: 1. Dermatitis due to plants, including poison isis, sumac, and oak - ICD9: 692.6, ICD10: L25.5 - Oral Steriod tx -Prednisone taper - Topical steriod tx with Rx for steriod cream/ointment- see orders - discussed skin care of rash - follow up if symptoms persist or worsen. - PREDNISONE 10 MG TABLET - TRIAMCINOLONE ACETONIDE 0.025 % TOPICAL CREAM - Follow-up with your PCP in 3-5 days if symptoms have not improved or sooner if symptoms worsen - Discussed red flags and need for immediate medical evaluation if any occur. - Discussed supportive care treatment with fluids, rest and analges (more content not included)...[facility]07-08-2024 History of Present illness Narrative* Amita Mandujano APRN.[facility] - 11/15/2023 12:52 PM EDT Subjective Rash Pertinent negatives include no congestion, cough, fever, shortness of breath or sore throat. Izzy Rosenthal is a 68 year old female who presents with poison isis on her hands and face and neck for the past 3 days. She was exposed to poison isis while picking blueberries with her daughter. She has used isis dry at home which helps but she is still having spread of rash. She denies pain or fever. She denies any respiratory symptoms, sore throat, shortness of breath. Review of Systems Constitutional: Negative for chills and fever. HENT: Negative for congestion and sore throat. Respiratory: Negative for cough, shortness of breath and wheezing. Cardiovascular: Negative. Skin: Positive for itching and rash. BP 104/60 Pulse 60 Temp 36.6 C (97.9 F) Resp 16 Wt 53 kg (116 lb 13.5 oz) LMP 06/10/2006 SpO2 98% BMI 20.06 kg/m PAST MEDICAL HISTORY Diagnosis Date Chiu esophagus Ciro Coto MD. EGD. Elimination diet successful. 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 MASTECTOMY,SIMPLE 09/04/2003 right side REPAIR WRIST FRACTURE Right ALLERGIES Erythromycin Base, Potato, [place] Oil, Tomato, and Tuna Oil MEDICATIONS albuterol HFA (PROVENTIL HFA, VENTOLIN HFA) 90 mcg/actuation inhaler Inhale as instructed. Vitamin Z32-Hzcfa Acid 0.5-1 mg tab Take by mouth. Cholecalciferol, Vitamin D3, 25 mcg (1,000 unit) cap Take by mouth. lactobacillus comb no.10 (PROBIOTIC) 20 billion cell cap triamcinolone acetonide (NASACORT ALLERGY NASAL) Use in the nose. CREON 36,000-114,000- 180,000 unit delayed release capsule montelukast (SINGULAIR) 10 mg tablet Take 10 mg by mouth once daily. azelastine (ASTELIN) 0.1% nasal spray Use 1 [place] in each nostril twice daily. fluticasone-vilanterol (BREO ELLIPTA) 200-25 mcg/dose inhaler Inhale 1 Inhalation as instructed once daily. Taking 100 instead of 200 pantoprazole sodium (PROTONIX ORAL) Take by mouth. loratadine-pseudoephedrine ER (CLARITIN-D 12 HOUR) 5-120 mg per tablet Take 1 tablet by mouth once daily. calcium-cholecalciferol, D3, (OSCAL+D 250) 250-125 mg-unit per tablet Take 1 tablet by mouth once daily. COMPOUNDED PRESCRIPTION Takes Replenex 3 pills daily multivitamins(DAILY MULTIVITAMIN TAB) Take one(1) tablet daily. predniSONE (DELTASONE) 10 mg tablet Take 4 tabs daily for 3 days, then 2 tabs daily for 3 days, then 1 tab daily for 3 days with food. triamcinolone (KENALOG) 0.025 % cream Apply 1 application to affected area two times a day. benzonatate (TESSALON PERLES) 100 mg capsule Take 1 capsule by mouth three times a day as needed for cough. B infantis/B ani/B tanner/B bifid (PROBIOTIC 4X ORAL) Take by mouth. (Patient not taking: Reported on 03/20/2023) FAMILY HISTORY Problem Relation Age of Onset COPD Mother former smoker Graves Disease Mother other (Other) Father Stomach rotted out. COPD Father Breast Cancer Sister Allergies Brother Breast Cancer Maternal Grandmother 65 Asthma Maternal Grandmother Ovarian cancer Paternal cousin 65 Breast Cancer Paternal cousin 50's Social History Tobacco Use Smoking status: Never Smokeless tobacco: Never Tobacco comments: 2 parents smoked in children home. No ETS in adulthood. Vaping Use Vaping Use: Never used Substance Use Topics Alcohol use: Yes Comment: rare Drug use: No Objective Physical Exam Vitals and nursing note reviewed. Constitutional: Appearance: Normal appearance. Cardiovascular: Rate and Rhythm: Normal rate and regular rhythm. Heart sounds: Normal heart sounds. Pulmonary: Effort: Pulmonary effort is normal. No respiratory distress. Breath sounds: Normal breath sounds. No wheezing or rales. Skin: General: Skin is warm and dry. Findings: Erythema and rash present. Neurological: Mental Status: She is alert. ASSESSMENT/PLAN: 1. Dermatitis due to plants, including poison isis, sumac, and oak - ICD9: 692.6, ICD10: L25.5 - Oral Steriod tx -Prednisone taper - Topical steriod tx with Rx for steriod cream/ointment- see orders - discussed skin care of rash - follow up if symptoms persist or worsen. - PREDNISONE 10 MG TABLET - TRIAMCINOLONE ACETONIDE 0.025 % TOPICAL CREAM - Follow-up with your PCP in 3-5 days if symptoms have not improved or sooner if symptoms worsen - Discussed red flags and need for immediate medical evaluation if any occur. - Discussed supportive care treatment with fluids, rest and analgesia. - Discussed expected course of illness Amita Mandujano APRN.CNP documented in this encounterDo[facility]07-[facility] Instructions* Patient Instructions* Amita Mandujano APRN.CNP - 11/15/2023 12:52 PM EDT ASSESSMENT/PLAN: 1. Dermatitis due to plants, including poison isis, sumac, and oak - ICD9: 692.6, ICD10: L25.5 - Oral Steriod tx -Prednisone taper - Topical steriod tx with Rx for steriod cream/ointment- see orders - discussed skin care of rash - follow up if symptoms persist or worsen. - PREDNISONE 10 MG TABLET - TRIAMCINOLONE ACETONIDE 0.025 % TOPICAL CREAM - Follow-up with your PCP in 3-5 days if symptoms have not improved or sooner if symptoms worsen - Discussed red flags and need for immediate medical evaluation if any occur. - Discussed supportive care treatment with fluids, rest and analgesia. - Discussed expected course of illness Amita Mandujano APRN.CNP [facility] PATIENT INFO POISON ISIS INTRODUCTION When the skin comes in direct contact with an irritating or allergy-causing substance, contact dermatitis can develop. Exposure to poison isis, poison oak, and poison sumac cause more cases of allergic contact dermatitis than all other plant families combined. People of all ethnicities and skin types are at risk for developing poison isis dermatitis. The severity of the reaction tends to decrease with age, especially in people who have had mild reactions inthe past. People in occupations such as firefighting, forestry, and farming are at a higher risk ofpoison isis dermatitis because of repeated exposure to toxic plants. POISON ISIS CAUSES Poison isis, poison oak, and poison sumac plants all contain a compound called urushiol, which is a light, colorless oil that is found on the fruit, leaves, stem, root, and sap of the plant. When urushiol is exposed to air, it turns brown and the plant leaves develop small black spots. There are several ways that you can be exposed to urushiol: By touching the sap or rubbing against the leaves of the toxic plant By touching something that has urushiol on it, such as animal fur or garden tools By breathing in smoke when toxic plants are burned Ginkgo fruit and the skin of mangoes also contain urushiol and can produce symptoms similar to poison isis dermatitis. IDENTIFYING POISON ISIS Leaves of three, let them be is a phrase often used to identify plants that cause poison isis dermatitis. Generally, poison isis and poison oak have three leaves with flowering branches on a single stem. Poison sumac has five, seven, or more leaves that angle upward toward the top of the stem. Some types of poison isis produce a green or off-white fruit in [place], and in some cases, black dots form on the plants' leaves. It is not always possible to identify the plant by the leaves alone since the appearance can vary depending upon the season, growth cycle, region, and climate. Poison isis, oak, and sumac plants grow in many areas across the [facility] and throughout the world. [place] of the [facility], poison isis commonly grows as a climbing vine. In the [place] area and west, poison isis tends to grow low to the ground as a shrub. Poison oak most often grows west of the [facility], and poison sumac inhabits boggy areas in the southeastern part of the [facility]. The plants are not usually found in areas at high elevations or in desert climates. POISON ISIS SIGNS AND SYMPTOMS After contact with urushiol, approximately 50 percent of people develop signs and symptoms of poison isis dermatitis. The symptoms and severity differ from person to person. The most common signs and symptoms of poison isis dermatitis are: Intense itching Skin swelling Skin redness These symptoms usually develop within four hours to four days after exposure to the urushiol. Afterthe initial symptoms, you will develop fluid-filled blisters in a line or streak-like pattern. The symptoms are worst within 1 to 14 days after touching the plant, but can develop up to 21 days laterif you have never been exposed to urushiol before. The blisters can occur at different times in different people; blisters can develop on the arms several days after blisters on the hands developed. This does not mean that the reaction is spreading from one area of the body to the other. The fluid that leaks from blisters does not cause symptoms. Poison isis dermatitis is not contagious and cannot be passed from person to person. However, urushiolcan be carried under fingernails and on clothes; if another person comes in contact with the urushiol, they can develop poison isis dermatitis. POISON ISIS DIAGNOSIS Poison isis is usually diagnosed based upon how your skin looks. Further testing is not usually necessary. POISON ISIS TREATMENT Poison isis dermatitis usually resolves within one to three weeks without treatment. Treatments thatmay help relieve the itching, soreness, and discomfort caused by poison isis dermatitis include: Skin treatments -- For some people, adding oatmeal to a bath, applying cool wet compresses, and applying calamine lotion may help to relieve itching. Once the blisters begin weeping fluid, astringents containing aluminum acetate (Rinku's solution) and Domeboro may help to relieve the rash. Antihistamines -- Antihistamines may help to relieve itching caused by poison isis dermatitis. Some antihistamines make you sleepy while others do not. Antihistamines that make you sleepy (eg, diphenhydramine [Benadryl ]) may be helpful if you have trouble sleeping due to itching. Other formulas (eg, loratadine [Claritin ], cetirizine [Zyrtec ]) may be preferable for daytime. Steroid creams -- Steroid creams may be helpful if they are used during the first few days after symptoms develop. Low potency steroid creams, such as 1 percent hydrocortisone (available in the [place] without prescription) are not usually helpful. A stronger prescription formula may be helpful. Steroids -- If you develop severe symptoms or the rash covers a large area (especially on the face or genitals), you may need steroid pills or injections (eg, prednisone) to help relieve itching and swelling. Pills are usually given for 14 to 21 days, with the dosage slowly decreased over time. Antibiotics -- Skin infections are a potential complication of poison isis, especially if you scratch your skin. If you develop a skin infection because of poison isis dermatitis, you may need antibiotics to treat the infection. Other treatments -- An herbal therapy called jewelweed extract has been used to treat poison isis dermatitis, although it has not been proven effective. You should not use antihistamine creams or lotions, anesthetic creams containing benzocaine, or antibiotic creams containing neomycin or bacitracin to the skin. These creams or ointments could make the rash worse. POISON ISIS PREVENTION The best way to prevent poison isis dermatitis is to identify and avoid the plants that cause it. These plants can irritate the skin year round, even during the winter months, and can still cause a reaction years after the plant dies. Wear protective clothing, including long sleeves and pants when working in areas where toxic plantsmay be found. Keep in mind that the resin and oils from the toxic plants can be carried on clothing, pets, and under fingernails. Wear heavy-duty vinyl gloves when doing yard work or gardening. The oils from toxic plants can seepthrough latex or rubber gloves. After coming in contact with poison isis, remove any contaminated clothing and gently wash (do not scrub or rub) you skin and under the fingernails with mild soap and water as soon as possible. Washing within two hours after exposure can reduce the likelihood and severity of symptoms; washing the skin after you have symptoms will not help. Creams and ointments that create a barrier between the skin and the urushiol oil may be somewhat effective for people who are frequently exposed to poison isis. Bentoquatam (Isis Block ) is one type ofbarrier cream that may prevent poison isis dermatitis. It must be reapplied every four hours and it leaves a gareth residue on the skin. Avoid burning poisonous vegetation, which can disperse the plant particles in the smoke, irritate the skin, and cause poison isis dermatitis. documented in this encounterDo[facility]05-16-[facility]24 NoteHNO ID: [id number] Author: MARIOLA FRANCO MA Service: ? Author Type: Curtain Cleaner Type: Progress Notes Filed: 09/23/2023 12:41 Note Text: POPULATION HEALTH NAVIGATION OUTREACH Action/FYI Contacted patient to schedule [place] Annual Wellness Visit, care gaps and HCCs due. 1st attempt: Unable to leave message 2nd attempt: My Chart message sent Reason for Outreach Care Gap/HCC or Scheduling Wellness Visits Care Gaps due: Medicare Annual Wellness Visit Colorectal Cancer Screening Patient Contacted: Unable or unnecessary to reach patient: Unable to leave message [email or web address] message sent HCC related Navigation Signature: Mariola Franco MA September 23, 2023 12:41 [facility]05-16-2024 History of Present illness Narrative* Mariola Franco MA - 09/23/2023 12:41 PM EDT POPULATION HEALTH NAVIGATION OUTREACH Action/FYI Contacted patient to schedule [place] Annual Wellness Visit, care gaps and HCCs due. 1st attempt: Unable to leave message 2nd attempt: My Chart message sent Reason for Outreach Care Gap/HCC or Scheduling Wellness Visits Care Gaps due: Medicare Annual Wellness Visit Colorectal Cancer Screening Patient Contacted: Unable or unnecessary to reach patient: Unable to leave message [email or web address] message sent HCC related Navigation Signature: Mariola Franco MA September 23, 2023 12:41 PM documented in this encounterDoctors Hospital05-16-2024 NotePatient Outreach (MARYELLENNAV) IZZY ROSENTHAL ([id number]) 1955 [facility] Date Time Provider Department 09/23/23 MARIOLA FRANCO During your visit today, we recorded the following information about you: Mariola Franco MA 09/23/2023 12:41 PM Signed POPULATION HEALTH NAVIGATION OUTREACH Action/FYI Contacted patient to schedule [place] Annual Wellness Visit, care gaps and HCCs due. 1st attempt: Unable to leave message 2nd attempt: My Chart message sent Reason for Outreach Care Gap/HCC or Scheduling Wellness Visits Care Gaps due: Medicare Annual Wellness Visit Colorectal Cancer Screening Patient Contacted: Unable or unnecessary to reach patient: Unable to leave message MyChart message sent HCC related Navigation Signature: Mariola Franco MA September 23, 2023 12:41 PM Allergies As of Date: 09/23/2023 Noted Allergy Reaction ERYTHROMYCIN BASE 01/18/2002 8 - GI Upset Comments: Severe abd pain. No diarrhea or emesis. POTATO 11/11/2022 8 - GI Upset SALMON OIL 11/05/2022 8 - GI Upset TOMATO 11/11/2022 8 - GI Upset TUNA OIL 11/05/2022 8 - GI Upset Date Reviewed: 03/20/2023 Reviewed by: Mariola Ruiz APRN.GROUND OPERATIONS SUPERINTENDENT - Fully Assessed Reason for Visit: Population Health Navigation Outreach [3910] Cmt: Cody AWV/HCC and care gaps Prescriptions as of 09/23/2023 - albuterol HFA (PROVENTIL HFA, VENTOLIN HFA) 90 mcg/actuation inhaler Inhale as instructed. - Vitamin R38-Ldpei Acid 0.5-1 mg tab Take by mouth. - Cholecalciferol, Vitamin D3, 25 mcg (1,000 unit) cap Take by mouth. - lactobacillus comb no.10 (PROBIOTIC) 20 billion cell cap - triamcinolone acetonide (NASACORT ALLERGY NASAL) Use in the nose. - benzonatate (TESSALON PERLES) 100 mg capsule Take 1 capsule by mouth three times a day as needed for cough. - CREON 36,000-114,000- 180,000 unit delayed release capsule - montelukast (SINGULAIR) 10 mg tablet Take 10 mg by mouth once daily. - azelastine (ASTELIN) 0.1% nasal spray Use 1 [place] in each nostril twice daily. - fluticasone-vilanterol (BREO ELLIPTA) 200-25 mcg/dose inhaler Inhale 1 Inhalation as instructed once daily. Taking 100 instead of 200 - pantoprazole sodium (PROTONIX ORAL) Take by mouth. - B infantis/B ani/B tanner/B bifid (PROBIOTIC 4X ORAL) Take by mouth. - loratadine-pseudoephedrine ER (CLARITIN-D 12 HOUR) 5-120 mg per tablet Take 1 tablet by mouth once daily. - calcium-cholecalciferol, D3, (OSCAL+D 250) 250-125 mg-unit per tablet Take 1 tablet by mouth once daily. - COMPOUNDED PRESCRIPTION Takes Replenex 3 pills daily - multivitamins(DAILY MULTIVITAMIN TAB) Take one(1) tablet daily. Problem List As Of Date 09/23/2023 Noted Resolved Nonspecific abnormal findings on radiological o*12/03/2001 08/01/2013 Malignant neoplasm of female breast (HCC) [C50.*01/19/2002 Hx of gastroesophageal reflux (GERD) [Z87.19] 08/01/2013 Postmenopausal atrophic vaginitis [N95.2] 08/01/2013 Mild intermittent asthma [J45.20] 04/10/2015 Closed fracture of right distal radius [S52.501*01/25/2018 Rectal prolapse [K62.3] 11/28/2019 Irregular bowel habits [R19.8] 11/28/2019 Urinary tract infection without hematuria [N39.*11/28/2019 Internal complete rectal prolapse with intussus*12/11/2019 Obstructive defecation [K56.41] 12/11/2019 Encounter Status:Closed by MARIOLA FRANCO on 09/23/23[facility] 03-20-2023 History of Present illness Narrative* Mariola Ruiz APRN.GROUND OPERATIONS SUPERINTENDENT - 03/20/2023 10:43 AM EST Jeanie is a 67 year old who presents for an annual gynecologic exam without complaints. At last exam one year ago, she complained of irritation and dryness to inner right vulva that lubricant did not help - Started Revaree and symptoms have resolved.. Paternal cousin, 65, diagnosed with and passed from ovarian cancer after less than one year. Postmenopausal: Yes HRT use: No. Last Pap: 07/28/2018 normal HPV: 07/27/2018 negative History of abnormal pap: No Last mammogram: 2001,2003 - bilateral mastectomy History of abnormal mammogram: Yes Sexually active: Yes Patient concerns for STD exposure: No. Time with current partner: 8 years Pain with intercourse: Not if she uses Revaree and lubricant Postcoital bleeding: No Vaginal dryness: Yes - resolved with Rvaree All documentation from previous visit of 03/10/2022 was copied and pasted, documentation has been reviewed and edited as necessary for today's visit. OB History T0 L4 SAB0 IAB0 Ectopic0 Multiple0 Live Births0 Comment: Age of menarche 13, afb 20. Premenopausal Millinery Copyist History LMP: 06/10/2006, Postmenopausal Age at Menarche: Age at First : Age at Menopause: Millinery Copyist History Comments: Sexual Activity: Yes; Male; vas Contraception: Surgical PAST MEDICAL HISTORY Diagnosis Date Chiu esophagus Ciro Coto MD. EGD. Elimination diet successful. 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 MASTECTOMY,SIMPLE 09/04/2003 right side REPAIR WRIST FRACTURE Right FAMILY HISTORY Problem Relation Age of Onset COPD Mother former smoker Graves Disease Mother other (Other) Father Stomach rotted out. COPD Father Breast Cancer Sister Allergies Brother Breast Cancer Maternal Grandmother 65 Asthma Maternal Grandmother SOCIAL HISTORY Social History Tobacco Use Smoking status: Never Smokeless tobacco: Never Tobacco comments: 2 parents smoked in children home. No ETS in adulthood. Vaping Use Vaping Use: Never used Substance Use Topics Alcohol use: Yes Comment: rare Drug use: No REVIEW OF SYSTEMS Abdomen: No abdominal pain, nausea, vomiting, diarrhea, or constipation. No bloating, early satiety, indigestion, or increased flatulence. Known rectal prolapse - seeing Dr José Antonio. Bladder: No dysuria, gross hematuria, urinary frequency, urinary urgency, or incontinence Breast:none - s/p bilateral mastectomy Allergies and current medication updated:Yes EXAM: BP 105/69 Ht 5' 4 (1.63m) Wt 118 lb (53.5kg) LMP 06/10/2006 BMI 20.24 kg/(m^2). GENERAL: pleasant, female in no apparent distress HEENT: Normocephalic, atraumatic, mucus membranes moist, and no lesions NECK: Supple, full range of motion, no adenopathy, and thyroid normal DERMATOLOGY: Normal, without lesions, non-icteric, and non-hirsute BREAST: healed bilateral mastectomy scars CHEST: Normal inspiratory effort ABDOMEN: soft, non-tender, and no masses PELVIC: external genitalia normal, normal Bartholin's glands, urethra, Ellsworth's glands, no vulvar lesions, no cervical lesions, physiologic discharge present, normal appearing perineal body and perianal region, mild rectocele. - vaginal atrophy improved BIMANUAL: uterus normal size, shape and consistency, no adnexal masses, and non-tender RECTOVAGINAL: deferred. NEURO: alert and oriented x3,exam grossly non-focal EXTREMITIES: normal ASSESSMENT/PLAN: 1) Health maintenance: Pap/HPV screening no longer needed Mammogram ordered Nutrition, exercise and routine health maintenance exams reviewed. Calcium/Vitamin D supplementation information provided. Colon cancer screening: up to date with screening Dr. Chou BMD: up to date Osteoporosis LS and osteopenia bilateral hips/femoral neck. 2) Follow up one year or sooner as needed Mariola Ruiz APRN.NIKKI documented in this encounterDoctors Hospital07-05-2023 Procedure [facility]23 Procedure [facility]03-01-2023 Instructions* Patient Instructions* Sugey Gale APRN.CNP - 07/08/2022 5:33 PM EST -Increase fluids. Focus on clears. -Decrease sugary drink intake. Minimize caffeine. -Wipe front to back. No tight clothing. No bubble baths. -Results will be released to [facility] unless there is a need for a change in medication. -If no improvement in 3-5 days please be re-seen. -Be seen immediately or go to the ER with worsening/warning symptoms. Warning symptoms include: chills, severe flank pain, severe abdominal/pelvic pain, fevers 101 or higher, chest pain, and respiratory distress. Certain foods and beverages might irritate your bladder, including: Coffee, tea and carbonated drinks, even without caffeine. Alcohol. Certain acidic fruits -- oranges, grapefruits, hunter and limes -- and fruit juices. Spicy foods. Tomato-based products. Carbonated drinks. Chocolate. documented in this encounterDoctors Hospital03-01-2023 History of Present illness Narrative* Sugey Gale APRN.GROUND OPERATIONS SUPERINTENDENT - 07/08/2022 5:32 PM EST This note was created using Appetite+riter. Subjective Izzy Rosenthal is a 67 year old female. HPI by patient: Jeanie is a 67 year old presenting to the office with the complaint of UTI Started approximately a few days ago. Pt was just recently treated with antibiotic for same. Patient has incontinence issues that cause her to lose control of her bowels causing her to get freq UTI's. Associated symptoms include burning and urgency Denies any other concerns Covid Immunization Dates Overdue - COVID-19 VACCINE (4 - Booster for Pfizer series) Overdue since 04/14/2021 02/17/2021 Imm Admin: COVID-19 vaccine, age 12+ yr (PFIZER-BIONTECH - PURPLE TOP) 08/06/2020 Imm Admin: COVID-19 vaccine, age 12+ yr (PFIZER-BIONTECH - PURPLE TOP) 07/16/2020 Imm Admin: COVID-19 vaccine, age 12+ yr (PFIZER-BIONTECH - PURPLE TOP) ALLERGIES Erythromycin Base GI Upset Comment:Severe abd pain. No diarrhea or emesis. Family History Reviewed Including Cardiac Diseases, Psychiatric Diseases, & Substance Abuse Problem: COPD Relation: Mother Age of Onset: (Not Specified) Comment: former smoker Problem: Graves Disease Relation: Mother Age of Onset: (Not Specified) Problem: other (Other) Relation: Father Age of Onset: (Not Specified) Comment: Stomach rotted out. Problem: COPD Relation: Father Age of Onset: (Not Specified) Problem: Breast Cancer Relation: Sister Age of Onset: (Not Specified) Problem: Allergies Relation: Brother Age of Onset: (Not Specified) Problem: Breast Cancer Relation: Maternal Grandmother Age of Onset: (Not Specified) Comment: 65 Problem: Asthma Relation: Maternal Grandmother Age of Onset: (Not Specified) Social History Tobacco Use Smoking status: Never Smokeless tobacco: Never Tobacco comments: 2 parents smoked in children home. No ETS in adulthood. Vaping Use Vaping Use: Never used Alcohol use: Yes Comment: rare Drug use: No Review of Systems Constitutional: Negative for chills and fever. Gastrointestinal: Negative for abdominal pain, nausea and vomiting. Genitourinary: Positive for dysuria, frequency and urgency. Negative for flank pain, hematuria, pelvic pain and vaginal discharge. Allergic/Immunologic: Negative for immunocompromised state. Objective Ht 162.6 cm (5' 4) Wt 54.4 kg (120 lb) LMP 06/10/2006 BMI 20.60 kg/m Physical Exam Vitals and nursing note reviewed. Constitutional: Appearance: She is well-developed. Cardiovascular: Rate and Rhythm: Normal rate and regular rhythm. Heart sounds: Normal heart sounds. Pulmonary: Effort: Pulmonary effort is normal. Breath sounds: Normal breath sounds. Abdominal: General: Bowel sounds are normal. Palpations: Abdomen is soft. Tenderness: There is no abdominal tenderness. Skin: General: Skin is warm and dry. Neurological: Mental Status: She is alert and oriented to person, place, and time. Assessment and Plan ASSESSMENT/PLAN: 1. Recurrent UTI (urinary tract infection) - ICD9: 599.0, ICD10: N39.0 acute - Patient education for prevention given - URINE CULTURE - CEPHALEXIN 500 MG CAPSULE Sugey Gale APRN.CNP Medical Decision Making: Problems: Moderate: New problem with uncertain prognosis Data: Unique test(s) ordered: 2 Risk: Moderate: Drug management Medical Decision Making Level: 4 - Moderate Remove COVID19 association documented in this encounterDoctors Hospital02-17-2023 Miscellaneous Notes* Addendum Note - Leticia Harper APRN.CNP - 06/26/2022 7:26 PM ESTAddended by: LETICIA HARPER on: 06/26/2022 07:26 PM Modules accepted: Orders * Addendum Note - Jamie Swartz Ma - 06/26/2022 7:24 PM ESTAddended by: JAMIE SWARTZ MA on: 06/26/2022 07:24 PM Modules accepted: Orders documented in this encounterDoctors Hospital02-17-2023 History of Present illness Narrative* Leticia Harper APRN.CNP - 06/26/2022 6:11 PM EST This note was created using NoteWriter. Subjective Izzy Rosenthal is a 67 year old female. HPI by patient: Izzy Rosenthal is a 67 year old presenting to the office with the complaint of uti symptoms. Started yesterday. Associated symptoms include foul odor to the urine and some burning in the urethra. Denies fevers, chills, nausea, vomiting, and sharp abdominal/back pain. Denies vaginal symptoms. Had uti's in the past with similar symptoms. OTC Not used. No antibiotic use in the last 60 days. Also, has an areas to the posterior right upper leg that feels hot. Has no rash yet but asking if it could be shingles. Her mother had shingles and remembers her describing a burning sensation. ALLERGIES Erythromycin Base GI Upset Comment:Severe abd pain. No diarrhea or emesis. Family History Reviewed Including Cardiac Diseases, Psychiatric Diseases, & Substance Abuse Problem: COPD Relation: Mother Age of Onset: (Not Specified) Comment: former smoker Problem: Graves Disease Relation: Mother Age of Onset: (Not Specified) Problem: other (Other) Relation: Father Age of Onset: (Not Specified) Comment: Stomach rotted out. Problem: COPD Relation: Father Age of Onset: (Not Specified) Problem: Breast Cancer Relation: Sister Age of Onset: (Not Specified) Problem: Allergies Relation: Brother Age of Onset: (Not Specified) Problem: Breast Cancer Relation: Maternal Grandmother Age of Onset: (Not Specified) Comment: 65 Problem: Asthma Relation: Maternal Grandmother Age of Onset: (Not Specified) Social History Tobacco Use Smoking status: Never Smokeless tobacco: Never Tobacco comments: 2 parents smoked in children home. No ETS in adulthood. Vaping Use Vaping Use: Never used Alcohol use: Yes Comment: rare Drug use: No Active Ambulatory Problems Malignant neoplasm of female breast (HCC) Date Noted: 01/19/2002 Hx of gastroesophageal reflux (GERD) Date Noted: 08/01/2013 Postmenopausal atrophic vaginitis Date Noted: 08/01/2013 Mild intermittent asthma Date Noted: 04/10/2015 Closed fracture of right distal radius Date Noted: 01/25/2018 Rectal prolapse Date Noted: 11/28/2019 Irregular bowel habits Date Noted: 11/28/2019 Urinary tract infection without hematuria Date Noted: 11/28/2019 Internal complete rectal prolapse with intussusception of rectosigmoid (HCC) Date Noted: 12/11/2019 Obstructive defecation (HCC) Date Noted: 12/11/2019 Resolved Ambulatory Problems Nonspecific abnormal findings on radiological or other examinations of the breast Date Noted: 12/03/2001 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 HENT: Negative. Eyes: Negative. Respiratory: Negative. Cardiovascular: Negative. Gastrointestinal: Negative. Endocrine: Negative. Genitourinary: Negative. Musculoskeletal: Negative. Skin: Negative. Neurological: Negative. Hematological: Negative. Objective BP 116/76 Pulse 72 Temp 36.4 C (97.5 F) (Temporal) Resp 18 Ht 162.6 cm (5' 4) Wt 55.8 kg(123 lb) LMP 06/10/2006 SpO2 99% BMI 21.11 kg/m Physical Exam Vitals reviewed. Constitutional: General: She is not in acute distress. Appearance: She is not ill-appearing, toxic-appearing or diaphoretic. Cardiovascular: Rate and Rhythm: Normal rate and regular rhythm. Pulmonary: Effort: Pulmonary effort is normal. Abdominal: General: Bowel sounds are normal. Palpations: Abdomen is soft. Tenderness: There is no abdominal tenderness. There is no right CVA tenderness, left CVA tenderness, guarding or rebound. Neurological: Mental Status: She is alert. Assessment and Plan (R39.9) UTI symptoms (primary encounter diagnosis) Plan: nitrofurantoin monohydrate and macrocrystal (MACROBID) 100 mg capsule UA positive for leukocytes and blood. Will start macrobid and send culture. -Increase fluids. Focus on clears. -Decrease sugary drink intake. Minimize caffeine. -Wipe front to back. No tight clothing. No bubble baths. -Results will be released to [facility] unless there is a need for a change in medication. -Please return if a rash presents to the leg. -Be seen immediately or go to the ER with worsening/warning symptoms. Warning symptoms include: chills, severe flank pain, severe abdominal/pelvic pain, fevers 101 or higher, chest pain, and respiratory distress. The patient will pursue further outpatient evaluation with the primary care physician or another Urgent Care/Express Care as outlined in the after visit summary. The patient is agreeable to this planof care and follow-up instructions have been explained in detail. The patient has received these instructions in written format and have expressed an understanding of the after visit summary. Medical Decision Making: Level: 4 - Moderate I spent a total of 20 minutes on the date of the service which included preparing to see the patient, [id number] patient care, completing clinical documentation, obtaining and/or reviewing separately obtained history, performing a medically appropriate examination, counseling and educating the pat ient/family/caregiver, and ordering medications, tests, or procedures. documented in this encounterDoctors Hospital02-17-2023 Instructions* Patient Instructions* Leticia Harper APRN.CNP - 06/26/2022 6:11 PM EST (R39.9) UTI symptoms (primary encounter diagnosis) Plan: nitrofurantoin monohydrate and macrocrystal (MACROBID) 100 mg capsule UA positive for leukocytes and blood. Will start macrobid and send culture. -Increase fluids. Focus on clears. -Decrease sugary drink intake. Minimize caffeine. -Wipe front to back. No tight clothing. No bubble baths. -Results will be released to [facility] unless there is a need for a change in medication. -Please return if a rash presents to the leg. -Be seen immediately or go to the ER with worsening/warning symptoms. Warning symptoms include: chills, severe flank pain, severe abdominal/pelvic pain, fevers 101 or higher, chest pain, and respiratory distress. Certain foods and beverages might irritate your bladder, including: Coffee, tea and carbonated drinks, even without caffeine. Alcohol. Certain acidic fruits -- oranges, grapefruits, hunter and limes -- and fruit juices. Spicy foods. Tomato-based products. Carbonated drinks. Chocolate. documented in this encounterDoctors Hospital11-23-2022 History of Present illness Narrative* Quentin Espinoza RT(R) - 04/01/2022 2:30 PM EST Radiology Service Progress Note PATIENT NAME: Izzy Rosenthal DATE OF SERVICE: April 01, 2022 TIME: 1:51 PM PATIENT IDENTITY VERIFICATION COMPLETED USING TWO (2) IDENTIFIERS: Name and Date of confirmedby patient verbally. FALL SCREENING: Has the patient had 2 falls in the last year or 1 fall with injury or currently using an Ambulatory Assistive Device (Walker, Cane, Wheelchair, Crutches, etc.)? No PATIENT GENDER DATA: Female. status: : No status: NO. PATIENT RELEVANT IMPLANT DATA REVIEWED: Not Applicable RADIOLOGY DEPARTMENT: Bone Density PERIPHERAL IV DATA: Not applicable SIGNED BY: RT Sonia(R) April 01, 2022 1:51 PM documented in this encounterDoctors Hospital11-10-2022 Instructions* Patient Instructions* Brittani May APRN.GROUND OPERATIONS SUPERINTENDENT - 03/19/2022 6:57 PM EST RESPIRATORY INFECTION GENERAL INFORMATION: An upper respiratory tract infection, or cold, is a viral infection of the airway passages. It can be caused by any one of almost 200 different viruses. Common symptoms include a runny or stuffy nose, sneezing, watery eyes, sore throat, cough, and slight fever. Colds are contagious, especially during the first 3 or 4 days and cannot be cured by antibiotics. They are spread by coughs, sneezes, anddirect contact, especially [id number]. A respiratory tract infection usually clears up in a few days, but some people may be sick for a week or two. There is no cure for the common cold since colds are caused by viruses. Antibiotics don t kill viruses so they will not make your child s cold better. But you can help your child feel better until the cold goes away. There may also be a mild fever (under 102 F or 38.9 C) or headache. All this can make yourchild fussy too.Colds usually last about a week but can even last for 10 days. If there is fever, it should come at the start of the cold and then go away.Mucus (MYOO-kus) in your child s nose may turn yellow or green after 3 or 4 days. Children can get one cold right after another. So it may seem like your lynsey peoples is sick for a long time. INSTRUCTIONS: To Help a Stuffy Nose Put a cool-mist humidifier in your child s room. A humidifier ([id number]) puts water into the air to help clear your child s stuffy nose. Be sure to clean the humidifier often. Thin the mucus. Use saline (saltwater) nose drops. Never use any other kind of nose drops unless your child s doctor prescribes them. Clear your baby s nose with a suction bulb. (This is also called an ear bulb.) Squeeze the bulb first and hold it in. Gently put the rubber tipinto one nostril, and slowly release the bulb. This will suck the clogged mucus out of the nose. Itworks best for babies younger than 6 months. CONTACT YOUR DOCTOR IF : Fever lasting more than 2 or 3 days Cold symptoms that get worse, instead of better, after a week. Trouble breathing or drinking Ear pain Acting very sleepy or fussy Coughing more than 10 days RETURN IMMEDIATELY IF: 1. If cough up thick yellow, green, shook, or bloody sputum. 2. If having difficulty breathing, pain in the chest, or if skin or nails look shook or blue. 3. If shaking chills or a temperature over 102 F (39 C). SUCTIONING THE NOSE WITH A BULB SYRINGE A stuffy nose can make it hard for your baby to breathe. This can make your baby fussy, especially when he/she tries to eat or sleep. Suctioning makes it easier for your baby to breathe and eat. If needed, it is best to suction your baby's nose before a feeding or bedtime. Avoid suctioning after feeding. This may cause your baby to vomit. Before using the bulb syringe, you should thin the mucus with normal saline (salt water) nose dropsas instructed below. Making Saline Nose Drops 1. Add 1/4 level teaspoon of salt to the 8 ounces (1 cup) of water. 2. Heat to boil to dissolve the salt 3. Allow to cool before using. 4. Keep the solution in a clean, covered jar. 5. Discard the solution after 1 week. Note: You may also use purchased saline nose drops. Procedure 1. Wash your hands well before and after suctioning. 2. Lay your baby on his back with head positioned facing ceiling. Have someone hold your baby in this position or swaddle your baby in a blanket with arms at their side to keep them still. 3. Using a nose dropper, drop 3-4 drops saline solution into one nostril, unless otherwise directedby your baby's doctor. Hold baby in this position for 1 minute. 4. Before placing the bulb into the nostril, push all the air out of it with your thumb on the top of the bulb. 5. Carefully and gently, place the tip of the bulb into a nostril until nostril is sealed. 6. Slowly release thumb letting the air come back into the bulb. The suction will pull the mucus out of the nose and into the bulb 7. Remove the bulb from baby's nose and squeeze mucus out of bulb into a tissue. 8. Repeat steps 3 through 8 on other nostril. You may need to suction each nostril several times toclear all the mucus. 9. Clean bulb syringe after each use with warm soapy water and rinse thoroughly. When suctioning the mouth, be sure to put the suction bulb towards the inside cheek of your child'smouth. If the bulb is placed in the middle of the mouth, your baby may gag and vomit. Make Sure Your Child Drinks Lots of Liquids Make sure your child drinks plenty of liquids to avoid getting dehydration. Clear liquids may work better than milk or formula if your child s nose is very stuffy. A Warning About Cold and Cough Medicines The [place] [employer] strongly recommends that [id number] cough and cold medications not be given to infants and children younger than 2 years because of the risk of life-threatening side effects. Also, several studies show that cold and cough products don t work in children younger than 6 years and can have potentially serious side effects. [facility] History of Present illness Narrative* Brittani May APRN.CNP - 03/19/2022 6:50 PM EST This note was created using [employer]etite+riter. Subjective Izzy Rosenthal is a 66 year old female. 66 year old female with PMH asthma, GERD presents for illness. Acute onset one week ago. 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 Denies Denies fever or chills Denies skin rash or lesions. She was seen by her coffee shop aide on 03/11/22 and at that time placed on a prednisone taper, which she is still taking. Denies history of tobacco usage. The history is provided by the patient. No world language teacher was used. Cough This is a new problem. The current episode started more than 1 week ago. The problem occurs constantly. The problem has been gradually worsening. The cough is Non-productive. There has been no fever.Associated symptoms include chills, headaches, rhinorrhea, sore throat and myalgias. Pertinent negatives include no chest pain, no sweats, no weight loss, no ear congestion, no ear pain, no shortnessof breath, no wheezing and no eye redness. Treatments tried: OTC medicines. The treatment provided no relief. She is not a smoker. Her past medical history is significant for asthma. Her past medicalhistory does not include bronchitis, pneumonia, bronchiectasis, COPD or emphysema. PAST MEDICAL HISTORY Diagnosis Date Chiu esophagus Ciro Coto MD. EGD. Elimination diet successful. Carcinoma in situ of breast Bilateral mastectomy 2001,2003 Gastric ulcer Rectal prolapse Unspecified asthma(493.90) PAST SURGICAL HISTORY Procedure Laterality Date COLONOSCOPY SCREENING 2017 5-7 year interval ESOPHAGOGASTRODUODENOSCOPY_*FL 12/20/2018 with biopsies MASTECTOMY,SIMPLE 01/10/2002 left simple mastectomy with sentinel lymph node bx. MASTECTOMY,SIMPLE 09/04/2003 right side REPAIR WRIST FRACTURE Right ALLERGIES Erythromycin Base MEDICATIONS predniSONE (DELTASONE) 10 mg tablet TAKE 4 TABLETS BY MOUTH FOR 4 DAYS, TAKE 3 TABLETS FOR 4 DAYS, TAKE 2 TABLETS FOR 4 DAYS, then TAKE 1 TABLET BY MOUTH FOR 4 DAYS. montelukast (SINGULAIR) 10 mg tablet Take 10 mg by mouth once daily. azelastine (ASTELIN) 0.1% nasal spray Use 1 [place] in each nostril twice daily. fluticasone-vilanterol (BREO ELLIPTA) 200-25 mcg/dose inhaler Inhale 1 Inhalation as instructed once daily. Taking 100 instead of 200 pantoprazole sodium (PROTONIX ORAL) Take by mouth. B infantis/B ani/B tanner/B bifid (PROBIOTIC 4X ORAL) Take by mouth. loratadine-pseudoephedrine ER (CLARITIN-D 12 HOUR) 5-120 mg per tablet Take 1 tablet by mouth once daily. calcium-cholecalciferol, D3, (OSCAL+D 250) 250-125 mg-unit per tablet Take 1 tablet by mouth once daily. COMPOUNDED PRESCRIPTION Takes Replenex 3 pills daily multivitamins(DAILY MULTIVITAMIN TAB) Take one(1) tablet daily. amoxicillin-clavulanic acid (AUGMENTIN) 875-125 mg per tablet Take 1 tablet by mouth twice daily for 5 days. benzonatate (TESSALON PERLES) 100 mg capsule Take 1 capsule by mouth three times daily as needed for cough. ARNUITY ELLIPTA 200 mcg/actuation 1 PUFF DAILY WITH GOOD ORAL CARE (Patient not taking: Reported on04/17/2021) FAMILY HISTORY Problem Relation Age of Onset COPD Mother former smoker Graves Disease Mother other (Other) Father Stomach rotted out. COPD Father Breast Cancer Sister Allergies Brother Breast Cancer Maternal Grandmother 65 Asthma Maternal Grandmother Social History Tobacco Use Smoking status: Never Smokeless tobacco: Never Tobacco comments: 2 parents smoked in children home. No ETS in adulthood. Vaping Use Vaping Use: Never used Substance Use Topics Alcohol use: Yes Comment: rare Drug use: No Review of Systems Constitutional: Positive for chills and fatigue. Negative for fever and weight loss. HENT: Positive for congestion, rhinorrhea, sinus pressure, sinus pain and sore throat. Negative forear pain. Eyes: Negative for pain, discharge, redness and itching. Respiratory: Positive for cough. Negative for apnea, choking, chest tightness, shortness of breath and wheezing. Cardiovascular: Negative for chest pain, palpitations and leg swelling. Gastrointestinal: Negative for abdominal pain, diarrhea, nausea and vomiting. Musculoskeletal: Positive for myalgias. Negative for arthralgias and back pain. Skin: Negative for color change, pallor, rash and wound. Allergic/Immunologic: Positive for immunocompromised state. Negative for environmental allergies and food allergies. Neurological: Positive for headaches. Negative for dizziness, facial asymmetry, light-headedness and numbness. Hematological: Negative for adenopathy. Does not bruise/bleed easily. Psychiatric/Behavioral: Negative for agitation and behavioral problems. Objective BP 128/82 Pulse 76 Temp 36.8 C (98.2 F) (Tympanic) Resp 18 Wt 55.4 kg (122 lb 3.2 oz) LMP12/11/2006 SpO2 100% BMI 20.98 kg/m Physical Exam Vitals and nursing note reviewed. Constitutional: General: She is not in acute distress. Appearance: Normal appearance. She is normal weight. She is not ill-appearing, toxic-appearing or diaphoretic. HENT: Head: Normocephalic and atraumatic. Comments: +frontal sinus pressure Right Ear: Ear canal and external ear normal. Left Ear: Ear canal and external ear normal. Nose: Nose normal. No congestion or rhinorrhea. Mouth/Throat: Mouth: Mucous membranes are moist. Pharynx: No oropharyngeal exudate or posterior oropharyngeal erythema. Eyes: General: Right eye: No discharge. Left eye: No discharge. Extraocular Movements: Extraocular movements intact. Conjunctiva/sclera: Conjunctivae normal. Pupils: Pupils are equal, round, and reactive to light. Cardiovascular: Rate and Rhythm: Normal rate and regular rhythm. Pulses: Normal pulses. Heart sounds: Normal heart sounds. No murmur heard. No friction rub. Pulmonary: Effort: Pulmonary effort is normal. No respiratory distress. Breath sounds: Normal breath sounds. No stridor. No wheezing, rhonchi or rales. Comments: Harsh deep moist cough Worsened with deep inspiration Chest: Chest wall: No tenderness. Abdominal: General: Abdomen is flat. There is no distension. Palpations: Abdomen is soft. There is no mass. Tenderness: There is no abdominal tenderness. There is no right CVA tenderness, left CVA tenderness, guarding or rebound. Hernia: No hernia is present. Musculoskeletal: General: No swelling, tenderness, deformity or signs of injury. Normal range of motion. Cervical back: Normal range of motion and neck supple. No rigidity. Right lower leg: No edema. Left lower leg: No edema. Lymphadenopathy: Cervical: No cervical adenopathy. Skin: General: Skin is warm and dry. Capillary Refill: Capillary refill takes less than 2 seconds. Coloration: Skin is not jaundiced or pale. Findings: No bruising, erythema, lesion or rash. Neurological: General: No focal deficit present. Mental Status: She is alert and oriented to person, place, and time. Cranial Nerves: No cranial nerve deficit. Sensory: No sensory deficit. Motor: No weakness. Coordination: Coordination normal. Gait: Gait normal. Psychiatric: Mood and Affect: Mood normal. Behavior: Behavior normal. Thought Content: Thought content normal. Judgment: Judgment normal. Assessment and Plan ASSESSMENT/PLAN: 1. 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 - Follow up in 3-5 days if symptoms persist or sooner if worsening of symptoms - XR CHEST 2V FRONTAL/LAT-negative for acute process - COVID WITH FLUA+B, ROUTINE 2. URI, acute - ICD9: 465.9, ICD10: J06.9 - Symptomatic treatment with prn analgesia - Supportive care with fluids and rest - The patient may also use OTC cough and cold meds as needed, warm salt water gargles, throat lozenges and/or OTC throat spray as needed, nasal saline gtts and suction prn RX Kayode Anastacio Patient was given an ATB for Augmentin that she can start this weekend if her flu and COVID swabs are negative. - Follow up in 3-5 days if symptoms persist or sooner if worsening of symptoms - - XR CHEST 2V FRONTAL/LAT-negative for acute process - COVID WITH FLUA+B, ROUTINE Brittani May APRN.NIKKI documented [facility] this [facility]11[facility]22 Instructions* Patient Instructions* Mariola Ruiz APRN.CNP - 03/10/2022 8:49 AM EDT Revaree every 2-3 days If not SIGNIFICANT improvement - schedule reassessment/vulvar biopsy documented in this encounterDo[facility]11-[facility]22 History of Present illness Narrative* Mariola Ruiz APRN.NIKKI - 03/10/2022 8:07 AM EDT Skull Splitter offered: Patient declinesLina Ware is a 66 year old who presents for an annual gynecologic exam with complaints, vaginal dryness. Lubricant helps but has one spot that it does not help. Postmenopausal: Yes HRT use: No. Last Pap: 07/28/2018 normal HPV: 07/27/2018 negative History of abnormal pap: No Last mammogram: 2001,2003 - bilateral mastectomy History of abnormal mammogram: Yes Sexually active: Yes Patient concerns for STD exposure: No. Time with current partner: 7 years Pain with intercourse: Yes due to vaginal dryness Postcoital bleeding: No Vaginal dryness: Yes OB History T0 L4 SAB0 IAB0 Ectopic0 Multiple0 Live Births0 Comment: Age of menarche 13, afb 20. Premenopausal [employer] Copy[employer] History LMP: 12/11/2006, Postmenopausal Age at Menarche: Age at First : Age at Menopause: [employer] Copyist History Comments: Sexual Activity: Yes; Male; vas Contraception: Surgical PAST MEDICAL HISTORY Diagnosis Date Chiu esophagus Ciro Coto MD. EGD. Elimination diet successful. 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 Completed menopause. Rectal prolapse Unspecified asthma(493.90) PAST SURGICAL HISTORY Procedure Laterality Date ESOPHAGOGASTRODUODENOSCOPY_*FL 12/20/2018 with biopsies MASTECTOMY,SIMPLE 01-10-02 left simple mastectomy with sentinel lymph node bx. MASTECTOMY,SIMPLE 09/04/2003 right side FAMILY HISTORY Problem Relation Age of Onset other (Other) Father Stomach rotted out. Allergies Brother Breast Cancer Maternal Grandmother 65 Asthma Maternal Grandmother Breast Cancer Sister diagnosed at age 44 SOCIAL HISTORY Social History Tobacco Use Smoking status: Never Smokeless tobacco: Never Tobacco comments: 2 parents smoked in children home. No ETS in adulthood. Vaping Use Vaping Use: Never used Substance Use Topics Alcohol use: Yes Comment: rare Drug use: No REVIEW OF SYSTEMS Abdomen: Known rectal prolapse - she does not want treatment until effective treatment for her cough due to asthma is found. No abdominal pain, nausea, vomiting, diarrhea, or constipation. No bloating, early satiety, indigestion, or increased flatulence. Bladder: No dysuria, gross hematuria, urinary frequency, urinary urgency, or incontinence Breast: s/p bilateral mastectomy Allergies and current medication updated:Yes EXAM: BP 120/90 Ht 5' 4 (1.63m) Wt 122 lb (55.3kg) LMP 12/11/2006 BMI 20.93 kg/(m^2). GENERAL: pleasant, female in no apparent distress HEENT: Normocephalic, atraumatic, mucus membranes moist, and no lesions NECK: Supple, full range of motion, no adenopathy, and thyroid normal DERMATOLOGY: Normal, without lesions, non-icteric, and non-hirsute BREAST: healed double mastectomy scars CHEST: Normal inspiratory effort ABDOMEN: soft, non-tender, and no masses PELVIC: external genitalia normal, normal Bartholin's glands, urethra, Ellsworth's glands, no cervical lesions, physiologic discharge present, normal appearing perineal body and perianal region. + vaginal atrophy - vaginal koch and cervix pale, loss of rugae. Discoloration to inner right vulva - 1.0 cm linear grouping of brown spots that pt identifies of area of pain with SI. BIMANUAL: uterus normal size, shape and consistency, no adnexal masses, and non-tender RECTOVAGINAL: deferred. NEURO: alert and oriented x3,exam grossly non-focal EXTREMITIES: normal ASSESSMENT/PLAN: 1) Health maintenance: Pap/HPV no longer needed Mammogram no longer needed - double mastectomy Nutrition, exercise and routine health maintenance exams reviewed. Calcium/Vitamin D supplementation information provided. Colon cancer screening: up to date with screening BMD: ordered 2. Discoloration of vulva - ICD9: 624.8, ICD10: N90.89 - inner right vulva 3. Atrophy of vagina - ICD9: 627.3, ICD10: N95.2 - Discussed treatment options of vaginal estrogen or vaginal hyaluronic acid. Prefers Revaree hyaluronic acid vaginal suppositories - use reviewed. 4. Vulvar itching - ICD9: 698.1, ICD10: L29.2 - follow-up in one month if Revaree does not result in significant improvement. Discussed vulvar biopsy may be needed. 5) Follow up one year or sooner as needed Mariola Ruiz APRN.NIKKI documented in this encounterDo[facility]06-08-2022 Instructions* Patient Instructions* Brittani May APRN.CNP - 10/15/2021 1:17 PM EDT Patient instructed to: * Use cold compresses, 20 minutes 4-6 times per day * Use [place] Solution and Aveeno products as needed. * Wash all clothes. * Return to primary care provider if no relief in 3-4 days. EXPRESS CARE PATIENT INFO POISON ISIS INTRODUCTION When the skin comes in direct contact with an irritating or allergy-causing substance, contact dermatitis can develop. Exposure to poison isis, poison oak, and poison sumac cause more cases of allergic contact dermatitis than all other plant families combined. People of all ethnicities and skin types are at risk for developing poison isis dermatitis. The severity of the reaction tends to decrease with age, especially in people who have had mild reactions inthe past. People in occupations such as firefighting, forestry, and farming are at a higher risk ofpoison isis dermatitis because of repeated exposure to toxic plants. POISON ISIS CAUSES Poison isis, poison oak, and poison sumac plants all contain a compound called urushiol, which is a light, colorless oil that is found on the fruit, leaves, stem, root, and sap of the plant. When urushiol is exposed to air, it turns brown and the plant leaves develop small black spots. There are several ways that you can be exposed to urushiol: By touching the sap or rubbing against the leaves of the toxic plant By touching something that has urushiol on it, such as animal fur or garden tools By breathing in smoke when toxic plants are burned Ginkgo fruit and the skin of mangoes also contain urushiol and can produce symptoms similar to poison isis dermatitis. IDENTIFYING POISON ISIS Leaves of three, let them be is a phrase often used to identify plants that cause poison isis dermatitis. Generally, poison isis and poison oak have three leaves with flowering branches on a single stem. Poison sumac has five, seven, or more leaves that angle upward toward the top of the stem. Some types of poison isis produce a green or off-white fruit in [place], and in some cases, black dots form on the plants' leaves. It is not always possible to identify the plant by the leaves alone since the appearance can vary depending upon the season, growth cycle, region, and climate. Poison isis, oak, and sumac plants grow in many areas across the [facility] and throughout the world. East of the [facility], poison isis commonly grows as a climbing vine. In the [place] area and west, poison isis tends to grow low to the ground as a shrub. Poison oak most often grows west of the [facility], and poison sumac inhabits boggy areas in the southeastern part of the [facility]. The plants are not usually found in areas at high elevations or in desert climates. POISON ISIS SIGNS AND SYMPTOMS After contact with urushiol, approximately 50 percent of people develop signs and symptoms of poison isis dermatitis. The symptoms and severity differ from person to person. The most common signs and symptoms of poison isis dermatitis are: Intense itching Skin swelling Skin redness These symptoms usually develop within four hours to four days after exposure to the urushiol. Afterthe initial symptoms, you will develop fluid-filled blisters in a line or streak-like pattern. The symptoms are worst within 1 to 14 days after touching the plant, but can develop up to 21 days laterif you have never been exposed to urushiol before. The blisters can occur at different times in different people; blisters can develop on the arms several days after blisters on the hands developed. This does not mean that the reaction is spreading from one area of the body to the other. The fluid that leaks from blisters does not cause symptoms. Poison isis dermatitis is not contagious and cannot be passed from person to person. However, urushiolcan be carried under fingernails and on clothes; if another person comes in contact with the urushiol, they can develop poison isis dermatitis. POISON ISIS DIAGNOSIS Poison isis is usually diagnosed based upon how your skin looks. Further testing is not usually necessary. POISON ISIS TREATMENT Poison isis dermatitis usually resolves within one to three weeks without treatment. Treatments thatmay help relieve the itching, soreness, and discomfort caused by poison isis dermatitis include: Skin treatments For some people, adding oatmeal to a bath, applying cool wet compresses, and applying calamine lotion may help to relieve itching. Once the blisters begin weeping fluid, astringents containing aluminum acetate (Rinku's solution) and [place] may help to relieve the rash. Antihistamines Antihistamines may help to relieve itching caused by poison isis dermatitis. Some antihistamines make you sleepy while others do not. Antihistamines that make you sleepy (eg, diphenhydramine [Benadryl ]) may be helpful if you have trouble sleeping due to itching. Other formulas (eg, loratadine [Claritin ], cetirizine [Zyrtec ]) may be preferable for daytime. Steroid creams Steroid creams may be helpful if they are used during the first few days after symptoms develop. Low potency steroid creams, such as 1 percent hydrocortisone (available in the [place] without prescription) are not usually helpful. A stronger prescription formula may be helpful. Steroids If you develop severe symptoms or the rash covers a large area (especially on the face or genitals), you may need steroid pills or injections (eg, prednisone) to help relieve itching and swelling. Pills are usually given for 14 to 21 days, with the dosage slowly decreased over time. Antibiotics Skin infections are a potential complication of poison isis, especially if you scratch your skin. If you develop a skin infection because of poison isis dermatitis, you may need antibioticsto treat the infection. Other treatments An herbal therapy called jewelweed extract has been used to treat poison isis dermatitis, although it has not been proven effective. You should not use antihistamine creams or lotions, anesthetic creams containing benzocaine, or antibiotic creams containing neomycin or bacitracin to the skin. These creams or ointments could make the rash worse. POISON ISIS PREVENTION The best way to prevent poison isis dermatitis is to identify and avoid the plants that cause it. These plants can irritate the skin year round, even during the winter months, and can still cause a reaction years after the plant dies. Wear protective clothing, including long sleeves and pants when working in areas where toxic plantsmay be found. Keep in mind that the resin and oils from the toxic plants can be carried on clothing, pets, and under fingernails. Wear heavy-duty vinyl gloves when doing yard work or gardening. The oils from toxic plants can seepthrough latex or rubber gloves. After coming in contact with poison isis, remove any contaminated clothing and gently wash (do not scrub or rub) you skin and under the fingernails with mild soap and water as soon as possible. Washing within two hours after exposure can reduce the likelihood and severity of symptoms; washing the skin after you have symptoms will not help. Creams and ointments that create a barrier between the skin and the urushiol oil may be somewhat effective for people who are frequently exposed to poison isis. Bentoquatam (Isis Block ) is one type ofbarrier cream that may prevent poison isis dermatitis. It must be reapplied every four hours and it leaves a gareth residue on the skin. Avoid burning poisonous vegetation, which can disperse the plant particles in the smoke, irritate the skin, and cause poison isis dermatitis. documented in this encounter[facility] History of Present illness Narrative* Brittani May APRN.CNP - 10/15/2021 1:15 PM EDT This note was created using Appetite+riter. Subjective Izzy Rosenthal is a 66 year old female. 66 year old female with PMH asthma, GERD, presents for rash. Acute onset Wednesday Red, raised, blistering and itchy Right forearm, right face, and right hand. States earlier in the day she was pulling weeds and working on gravel. Denies SOB or dyspnea. Denies CP. Denies fever or chills Denies malaise or fatigue. Has used bleach and Isis Dry The history is provided by the patient. No world language teacher was used. Rash This is a new problem. The current episode started in the past 7 days. The problem has been waxing and waning since onset. Location: left arm, left face. The rash is characterized by redness and itchiness. She was exposed to plant contact. Pertinent negatives include no anorexia, congestion, cough,diarrhea, eye pain, facial edema, fatigue, fever, joint pain, nail changes, rhinorrhea, shortness of breath, sore throat or vomiting. Treatments tried: bleach and isis dry. The treatment provided no relief. Her past medical history is significant for asthma. There is no history of allergies, eczema or varicella. PAST MEDICAL HISTORY Diagnosis Date Chiu esophagus Ciro Coto MD. EGD. Elimination diet successful. 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 Completed menopause. Rectal prolapse Unspecified asthma(493.90) PAST SURGICAL HISTORY Procedure Laterality Date ESOPHAGOGASTRODUODENOSCOPY_*FL 12/20/2018 with biopsies MASTECTOMY,SIMPLE 01-10-02 left simple mastectomy with sentinel lymph node bx. MASTECTOMY,SIMPLE 09/04/2003 right side ALLERGIES Erythromycin Base MEDICATIONS azelastine (ASTELIN) 0.1% nasal spray Use 1 [place] in each nostril twice daily. fluticasone-vilanterol (BREO ELLIPTA) 200-25 mcg/dose inhaler Inhale 1 Inhalation as instructed once daily. Taking 100 instead of 200 pantoprazole sodium (PROTONIX ORAL) Take by mouth. B infantis/B ani/B tanner/B bifid (PROBIOTIC 4X ORAL) Take by mouth. loratadine-pseudoephedrine ER (CLARITIN-D 12 HOUR) 5-120 mg per tablet Take 1 tablet by mouth once daily. calcium-cholecalciferol, D3, (OSCAL+D 250) 250-125 mg-unit per tablet Take 1 tablet by mouth once daily. COMPOUNDED PRESCRIPTION Takes Replenex 3 pills daily multivitamins(DAILY MULTIVITAMIN TAB) Take one(1) tablet daily. predniSONE (DELTASONE) 10 mg tablet Take 6 tabs for 3 days, then 4 tabs for 3 days, then 2 tabs for3 days then 1 tab for 3 days with food. ARNUITY ELLIPTA 200 mcg/actuation 1 PUFF DAILY WITH GOOD ORAL CARE FAMILY HISTORY Problem Relation Age of Onset other (Other) Father Stomach rotted out. Allergies Brother Breast Cancer Maternal Grandmother 65 Asthma Maternal Grandmother Breast Cancer Sister diagnosed at age 44 Social History Tobacco Use Smoking status: Never Smoker Smokeless tobacco: Never Used Tobacco comment: 2 parents smoked in children home. No ETS in adulthood. Vaping Use Vaping Use: Never used Substance Use Topics Alcohol use: Yes Comment: rare Drug use: No Review of Systems Constitutional: Negative for activity change, appetite change, chills, diaphoresis, fatigue and fever. HENT: Negative for congestion, rhinorrhea and sore throat. Eyes: Negative for pain, discharge and itching. Respiratory: Negative for apnea, cough, choking, chest tightness and shortness of breath. Cardiovascular: Negative for chest pain, palpitations and leg swelling. Gastrointestinal: Negative for abdominal pain, anorexia, diarrhea, nausea and vomiting. Musculoskeletal: Negative for arthralgias, back pain, gait problem and joint pain. Skin: Positive for rash. Negative for color change, nail changes and pallor. Allergic/Immunologic: Negative for environmental allergies, food allergies and immunocompromised state. Neurological: Negative for dizziness, facial asymmetry and headaches. Hematological: Negative for adenopathy. Does not bruise/bleed easily. Psychiatric/Behavioral: Negative for agitation and behavioral problems. Objective BP 98/66 Pulse 77 Temp 36.7 C (98.1 F) Resp 20 Wt 55.2 kg (121 lb 9.6 oz) LMP 12/11/2006 SpO2 98% BMI 19.63 kg/m Physical Exam Vitals and nursing note reviewed. Constitutional: General: She is not in acute distress. Appearance: Normal appearance. She is normal weight. She is not ill-appearing, toxic-appearing or diaphoretic. HENT: Head: Normocephalic and atraumatic. Right Ear: Ear canal and external ear normal. Left Ear: Ear canal and external ear normal. Nose: Nose normal. No congestion or rhinorrhea. Mouth/Throat: Mouth: Mucous membranes are moist. Pharynx: No oropharyngeal exudate or posterior oropharyngeal erythema. Eyes: General: Right eye: No discharge. Left eye: No discharge. Extraocular Movements: Extraocular movements intact. Conjunctiva/sclera: Conjunctivae normal. Pupils: Pupils are equal, round, and reactive to light. Cardiovascular: Rate and Rhythm: Normal rate and regular rhythm. Pulses: Normal pulses. Heart sounds: Normal heart sounds. No murmur heard. No friction rub. Pulmonary: Effort: Pulmonary effort is normal. No respiratory distress. Breath sounds: Normal breath sounds. No stridor. No wheezing, rhonchi or rales. Chest: Chest wall: No tenderness. Abdominal: General: Abdomen is flat. There is no distension. Palpations: Abdomen is soft. There is no mass. Tenderness: There is no abdominal tenderness. There is no right CVA tenderness, left CVA tenderness, guarding or rebound. Hernia: No hernia is present. Musculoskeletal: General: No swelling, tenderness, deformity or signs of injury. Normal range of motion. Cervical back: Normal range of motion and neck supple. No rigidity. Right lower leg: No edema. Left lower leg: No edema. Lymphadenopathy: Cervical: No cervical adenopathy. Skin: General: Skin is warm and dry. Capillary Refill: Capillary refill takes less than 2 seconds. Coloration: Skin is not jaundiced or pale. Findings: Rash (Right hand, right forearm, and right neck wtih macupapupular erythematic, raised and pruritic rash. No streaking. No abscess. ) present. No bruising, erythema or lesion. Neurological: General: No focal deficit present. Mental Status: She is alert and oriented to person, place, and time. Cranial Nerves: No cranial nerve deficit. Sensory: No sensory deficit. Motor: No weakness. Coordination: Coordination normal. Gait: Gait normal. Psychiatric: Mood and Affect: Mood normal. Behavior: Behavior normal. Thought Content: Thought content normal. Judgment: Judgment normal. Assessment and Plan ASSESSMENT/PLAN: 1. Dermatitis due to plant - ICD9: 692.6, ICD10: L25.5 - Oral Steriod tx -Prednisone taper - Anti itch therapy of Calomine lotion, Oatmeal baths and Oral Benydryl recommended prn - discussed skin care of rash - follow up if symptoms persist or worsen. Brittani May APRN.GROUND OPERATIONS SUPERINTENDENT documented in this encounterDoctors Hospital01-11-2022 History of Present illness Narrative* Jackelyn Krueger RT(R) - 05/20/2021 7:50 PM EST Radiology Service Progress Note PATIENT NAME: Izzy Rosenthal DATE OF SERVICE: May 20, 2021 TIME: 7:48 PM PATIENT IDENTITY VERIFICATION COMPLETED USING TWO (2) IDENTIFIERS: Name and Date of confirmedby patient verbally. FALL SCREENING: Has the patient had 2 falls in the last year or 1 fall with injury or currently using an Ambulatory Assistive Device (Walker, Cane, Wheelchair, Crutches, etc.)? No PATIENT GENDER DATA: Female. status: : No status: NO. PATIENT RELEVANT IMPLANT DATA REVIEWED: Not Applicable RADIOLOGY DEPARTMENT: General X-ray: Exam(s) Completed: Chest X-Ray PERIPHERAL IV DATA: Not applicable SIGNED BY: RT [place](R) May 20, 2021 7:48 PM documented in this encounterDoctors Hospital12-17-2021 History of Present illness Narrative* Elyssa Diehl RT(R) - 04/25/2021 2:00 PM EST Radiology Service Progress Note PATIENT NAME: Izzy Rosenthal DATE OF SERVICE: April 25, 2021 TIME: 1:59 PM PATIENT IDENTITY VERIFICATION COMPLETED USING TWO (2) IDENTIFIERS: Name and Date of confirmedby patient verbally. FALL SCREENING: Has the patient had 2 falls in the last year or 1 fall with injury or currently using an Ambulatory Assistive Device (Walker, Cane, Wheelchair, Crutches, etc.)? No PATIENT GENDER DATA: Female. status: : No status: NO. PATIENT RELEVANT IMPLANT DATA REVIEWED: Not Applicable RADIOLOGY DEPARTMENT: General X-ray: Exam(s) Completed: Chest X-Ray PERIPHERAL IV DATA: Not applicable SIGNED BY: RT Demetrio(R) April 25, 2021 1:59 PM documented in this encounterDoctors Hospital07-27-2002 History of Past illness Narrative* Problem Noted Date Resolved Date Nonspecific abnormal finding s on radiological or other examinations of the breast 12/03/2001 08/01/2013 documented as of this encounter (statuses as of 10/15/2021) [facility] of Past illness Narrative* Problem Noted Date Resolved Date Nonspecific abnormal finding s on radiological or other examinations of the breast 12/03/2001 08/01/2013 documented as of this encounter (statuses as of 03/10/2022) [address]27-2002 History of Past illness Narrative* Problem Noted Date Resolved Date Nonspecific abnormal finding s on radiological or other examinations of the breast 12/03/2001 08/01/2013 documented as of this encounter (statuses as of 03/19/2022) [address]27-2002 History of Past illness Narrative* Problem Noted Date Resolved Date Nonspecific abnormal finding s on radiological or other examinations of the breast 12/03/2001 08/01/2013 documented as of this encounter (statuses as of 06/27/2022) [address]27-2002 History of Past illness Narrative* Problem Noted Date Resolved Date Nonspecific abnormal finding s on radiological or other examinations of the breast 12/03/2001 08/01/2013 documented as of this encounter (statuses as of 07/09/2022) [address]27-2002 History of Past illness Narrative* Problem Noted Date Diagnosed Date Resolved Date Nonspecific abnormal finding s on radiological or other examinations of the breast 12/03/200107/09 documented as of this encounter (statuses as of 03/14/2023) [address]27-2002 History of Past illness Narrative* Problem Noted Date Diagnosed Date Resolved Date Nonspecific abnormal finding s on radiological or other examinations of the breast 12/03/200107/09 documented as of this encounter (statuses as of 03/20/2023) [facility] Future Appointments Appointment Date:02/09/2024 04:00:00 PM Scheduled Provider:JUAN KNOX DO Location:[facility] Appointment Type:PC OV [facility] Evaluation + Plan note Future Appointments Appointment Date:03/28/2024 12:30:00 PM Scheduled Provider: Location:Heart Lab Appointment Type:CV Procedure - Heart Lab/Hybrid OR [facility] Evaluation + Plan note Future Appointments Appointment Date:04/28/2024 01:30:00 PM Scheduled Provider:SINDY TOVAR Location:[facility] Appointment Type:CV OV Diagnostic Tests Pending * Complete Blood Count 03/28/24 * Basic Metabolic Panel 03/28/[address] [facility] Evaluation + Plan note Future Appointments Appointment Date:04/28/2024 01:30:00 PM Scheduled Provider:SINDY TOVAR Location:[facility] Appointment Type:CV OV Diagnostic Tests Pending * Urine Culture 04/17/24 [facility] Evaluation note* Diagnosis Dermatitis due to plant- Primary Contact dermatitis and other eczema due to plants (except food) documented in this encounter [facility] Hospital[facility] noteNo assessment information availableWKettering [facility] Work Phone: Evaluation note* Diagnosis Encounter for gynecologic examination for high-risk patient covered by Medicare- Primary Routine gynecological examination Discoloration of vulva Other specified noninflammatory disorder of vulva and perineum Atrophy of vagina Postmenopausal atrophic vaginitis Vulvar itching Pruritus of genital organs Encounter for screening for osteoporosis Special screening for osteoporosis Asymptomatic postmenopausal state documented in this encounter [facility]* Diagnosis Viral illness- Primary Unspecified viral infection, in conditions classified elsewhere and of unspecified site URI, acute Acute upper respiratory infections of unspecified site [facility] Diagnosis UTI symptoms- Primary Other symptoms involving urinary system [facility] Diagnosis Recurrent UTI (urinary tract infection)- Primary Urinary tract infection, site not specified [facility]* Diagnosis Encounter for gynecologic examination for high-risk patient covered by Medicare Routine gynecological examination Encounter for screening for osteoporosis Special screening for osteoporosis Asymptomatic postmenopausal state [facility] 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- Primary Routine gynecological examination Postmenopausal atrophic vaginitis History of bilateral breast cancer [facility]* Diagnosis Dermatitis due to plants, including poison isis, sumac, and oak- Primary Contact dermatitis and other eczema due to plants (except food) [facility] Diagnosis Encounter to establish care- Primary Other reasons for seeking consultation Hx of gastroesophageal reflux (GERD) Personal history of other diseases of digestive system Mild intermittent asthma without complication Unspecified asthma Need for prophylactic vaccination and inoculation against influenza Need for prophylactic vaccination against Streptococcus pneumoniae (pneumococcus) Need for prophylactic vaccination against streptococcus pneumoniae (pneumococcus) 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) Annual physical exam Routine general medical examination at a health care facility Viral illness Unspecified viral infection, in conditions classified elsewhere and of unspecified site URI, acute Acute upper respiratory infections of unspecified site [facility] Diagnosis Encounter to establish care- Primary Other reasons for seeking consultation Hx of gastroesophageal reflux (GERD) Personal history of other diseases of digestive system Mild intermittent asthma without complication (HCC) Unspecified asthma Need for prophylactic vaccination and inoculation against influenza Need for prophylactic vaccination against Streptococcus pneumoniae (pneumococcus) Need for prophylactic vaccination against streptococcus pneumoniae (pneumococcus) 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) Annual physical exam Routine general medical examination at a health care facility Dysuria- Primary [facility] Diagnosis Onset Date Resolution Status Admit Date Screening for colon cancer acute October 05, 2024 7:20am Chronic cough chronic October 05, 025 7:20am [facility] Work Phone: Hospital course Narrative No data available for this section [facility] Hospital Discharge instructions No data available for this section [facility] Progress note No data available for this section [facility] Progress note Author Mia Whalen [facility] Note Date/Time October 05, 2024 7:53a m [facility] [address] [place] [address] OFFICE VISIT Date of Service: 10/05/24 MR#: [id number] Acct: [id number] Name: IZZY ROSENTHAL Rep #: [id number] : 1955 Provider: BOBBY Burnett Age/Sex: 69/F Location: [facility] Status: Signed Intake Vital Signs 11/11/22 07:44 Height 5 ft 5 in Intake Visit Reasons: Pre colon Chief Complaint: chronic cough Allergies erythromycin base Adverse Reaction (Mild, Verified 11/11/22 07:47) Upset Stomach tomato Adverse Reaction (Mild, Verified 11/11/22 07:31) Upset Stomach potato Adverse Reaction (Verified 11/11/22 07:31) Upset Stomach Medications ?Medication ?Instructions ?Recorded ?Confirmed ?Type Saccharomyces boulardii 250 mg 5,000 mmu cells PO JUAQUIN Y 05/05/22 11/27/22 History capsule (Digest Probiotic (S.boulardii)) albuterol sulfate 90 mcg/actuation 1 inh inhalation ON CE 05/05/22 11/27/22 History aerosol inhaler (ProAir HFA) azelastine 137 mcg (0.1 %) nasal 1 spray intranasal BI D 05/05/22 11/27/22 History spray calcium-vit D3-ferrous fumarate 1 tab PO DAILY 2 11/27/22 History 600 mg-125 unit-18 mg tablet glucosamine sulfate 500 mg tablet 500 mg PO DAILY 04/1011/27/22 History (Glucosamine) montelukast 10 mg tablet 10 mg PO DAILY 05/05/2211/08 History (Singulair) multivitamin 1 tab PO DAILY 05/05/2211/08 History pantoprazole 20 mg tablet,delayed 20 mg PO DAILY 05/0510/05/24 History release (Protonix) cholecalciferol (vitamin D3) 25 25 mcg PO DAILY 11/27/22 History mcg (1,000 unit) capsule (Vitamin D3) loratadine-pseudoephedrine ER 10 1 tab PO DAILY 11/27/22 History mg-240 mg tablet,extended [id number] (Claritin-D 24 Hour) triamcinolone acetonide 55 mcg 1 spray intranasal JUAQUIN Y 11/05/22 11/27/22 History nasal spray aerosol (Nasacort Allergy) vitamin B12 0.5 mg-folic acid 1 mg 1 tab PO DAILY 10/0911/27/22 History tablet Have you fallen in the past year?: No Nurse's Note: OV 10/05/24 Pt here for a f/u and reports indigestion. Pt taking pantoprazole daily. Denies n/v/d/c and bloody stools. PFSH Medical History Allergic rhinitis Anemia Chronic cough Dietary restriction GERD (gastroesophageal reflux disease) History of ulceration Hx of fracture of wrist HX: breast cancer Mild persistent asthma Non-smoker Osteopenia Post-menopausal Rectal prolapse Wears contact lenses Wears glasses Wears hearing aid Surgical History H/O bilateral mastectomy History of esophagogastroduodenoscopy (EGD) Hx of colonoscopy Social History Smoking Status: Never smoker HPI HPI Chief Complaint: chronic cough Details: IZZY ROSENTHAL, is a 69 F who presents to the office today for f/u. [facility] established in 2022 with chronic cough. Pt previously seeing GI who treated symptoms with amitriptyline which was ineffective. EGD 11.11.22 small hiatal hernia; Treviño placed Treviño total [place]eester 6.7. Day 1 8.1 with upright position>supine. Day 2 total 1.6 with upright>supine Last OV 7 Continues chronic cough. On PPI Biochemical work up 11.27.22; CBC, CMP, Copper, immunologic all wnl OV 5.29.25 Pt here today to be scheduled for screening colonoscopy. last colonoscopy was 7 years ago. She continues with dry cough. She is taking Protonix however the only thing that has helped is cough drops. It is not worse with eating and she does not have difficulty with swallowing. ROS Const Constitutional: No fatigue, fever(s) or weight change ENT ENT: No difficulty swallowing Gastro GI: Positive for bloating and excessive flatus; No abdominal pain, belching, change in bowel habits, change in stool character, coffee ground emesis, constipation, cramping, diarrhea, heartburn, difficulty swallowing, feeling full early, incontinent of stools, Vomiting blood/hematemesis, Blood in stool, loose stools, Black,tarry stools, nausea/dyspepsia, pain with swallowing, vomiting or other Musc Musculoskeletal: No joint pain Skin Skin: No yellowing of the eye or itchy eyes Psych Psychiatric: No anxiety and No depression Endo Endocrine: No fatigue or weight change Aller/Imm Allergy/Immunologic: No itchy eyes Micheal/Lymp Hematologic/Lymphatic: Positive for easy bruising; No easy bleeding Exam Const General: healthy appearing and comfortable Nutritional Appearance: thin Chest Chest palpation & inspection: normal inspection of the chest Resp Effort & Inspection: normal respiratory effort Auscultation: Bilateral: Clear to Auscultation Cardio Rate: regular rate Rhythm: regular rhythm GI Inspection: normal to inspection Auscultation: normal bowel sounds Palpation: soft Assessment and Plan Assessment and Plan (1) Chronic cough: Status: Chronic Plan: Izzy is a 69 yo female pt here today for pre colonoscopy consultation. Pt established with [facility] in 2022 for issues with a chronic cough. She underwent EGD which did not show any abnormalities. Autoimmune work up for Sjogren and scleroderma was without abnormality. She continues to have cough with the only remedy being a cough drop. I have advised she seen ENT for f/u regarding this. her last colonoscopy was about 7 years ago with recommendation for repeat in 7 years. She will be scheduled for this today. -Colonoscopy -f/u with ENT for cough (2) Screening for colon cancer: Status: Acute Coding Level of Care Code Off vis,est,level 3 Diagnoses Chronic cough R05.3 Screening for colon cancer Z12.11 Clinical Quality Measures Falls Risk Screening/Assistive Devices Have you fallen in the past year?: No 10/05/24 0753 <Electronically signed by Mia ROSALES> Date _ Mia ROSALES Cosigner Signature: Date (if applicable) CC: ~ [facility] Work Phone: Reason for referral (narrative)No reason for referral information availableBlKaiser Foundation Hospital Work Phone: Summary Purpose Family History No Family History Records FoundNo Family History Records Found No data available for this section No Family History Records Found No data available for this section No data available for this section No data available for this section No Family History Records Found No data available for this section No Family History Records FoundNo Family History Records FoundNo Family History Records Found Advance Directives No Advanced Directives Records FoundDocuments on File Type Date 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 Advance Directive(s) 01/27/2018 8:55 AM Advance Directive Response Recorded Date/ Time Living Will No November 05, 2022 12:22pm Power of Loan Servicing Representative No November 05 12:22pm Chief Complaint and Reason for Visit Chief Complaint COUGH Chief Complaint Admit Date Pre colon October 05, 2024 7:20a m Reason for Visit Admit Date Screening for colon cancer October 05 7:20am Chronic cough October 05, 2024 7:20a m Additional Source Comments INFORMATION SOURCE (unrecogn ized section and content) DATE CREATED AUTHOR 12/01/2019 [facility] DATE CREATED AUTHOR AUTHOR'S ORGANIZ ATION 05/14/2022 [facility] DATE CREATED AUTHOR AUTHOR'S ORGANIZ ATION 01/13/2024 [facility] ([place]) DATE CREATED AUTHOR AUTHOR'S ORGANIZ ATION 04/07/2024 [facility] DATE CREATED AUTHOR AUTHOR'S ORGANIZ ATION 09/13/2024 [facility] DATE CREATED AUTHOR AUTHOR'S ORGANIZ ATION 10/12/2024 [facility] DATE CREATED AUTHOR AUTHOR'S ORGANIZ ATION 12/04/2024 [facility] Source Comments (unrecognize d section and content) In the event this informatio n is protected by the Federal Confidentiality of Alcohol and Drug Abuse Patient Records regulations: The Federal rules restrict any use of the information to criminally investigate or prosecute any alcohol or drug abuse patient.Do[facility] HospitalIn the event this information is protected by the Federal Confidentiality of Alcohol and Drug Abuse Patient Records regulations: The Federal rules restrict any use of the information to criminally investigate or prosecute any alcohol or drug abuse patient.Doctors HospitalIn the event this information is protected by the Federal Confidentiality of Alcohol and Drug Abuse Patient Records regulations: The Federal rules restrict any use of the information to criminally investigate or prosecute any alcohol or drug abuse patient.[facility] HospitalIn the event this information is protected by the Federal Confidentiality of Alcohol and Drug Abuse Patient Records regulations: The Federal rules restrict any use of the information to criminally investigate or prosecute any alcohol or drug abuse patient.[facility] HospitalIn the event this information is protected by the Federal Confidentiality of Alcohol and Drug Abuse Patient Records regulations: The Federal rules restrict any use of the information to criminally investigate or prosecute any alcohol or drug abuse patient.[facility] HospitalIn the event this information is protected by the Federal Confidentiality of Alcohol and Drug Abuse Patient Records regulations: The Federal rules restrict any use of the information to criminally investigate or prosecute any alcohol or drug abuse patient.[facility] HospitalIn the event this information is protected by the Federal Confidentiality of Alcohol and Drug Abuse Patient Records regulations: The Federal rules restrict any use of the information to criminally investigate or prosecute any alcohol or drug abuse patient.[facility] HospitalIn the event this information is protected by the Federal Confidentiality of Alcohol and Drug Abuse Patient Records regulations: The Federal rules restrict any use of the information to criminally investigate or prosecute any alcohol or drug abuse patient.[facility] HospitalIn the event this information is protected by the Federal Confidentiality of Alcohol and Drug Abuse Patient Records regulations: The Federal rules restrict any use of the information to criminally investigate or prosecute any alcohol or drug abuse patient.[facility] HospitalIn the event this information is protected by the Federal Confidentiality of Alcohol and Drug Abuse Patient Records regulations: The Federal rules restrict any use of the information to criminally investigate or prosecute any alcohol or drug abuse patient.[facility] HospitalIn the event this information is protected by the Federal Confidentiality of Alcohol and Drug Abuse Patient Records regulations: The Federal rules restrict any use of the information to criminally investigate or prosecute any alcohol or drug abuse patient.[facility] HospitalIn the event this information is protected by the Federal Confidentiality of Alcohol and Drug Abuse Patient Records regulations: The Federal rules restrict any use of the information to criminally investigate or prosecute any alcohol or drug abuse patient.[facility] HospitalIn the event this information is protected by the Federal Confidentiality of Alcohol and Drug Abuse Patient Records regulations: The Federal rules restrict any use of the information to criminally investigate or prosecute any alcohol or drug abuse patient.[facility] HospitalIn the event this information is protected by the Federal Confidentiality of Alcohol and Drug Abuse Patient Records regulations: The Federal rules restrict any use of the information to criminally investigate or prosecute any alcohol or drug abuse patient.[facility] HospitalIn the event this information is protected by the Federal Confidentiality of Alcohol and Drug Abuse Patient Records regulations: The Federal rules restrict any use of the information to criminally investigate or prosecute any alcohol or drug abuse patient.[facility] HospitalIn the event this information is protected by the Federal Confidentiality of Alcohol and Drug Abuse Patient Records regulations: The Federal rules restrict any use of the information to criminally investigate or prosecute any alcohol or drug abuse patient.[facility] Reason for Visit (unrecogniz ed section and content) Reason Comments Rash poison x5 days Reason Comments Well Woman Reason Comments Cough Cough, sinus, fatigu e and chest congestion x 1 week Reason Comments UTI Theres an odor to m y urine and that's when I know. Reason Comments UTI Just had uti, has a lot of burning and urgency. 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 Relationship Specialty Start Date End Date Pamela Kingston MD [address] [place] [address] PCP - General Internal Medicine 05/21/16 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 Connor Montaño MD Family Provider Active Dr. Pamela Kingston MD Primary Care Provider Active Team Status: Active Member Role Status Dates Dr. Pamela Kingston MD Primary Care Provider Active Dr. Homero Chou DO Attending Provider Active Team Status: Inactive Member Role Status Dates Dr. Pamela Kingston MD Primary Care Provider, Referring Provider Active Dr. 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 Relationship Specialty Start Date End Date Pamela Kingston MD [address] [place] [address] PCP - General Internal Medicine 05/21/16 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 Relationship Specialty Start Date End Date Pamela Kingston MD [address] [place] [address] PCP - General Internal Medicine 05/21/16 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 Relationship Specialty Start Date End Date Pamela Kingston MD [address] [place] [address] PCP - General Internal Medicine 05/21/16 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 Relationship Specialty Start Date End Date Pamela Kingston MD [address] [place] [address] PCP - General Internal Medicine 05/21/16 Maryam Yanez PA-C [address] [place] [address] [employer] T[employer]or Family Medicine 04/16/24 Leticia Angelo APRN.CNP [address] [place] [address] Coat Tailor Internal Medicine 04/16/24 Sallie Pollock PA-C [address] [place] [address] Coat Tailor Family Medicine 04/16/24 Team Status: Active Member Role Status Dates No Primary Care Physician Primary Care Provider Active Team Status: Inactive Member Role Status Dates No Primary Care Physician Primary Care Provider Active Start: October 05, 2024 End: October 05, 2024 No Primary Care Physician Referring Provider Active Start: October 05, 2024 End: October 05, 2024 BOBBY Burnett Attending Provider Active Start: October 05, 2024 End: October 05, 2024 Goals (unrecognized section and content) Goals may be documented in a n alternate section No data available for this section No data available for this section No data available for this section No data available for this section No data available for this sectionGoals may be documented in an alternate section FOR RECORDS PERTAINING TO PATIENTS WHO ARE OR HAVE BEEN ENROLLED IN A CHEMICAL DEPENDENCY/SUBSTANCEABUSE PROGRAM, SOME INFORMATION MAY BE OMITTED. This clinical summary was aggregated from multiple sources. Caution should be exercised in using it in the provision of clinical care. This summary normalizes information from multiple sources, and as a consequence, information in this document may materially change the coding, format and clinical context of patient data. In addition, data may be omitted in some cases. CLINICAL DECISIONS SHOULD BE BASED ON THE PRIMARY CLINICAL RECORDS. [facility]. provides no warranty or guarantee of the accuracy or completeness of information in this document.
[2024-12-06] MEDS: Lactated Ringers 1,000 ML 15 ML IV (06:11)
--- NOTE | 2024-12-06 06:20 | PCM.PRE.AN2 ---
ASA Classification* ASA Classification ASA Classification: 2 Assessment & Plan Anesthesia* Anesthesia Assessment Anesthesia Assessment: Discussed sedation and/or anesthesia options, risks, benefits, and alternatives with patient/parents/legal guardian/POA. Questions invited. The patient/parents/legal guardian/POA seems to understand and agrees to proceed with anesthesia plan. Reviewed the physical assessment, medical history, allergy history and patient home medications list prior to surgery/procedure/anesthetic and documented any changes. Performed airway and anesthesia risk assessments. Anesthesia Type Anesthesia Type: MAC History Source History Obtained from:: Patient and Chart Anesthesia Focused Assessment* Temperature: 97.2 F Pulse Rate: 57 Blood Pressure: 123/85 Respiratory Rate: 16 Pulse Ox: 100 Oxygen Delivery Method: Room Air Airway Assessment Mouth opens: >3 cm Mallampati Score: I Teeth Condition: Intact Neck Range of motion (ROM): Full ROM Labs Anesthesia Preop lab: CBC WBC 4.0 K/mm3 (4.4-11.0) L 11/27/22 10:53 11/27/22 RBC 4.40 M/mm3 (4.2-5.4) 11/27/22 10:53 11/27/22 Hgb 13.5 g/dL (12.0-15.0) 11/27/22 10:53 11/27/22 Hct 41.6 % (37-47) 11/27/22 10:53 11/27/22 Plt Count 246 K/mm3 (150-450) 11/27/22 10:53 11/27/22 CHEMISTRY Potassium 3.7 mmol/L (3.5-5.1) 11/27/22 10:53 11/27/22 Sodium 140 mmol/L (136-145) 11/27/22 10:53 11/27/22 BUN 10 mg/dL (7-18) 11/27/22 10:53 11/27/22 Creatinine 0.95 mg/dL (0.55-1.02) 11/27/22 10:53 11/27/22 Glucose 87 mg/dL (74-106) 11/27/22 10:53 11/27/22 COAG Pre-Assessment Diagnosis/Proposed Procedure Planned Operative Procedure(s): COLONOSCOPY Anesthesia History 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 When Was Last Pacemaker Check QUESTION #4 FULL TEXT: You/Your Family Experience fever (hyperthermia) with Anesthesia Last Oral Intake Last Oral intake: Last Oral Intake NPO since 23:00 12/06/24 06:02 Meds taken in AM with sips of water? Meds patient instructed to take am of surgery PONV PONV - printed circuit board reworker: PONV - printed circuit board reworker Female Yes 11/30/24 15:20 HX of Motion Sickness Yes 11/30/24 15:20 HX of N/V After Surgery No 11/30/24 15:20 Non-Smoker Yes 11/30/24 15:20 Duration of Surgery greater No 11/30/24 15:20 than 60 minutes Number of Risk Factors 3 11/30/24 15:20 PONV Score Moderate Risk 11/30/24 15:20 Height & Weight Height & Weight: Anesthesia: Height & Weight Height 5 ft 5 in 12/06/24 06:02 Weight: 53 kg 12/06/24 06:02 Body Mass Index (BMI) 19.4 12/06/24 06:02 Respiratory Assessment Respiratory Assessment - printed circuit board reworker: Respiratory Tract Infection Hx - printed circuit board reworker Hx Respiratory Tract Infection No 11/30/24 15:20 STOP Sleep Apnea STOP Sleep Apnea - printed circuit board reworker: STOP Sleep Apnea - printed circuit board reworker Hx Hypertension No 11/30/24 15:20 Hx Sleep Apnea No 11/30/24 15:20 CPAP BIPAP Do you snore loudly (louder No 11/30/24 15:20 than talking or can be heard Do you often feel tired/ No 11/30/24 15:20 fatigued/ sleepy during daytime? Has anyone observed you stop No 11/30/24 15:20 breathing during sleep? STOP Results Negative 11/30/24 15:20 QUESTION #5 FULL TEXT : Do you snore loudly (louder than talking or can be heard through closed doors)? 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 Specify any problems Hx of Preganancy in last 3 No 11/30/24 15:20 Months Nurse Filling Out Transfusion MGRIFFITH 11/30/24 15:20 & Questions: Date: 11/30/24 11/30/24 15:20 Time: 15:21 11/30/24 15:20 Patient unable to answer at this time (ie. confused, unrespo /Reproduction History /Reproductive History - printed circuit board reworker: /Reproductive Hx- printed circuit board reworker Hx Now No 11/30/24 15:20 Gestational Age (in weeks): EDC: Hx Hx Para Hx Section SAB No 11/30/24 15:20 Active Medications Active Medications: Current Medications Generic Name Dose Route Start Last Admin Trade Name Freq PRN Reason Stop Dose Admin Lactated Ringer's 1,000 mls @ 15 mls/hr 12/06/24 05:45 12/06/24 06:11 IV 15 mls/hr .Q48H MAC Administration PFSH Medical History (Updated 11/30/24 @ 15:29 by Brooke Kirkland) Cancer Easy bruising History of hiatal hernia Asthma History of echocardiogram History of mitral valve prolapse Wears hearing aid Wears contact lenses Wears glasses Post-menopausal Anemia Dietary restriction History of ulceration Rectal prolapse Non-smoker Hx of fracture of wrist HX: breast cancer Osteopenia Chronic cough GERD (gastroesophageal reflux disease) Mild persistent asthma Allergic rhinitis Home Medications ?Medication ?Instructions ?Recorded ?Last Taken ?Type Saccharomyces boulardii 250 mg 5,000 mmu cells PO DAILY 05/05/22 12/04/24 History capsule (Digest Probiotic (S.boulardii)) albuterol sulfate 90 mcg/actuation 1 inh inhalation ONCE PRN 05/05/22 Unknown History aerosol inhaler (ProAir HFA) shortness of breath or wheezing azelastine 137 mcg (0.1 %) nasal 1 spray intranasal BID 05/05/22 12/04/24 History spray calcium-vit D3-ferrous fumarate 1 tab PO DAILY 05/05/22 Unknown History 600 mg-125 unit-18 mg tablet glucosamine sulfate 500 mg tablet 500 mg PO DAILY 05/05/22 Unknown History (Glucosamine) montelukast 10 mg tablet 10 mg PO DAILY 05/05/22 12/04/24 History (Singulair) multivitamin 2 tab PO DAILY 05/05/22 Unknown History pantoprazole 20 mg tablet,delayed 20 mg PO DAILY 05/05/22 12/04/24 History release (Protonix) cholecalciferol (vitamin D3) 25 25 mcg PO DAILY 11/05/22 12/04/24 History mcg (1,000 unit) capsule (Vitamin D3) loratadine-pseudoephedrine ER 10 1 tab PO DAILY 11/05/22 12/04/24 History mg-240 mg tablet,extended [id number] (Claritin-D 24 Hour) triamcinolone acetonide 55 mcg 2 spray intranasal BID 11/05/22 12/04/24 History nasal spray aerosol (Nasacort Allergy) vitamin B12 0.5 mg-folic acid 1 mg 1 tab PO DAILY 11/05/22 12/04/24 History tablet amitriptyline 10 mg tablet 10 mg PO QHS 11/30/24 12/04/24 History fluticasone furoate 200 1 inh inhalation DAILY 11/30/24 12/04/24 History mcg/actuation blister powder for inhalation (Arnuity Ellipta) Allergy/AdvReac Type Severity Reaction Status Date / Time salmon oil AdvReac Intermediate Nausea Verified 12/06/24 06:01 tuna oil AdvReac Intermediate Nausea Verified 12/06/24 06:01 erythromycin base AdvReac Mild Upset Verified 12/06/24 06:01 Stomach tomato AdvReac Mild Upset Verified 12/06/24 06:01 Stomach potato AdvReac Upset Verified 12/06/24 06:01 Stomach Surgical History (Updated 11/30/24 @ 15:29 by Brooke Kirkland) History of cardiac catheterization History of surgery on wrist History of esophagogastroduodenoscopy (EGD) Hx of colonoscopy H/O bilateral mastectomy Social History Smoking Status: Never smoker Review of Systems (Anesthesia) ROS Narrative System reviewed and no additional complaints, except as documented.
--- NOTE | 2024-12-06 06:30 | COLBX_PTH ---
PATIENT: MANNY REINOSO LOC: EN U#:[id number] AGE/SX: 69/F ROOM: RE12/06/[address]: Dr. Homero Chou DO : 1955 BED: DIS: 12/06/2024 SPEC #: [id number] RECD: 12/06/24 09:30 STATUS: DELFINA REQ #: [id number] KAHLIL: 12/06/24 06:[address]: Homero Chou DEPT: SURGICAL PATHOLOGY RECD BY: Zain Lucio ENTERED: 12/06/24 11:24 SP TYPE: COLON BX OTHR DR: Dr. Cole Cabello DO Tissues: A - Rectum, NOS Procedures: Surgery Specimen Level IV HEADER OPERATION: Colonoscopy with biopsy PRE-OP DIAGNOSIS: Screening for colon cancer TISSUE SUBMITTED: A- Rectum biopsy MICROSCOPIC DIAGNOSIS A. Rectum, biopsy: - Mucosal prolapse. MICROSCOPIC DESCRIPTION Slides are reviewed. GROSS DESCRIPTION A. Received in fixative is one container labeled with the patient's name and designated Rectum biopsy. The specimen consists of two irregular fragments of light suarez soft tissue, each measuring 0.2 cm. The specimen is totally submitted in one cassette. [place] 12/06/2024 CPT:30431
--- NOTE | 2024-12-06 06:37 | PCM.HP.STD ---
[facility] - General General Date of Admission: 12/06/24 Date of Service: 12/06/24 Chief Complaint: Screening colonoscopy HPI Narrative MANNY REINOSO, is a 69 F who presents Chief Complaint: Screening colonoscopy I established in 2022 with chronic cough. Pt previously seeing GI who treated symptoms with amitriptyline which was ineffective. EGD 11.11.22 small hiatal hernia; Treviño placed Treviño total DeMeester 6.7. Day 1 8.1 with upright position>supine. Day 2 total 1.6 with upright>supine Last OV 7 Continues chronic cough. On PPI Biochemical work up 11.27.22; CBC, CMP, Copper, immunologic all wnl OV 5.29.25 Pt here today to be scheduled for screening colonoscopy. last colonoscopy was 7 years ago. She continues with dry cough. She is taking Protonix however the only thing that has helped is cough drops. It is not worse with eating and she does not have difficulty with swallowing. [facility] Medical History Cancer Easy bruising History of hiatal hernia Asthma History of echocardiogram History of mitral valve prolapse Wears hearing aid Wears contact lenses Wears glasses Post-menopausal Anemia Dietary restriction History of ulceration Rectal prolapse Non-smoker Hx of fracture of wrist HX: breast cancer Osteopenia Chronic cough GERD (gastroesophageal reflux disease) Mild persistent asthma Allergic rhinitis Home Medications ?Medication ?Instructions ?Recorded ?Last Taken ?Type Saccharomyces boulardii 250 mg 5,000 mmu cells PO DAILY 05/05/22 12/04/24 History capsule (Digest Probiotic (S.boulardii)) albuterol sulfate 90 mcg/actuation 1 inh inhalation ONCE PRN 05/05/22 Unknown History aerosol inhaler (ProAir HFA) shortness of breath or wheezing azelastine 137 mcg (0.1 %) nasal 1 spray intranasal BID 05/05/22 12/04/24 History spray calcium-vit D3-ferrous fumarate 1 tab PO DAILY 05/05/22 Unknown History 600 mg-125 unit-18 mg tablet glucosamine sulfate 500 mg tablet 500 mg PO DAILY 05/05/22 Unknown History (Glucosamine) montelukast 10 mg tablet 10 mg PO DAILY 05/05/22 12/04/24 History (Singulair) multivitamin 2 tab PO DAILY 05/05/22 Unknown History pantoprazole 20 mg tablet,delayed 20 mg PO DAILY 05/05/22 12/04/24 History release (Protonix) cholecalciferol (vitamin D3) 25 25 mcg PO DAILY 11/05/22 12/04/24 History mcg (1,000 unit) capsule (Vitamin D3) loratadine-pseudoephedrine ER 10 1 tab PO DAILY 11/05/22 12/04/24 History mg-240 mg tablet,extended [id number] (Claritin-D 24 Hour) triamcinolone acetonide 55 mcg 2 spray intranasal BID 11/05/22 12/04/24 History nasal spray aerosol (Nasacort Allergy) vitamin B12 0.5 mg-folic acid 1 mg 1 tab PO DAILY 11/05/22 12/04/24 History tablet amitriptyline 10 mg tablet 10 mg PO QHS 11/30/24 12/04/24 History fluticasone furoate 200 1 inh inhalation DAILY 11/30/24 12/04/24 History mcg/actuation blister powder for inhalation (Arnuity Ellipta) Allergy/AdvReac Type Severity Reaction Status Date / Time salmon oil AdvReac Intermediate Nausea Verified 12/06/24 06:01 tuna oil AdvReac Intermediate Nausea Verified 12/06/24 06:01 erythromycin base AdvReac Mild Upset Verified 12/06/24 06:01 Stomach tomato AdvReac Mild Upset Verified 12/06/24 06:01 Stomach potato AdvReac Upset Verified 12/06/24 06:01 Stomach Surgical History History of cardiac catheterization History of surgery on wrist History of esophagogastroduodenoscopy (EGD) Hx of colonoscopy H/O bilateral mastectomy Social History Smoking Status: Never smoker ROS Constitutional Constitutional: Denies fatigue, fever(s), poor appetite, weight gain or weight loss Gastrointestinal Gastrointestinal: Denies belching, bloating, change in bowel habits, change in stool character, chewing difficulty, coffee ground emesis, constipation, cramping, diarrhea, dyspepsia, dysphagia, early satiety, excessive flatus, fecal incontinence, heartburn, hematemesis, hematochezia, hemorrhoids, loose stools, melena, nausea, odynophagia, rectal bleeding, tenesmus, vomiting or weight changes Vital Signs Vital Signs Vital Signs: 12/06/24 06:02 12/06/24 06:02 12/06/24 06:23 Temperature 97.2 F L 97.2 F L Temperature Source Temporal Pulse Rate 57 L 57 L Respiratory Rate 16 16 Respiratory Pattern Normal Blood Pressure 123/85 H 123/85 H Blood Pressure Mean 97 Blood Pressure Source Monitor Blood Pressure Position Semi-Fowlers Blood Pressure Location Left Arm Pulse Ox 100 100 Oxygen Delivery Method Room Air Room Air Weight Weight: 116 lb 13.52 oz Body Mass Index (BMI) 19.4 Physical Exam Const alert, oriented x3, no apparent distress and healthy appearing General Appearance: cooperative GI normal to inspection, nondistended, normoactive bowel sounds, soft to palpation, non-tender and non-distended Percussion: normal to percussion Rectal Exam: deferred Assessment & Plan Assessment/Plan (1) Screening for colon cancer: PLAN: Assessment and Plan Assessment and Plan (1) Chronic cough: Status: Chronic Plan: Manny is a 69 yo female pt here today for pre colonoscopy consultation. Pt established with [facility] in 2022 for issues with a chronic cough. She underwent EGD which did not show any abnormalities. Autoimmune work up for Sjogren and scleroderma was without abnormality. She continues to have cough with the only remedy being a cough drop. I have advised she seen ENT for f/u regarding this. her last colonoscopy was about 7 years ago with recommendation for repeat in 7 years. She will be scheduled for this today. -Colonoscopy -f/u with ENT for cough (2) Screening for colon cancer: Status: Acute
--- NOTE | 2024-12-06 07:17 | OP.COLON_ITS ---
Patient Name: Izzy Rosenthal Procedure Date: 12/06/2024 6:28 AM Date of : 1955 Age: 69 Procedure: Colonoscopy Indications: Screening for colorectal malignant neoplasm Providers: Homero Chou DO Referring MD: Cole Cabello Do Medicines: Monitored Anesthesia Care Patient Profile: This is a 69 year old female. Refer to note in patient chart for documentation of history and physical. Last Colonoscopy: several years ago. Complications: No immediate complications. Procedure: Pre-Anesthesia Assessment: - Prior to the procedure, a History and Physical was performed, and patient medications and allergies were reviewed. The patient is competent. The risks and benefits of the procedure and the sedation options and risks were discussed with the patient. All questions were answered and informed consent was obtained. Patient identification and proposed procedure were verified by the physician in the pre-procedure area. Mental Status Examination: alert and oriented. Airway Examination: normal oropharyngeal airway and neck mobility. Respiratory Examination: clear to auscultation. CV Examination: normal. ASA Grade Assessment: II - A patient with mild systemic disease. After reviewing the risks and benefits, the patient was deemed in satisfactory condition to undergo the procedure. The anesthesia plan was to use monitored anesthesia care (MAC). Immediately prior to administration of medications, the patient was re-assessed for adequacy to receive sedatives. The heart rate, respiratory rate, oxygen saturations, blood pressure, adequacy of pulmonary ventilation, and response to care were monitored throughout the procedure. The physical status of the patient was re-assessed after the procedure. After I obtained informed consent, the scope was passed under direct vision. Throughout the procedure, the patient's blood pressure, pulse, and oxygen saturations were monitored continuously. The Colonoscope was introduced through the anus and advanced to the terminal ileum. The colonoscopy was performed without difficulty. The patient tolerated the procedure well. The quality of the bowel preparation was adequate. The terminal ileum, ileocecal valve, appendiceal orifice, and rectum were photographed. Scope In: 6:53:48 AM Scope Withdrawal Time 0 hours 10 minutes 13 seconds Scope Out: 7:08:37 AM Total Procedure Duration Time 0 hours 14 minutes 49 seconds Findings: The perianal and digital rectal examinations were normal. Localized mild inflammation was found in the rectum. Biopsies were taken with a cold forceps for histology. Verification of patient identification for the specimen was done. Estimated blood loss was minimal. Moderate rectal prolapse was present. Impression: - Localized mild inflammation was found in the rectum secondary to proctitis. Biopsied. - Rectal prolapse. Recommendation: - Discharge patient to home. - Resume previous diet. - Continue present medications. - Await pathology results. - Repeat colonoscopy in 10 years for screening purposes. Procedure Code(s): --- Professional --- 73363, Colonoscopy, flexible; with biopsy, single or multiple CPT copyright 2021 [employer]. All rights reserved. The codes documented in this report are preliminary and upon insurance coder review may be revised to meet current compliance requirements. Homero Chou DO 12/06/2024 7:16:28 AM This report has been signed electronically. Number of Addenda: 0 Note Initiated On: 12/06/2024 6:28 AM
--- NOTE | 2024-12-06 07:17 | OP.PROVAT_ITS ---
12/06/2024 Cole Cabello Do Re : Colonoscopy procedure for Izzy Rosenthal Dear Destiney This procedure was performed on Friday, December 06, 2024. My impressions and recommendations are as follows: Impressions : - Localized mild inflammation was found in the rectum secondary to proctitis. Biopsied. - Rectal prolapse. Recommendations : - Discharge patient to home. - Resume previous diet. - Continue present medications. - Await pathology results. - Repeat colonoscopy in 10 years for screening purposes. My findings are described in the full procedure note, which is enclosed. If I can be of further assistance, please feel free to contact me at . Sincerely, Homero Chou, 12/06/2024 7:16:28 AM This report has been signed electronically.
--- NOTE | 2024-12-06 07:19 | PCM.POST.ANE ---
Anesthesia: Postop Eval I Current Vital Signs Temperature: 97.3 F Pulse Rate: 71 Blood Pressure: 96/59 Respiratory Rate: 16 Pulse Ox: 97 Oxygen Delivery Method: Room Air Assessment Airway patent: Yes Spontaneous unlabored respirations: Yes Mental status: Asleep nausea: No Vomiting: No Anesthesia Complication: No Fluid Hydration Crystalloid volume administer (ml): 600 Total IV fluid infused: 600 Progress Note Anesthesia document: Postop Eval 1 completed: Yes
--- NOTE | 2024-12-06 11:10 | PCM.POSTANE2 ---
Anesthesia Postop Eval I Sum Postop Eval Completion status Anesthesia document: Postop Eval 1 completed: Yes Anesthesia Postop Eval I Summary Anesthesia Postop Eval I Summary: Anesthesia Postop Eval I: Assessment Summary Airway patent Yes 12/06/24 07:19 [email or web address] Spontaneous unlabored Yes 12/06/24 07:19 [email or web address] respirations Mental status Asleep 12/06/24 07:19 [email or web address] nausea No 12/06/24 07:19 [email or web address] Vomiting No 12/06/24 07:19 [email or web address] Anesthesia Postop Eval I: Fluid Summary Crystalloid volume administer 600 12/06/24 07:19 [email or web address] (ml) Colloids volume administered ( ml) Blood Product volume administered (ml) Total IV fluid infused 600 12/06/24 07:19 [email or web address] Anesthesia Postop Eval I: Summary Notes Anesthesia Complication No 12/06/24 07:19 [email or web address] Anesthesia Complication Comment: Post-operative progress note Anesthesia: Postop Eval II Evaluation Mental status: Awake and Calm Pain Level: 0 nausea: No Vomiting: No Progress Note Post-operative progress note: Tolerated well, meets Discharge criteria Complications Anesthesia Complication: No
== END 2024-12-06 08:03 | disposition home or self-care (01) ==
LOC: EN 05:34 → AC 05:35
PROVIDERS: PCP Student in an Organized Health Care Education/Training Program; Referring Provider Student in an Organized Health Care Education/Training Program; Visit Provider Internal Medicine Gastroenterology
PROC: 0DJD8ZZ Inspection of Lower Intestinal Tract, Via Natural or Artificial Opening Endoscopic (ICD-10-PCS; CPT 45378; principal; 2024-12-06 06:25)
DX: Z12.11 Encounter for screening for malignant neoplasm of colon (principal); K62.3 Rectal prolapse; K62.89 Other specified diseases of anus and rectum; R19.7 Diarrhea, unspecified; K59.4 Anal spasm; K92.1 Melena; K21.9 Gastro-esophageal reflux disease without esophagitis; M85.80 Other specified disorders of bone density and structure, unspecified site; J45.30 Mild persistent asthma, uncomplicated; Z79.51 Long term (current) use of inhaled steroids; Z79.899 Other long term (current) drug therapy
CPT/HCPCS: 45380; 88305; J2405